=== PATIENT | male | born 1955 | race Caucasian/White ===

== ENCOUNTER 2017-05-13 11:31 | Inpatient (IN) | payer OTHER, MEDICARE ==
[~2017-05-13] VITALS: Ht 182.9 cm; Wt 89.5 kg
[~2017-05-13 11:31] MED LIST: CEPH500C3 PO; CLON-352 PO; DOXY100T PO; GABA400C5 PO; GLUCTAB PO; LISI-363 PO; LORA0.5T PO; LORTA5 PO; NEUR400C PO
[2017-05-13 11:47] VITALS: BP 121/60; PULSE 81; RESP 18; TEMP 97.8; O2SAT 99
--- NOTE | 2017-05-13 11:51 | PD ---
HPI Chief Complaint: Gomez act/psych issues Time Seen by Provider: 11:46 Travel History International Travel<30 days: No Contact w/Intl Traveler<30days: No History of Present Illness HPI 62-year-old male presents the emergency department via police under the Gomez act for suicidal ideation. Patient called 911 this morning stating that he couldn't go on anymore. Police responded and he again reiterated that he was suicidal. Patient does not have a specific plan for killing himself. He is placed under the Gomez act and brought to the emergency department for further evaluation and treatment. Patient has multiple medical problems including hypertension and diabetes as well as history of bipolar disorder for which she is not taking his meds for several weeks. He complains of chronic left shoulder pain which has been ongoing for the past year. He denies fever, chills, but reports being very thirsty. He denies any recent drug use but has had some alcohol this morning. He has no known drug allergies. 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) Reproductive: No Respiratory: No Immunizations Current: Yes Migraines: No Myocardial Infarction: No Renal Failure: No Seizures: No Sleep Apnea: No Ulcer: No PNEUMOCCOCAL Vaccine (Year): 2 Past Surgical History Abdominal Surgery: No Appendectomy: No Cardiac Surgery: No Cholecystectomy: No Ear Surgery: No Endocrine Surgery: No Eye Surgery: No Genitourinary Surgery: No Gynecologic Surgery: No Neurologic Surgery: Yes (NECK SURGERY; CURRENTLY DENIES) Oral Surgery: No Thoracic Surgery: No Social History Alcohol Use: Yes (STATES HE BINGE DRINKS SEVERAL TIMES A MONTH) Tobacco Use: Yes (1 PPD) Substance Use: No Allergies-Medications (Allergen,Severity, Reaction): Coded Allergies: No Known Allergies (Verified , 05/13/17) Reported Meds & Prescriptions Reported Meds & Active Scripts Active Reported Hydrocodone-Acetaminophen 10-325 mg Tab 1 Tab PO Q6H PRN Glipizide 5 Mg Tab 2.5 Mg PO DAILY Take 30 minutes before a meal Lisinopril 20 Mg Tab 20 Mg PO DAILY Alprazolam 0.5 Mg Tab 0.5 Mg PO Q8H PRN Atorvastatin (Atorvastatin Calcium) 20 Mg Tab 20 Mg PO HS Clonidine (Clonidine HCl) 0.1 Mg Tab 0.1 Mg PO BID Proair Hfa 8.5 GM Inh (Albuterol Sulfate) 90 Mcg/Act Aer 2 Puff INH Q4-6H PRN 108 mcg/actuation Metformin (Metformin HCl) 500 Mg Tab 500 Mg PO TID With meals Review of Systems Except as stated in HPI: all other systems reviewed are Neg General / Constitutional: No: Fever, Chills Eyes: No: Visual changes HENT: No: Headaches, Sore Throat, Rhinitis, Rhinorrhea Cardiovascular: No: Chest Pain or Discomfort Respiratory: No: Cough, Shortness of Breath Gastrointestinal: No: Nausea, Vomiting, Diarrhea, Abdominal Pain Genitourinary: No: Dysuria Musculoskeletal: No: Pain Skin: No Rash Neurologic: No: Weakness Psychiatric: No: Depression Endocrine: No: Polydipsia Hematologic/Lymphatic: No: Easy Bruising Physical Exam Narrative GENERAL: Patient appears in no acute distress. SKIN: Warm and dry. Normal color. Normal turgor. Older abrasion to the inner left forearm. No current open wounds or bleeding. HEAD: Atraumatic. Normocephalic. EYES: Pupils equal and round. No scleral icterus. No injection or drainage. ENT: No nasal bleeding or discharge. Mucous membranes pink and moist. Pharynx is clear. NECK: Trachea midline. Supple and nontender. CARDIOVASCULAR: Regular rate and rhythm. RESPIRATORY: No accessory muscle use. Clear to auscultation. Breath sounds equal bilaterally. GASTROINTESTINAL: Abdomen soft, non-tender, nondistended. Hepatic and splenic margins not palpable. MUSCULOSKELETAL: Extremities without clubbing, cyanosis, or edema. No obvious deformities. NEUROLOGICAL: Awake and alert. No obvious cranial nerve deficits. Motor grossly within normal limits. Five out of 5 muscle strength in the arms and legs. Normal speech. PSYCHIATRIC: Appropriate mood and affect; insight and judgment normal. Data Data Last Documented VS Vital Signs Date Time Temp Pulse Resp B/P Pulse Ox O2 Delivery O2 Flow Rate FiO2 05/13/17 11:55 17 99 Room Air 05/13/17 11:47 97.8 81 121/60 Orders Complete Blood Count With Diff (05/13/17 11:51) Comprehensive Metabolic Panel (05/13/17 11:51) Urinalysis - C+S If Indicated (05/13/17 11:51) Iv Access Insert/Monitor (05/13/17 11:51) Ecg Monitoring (05/13/17 11:51) Oximetry (05/13/17 11:51) Sodium Chloride 0.9% Flush (Ns Flush) (05/13/17 12:00) Labs Laboratory Tests Test 05/13/17 11:51 White Blood Count 7.5 TH/MM3 Red Blood Count 3.77 MIL/MM3 Hemoglobin 12.7 GM/DL Hematocrit 36.0 % Mean Corpuscular Volume 95.4 FL Mean Corpuscular Hemoglobin 33.5 PG Mean Corpuscular Hemoglobin 35.2 % Concent Red Cell Distribution Width 13.1 % Platelet Count 227 TH/MM3 Mean Platelet Volume 8.7 FL Neutrophils (%) (Auto) 69.2 % Lymphocytes (%) (Auto) 20.2 % Monocytes (%) (Auto) 9.0 % Eosinophils (%) (Auto) 1.4 % Basophils (%) (Auto) 0.2 % Neutrophils # (Auto) 5.2 TH/MM3 Lymphocytes # (Auto) 1.5 TH/MM3 Monocytes # (Auto) 0.7 TH/MM3 Eosinophils # (Auto) 0.1 TH/MM3 Basophils # (Auto) 0.0 TH/MM3 CBC Comment DIFF FINAL Differential Comment Sodium Level 123 MEQ/L Potassium Level 4.3 MEQ/L Chloride Level 89 MEQ/L Carbon Dioxide Level 20.7 MEQ/L Anion Gap 13 MEQ/L Blood Urea Nitrogen 5 MG/DL Creatinine 1.03 MG/DL Estimat Glomerular Filtration 74 ML/MIN Rate Random Glucose 137 MG/DL Calcium Level 7.1 MG/DL Protein Corrected Calcium 7.5 MG/DL Total Bilirubin 0.7 MG/DL Aspartate Amino Transf 84 U/L (AST/SGOT) Alanine Aminotransferase 57 U/L (ALT/SGPT) Alkaline Phosphatase 68 U/L Total Protein 6.4 GM/DL Albumin 3.4 GM/DL [facility] Medical Decision Making Medical Screen Exam Complete: Yes Emergency Medical Condition: Yes Medical Record Reviewed: Yes Differential Diagnosis Gomez act. Suicidal ideation. Bipolar disorder. Narrative Course Patient is medically stable. Psychiatric labs are ordered per protocol. Psychiatric eval is ordered. CBC shows mild anemia with a hemoglobin of 12.1. CMP shows sodium 123. Chloride of 89. Potassium is 4.3, carbon dioxide is 20.7. BUN is 5. Creatinine is 1.03. Leukos is 137. Calcium is 7.1. Corrected calcium is 7.5. Patient discussed with Dr. Amador who feels the patient should be admitted for his hyponatremia, prior to psych eval. 1310 hrs. call was placed to the hospitalist for admission. Diagnosis Primary Impression: Hyponatremia Additional Impressions: Diabetes Qualified Code: E11.8 - Type 2 diabetes mellitus with complication, without long-term current use of insulin HTN (hypertension) Qualified Code: I10 - Hypertension, unspecified type Chronic pain Qualified Code: G89.29 - Other chronic pain Depression with suicidal ideation Admitting Information Admitting Physician Requests: Admit Condition: Stable Eidlson Prado May 13, 2017 11:51
[2017-05-13 11:55] VITALS: RESP 17; O2SAT 99
[2017-05-13] MEDS ORDERED: SODIUM CHLORIDE 0.9% FLUSH 10 ML FLUSH IV FLUSH PRN (12:00)
[2017-05-13] MEDS ORDERED: GLIP5TAB8 PO (12:20)
[2017-05-13] MEDS ORDERED: METF500T PO (12:20)
[2017-05-13] MEDS ORDERED: LISI-515 PO (12:20)
[2017-05-13] MEDS ORDERED: ALPR0.5T3 PO (12:20)
[2017-05-13] MEDS ORDERED: ALBUAER3 INH (12:20)
[2017-05-13] MEDS ORDERED: HYDR-3583 PO (12:20)
[2017-05-13] MEDS ORDERED: CLON0.1T PO (12:20)
[2017-05-13] MEDS ORDERED: ATOR20TA15 PO (12:20)
[2017-05-13 12:32] LABS: AUTOMATED NEUTROPHIL # 5.2 TH/MM3 (1.8-7.7); BASOPHIL % 0.2 % (0.0-2.0); EOSINOPHIL # 0.1 TH/MM3 (0-0.4); EOSINOPHIL % 1.4 % (0.0-4.0); HEMO FLAGS DIFF FINAL; LYMPH % 20.2 % (9.0-44.0); LYMPHOCYTE # 1.5 TH/MM3 (1.0-4.8); MEAN CELL VOLUME 95.4 FL (80.0-100.0); MEAN CORPUSCULAR HEMOGLOBIN 33.5 PG (27.0-34.0); MEAN CORPUSCULAR HGB CONC 35.2 % (32.0-36.0); NEUT % 69.2 % (16.0-70.0); PLATELET COUNT 227 TH/MM3 (150-450); RED BLOOD COUNT 3.77 MIL/MM3 (4.50-5.90); RED CELL DISTRIBUTION WIDTH 13.1 % (11.6-17.2); WHITE BLOOD COUNT 7.5 TH/MM3 (4.0-11.0)
[2017-05-13 12:54] LABS: BICARBONATE 20.7 MEQ/L (21.0-32.0); CALCIUM-PROTEIN CORRECTED 7.5 MG/DL (8.5-10.1); POTASSIUM 4.3 MEQ/L (3.5-5.1); TOTAL BILIRUBIN ADULT 0.7 MG/DL (0.2-1.0)
--- NOTE | 2017-05-13 13:27 | PD ---
Data Data Last Documented VS Vital Signs Date Time Temp Pulse Resp B/P Pulse Ox O2 Delivery O2 Flow Rate FiO2 05/13/17 11:55 17 99 Room Air 05/13/17 11:47 97.8 81 121/60 Orders Complete Blood Count With Diff (05/13/17 11:51) Comprehensive Metabolic Panel (05/13/17 11:51) Urinalysis - C+S If Indicated (05/13/17 11:51) Iv Access Insert/Monitor (05/13/17 11:51) Ecg Monitoring (05/13/17 11:51) Oximetry (05/13/17 11:51) Sodium Chloride 0.9% Flush (Ns Flush) (05/13/17 12:00) Diet 1800 Ada Cons Carb (05/13/17 Lunch) Diet Heart Healthy (05/13/17 Lunch) Vital Signs (Adult) LUIS.Q4H (05/13/17 13:20) Sodium (Na) (05/13/17 18:00) Sodium (Na) (05/14/17 00:00) Basic Metabolic Panel (Bmp) (05/14/17 06:00) Blood Glucose Goal (Criteria) (05/13/17 13:20) Hypoglycemia 70 Mg/Dl Or < (05/13/17 13:20) Notify Dr: Other (05/13/17 13:20) Dextrose 50% In José Miguel (Vial) Inj (D50w (Vi (05/13/17 13:30) Glucagon Inj (Glucagon Inj) (05/13/17 13:30) Insulin Aspart Supplemtl Scale (Novolog (05/13/17 16:00) Electrocardiogram (05/13/17 ) Admit Order (Ed Use Only) (05/13/17 13:21) Labs Laboratory Tests Test 05/13/17 11:51 White Blood Count 7.5 TH/MM3 Red Blood Count 3.77 MIL/MM3 Hemoglobin 12.7 GM/DL Hematocrit 36.0 % Mean Corpuscular Volume 95.4 FL Mean Corpuscular Hemoglobin 33.5 PG Mean Corpuscular Hemoglobin 35.2 % Concent Red Cell Distribution Width 13.1 % Platelet Count 227 TH/MM3 Mean Platelet Volume 8.7 FL Neutrophils (%) (Auto) 69.2 % Lymphocytes (%) (Auto) 20.2 % Monocytes (%) (Auto) 9.0 % Eosinophils (%) (Auto) 1.4 % Basophils (%) (Auto) 0.2 % Neutrophils # (Auto) 5.2 TH/MM3 Lymphocytes # (Auto) 1.5 TH/MM3 Monocytes # (Auto) 0.7 TH/MM3 Eosinophils # (Auto) 0.1 TH/MM3 Basophils # (Auto) 0.0 TH/MM3 CBC Comment DIFF FINAL Differential Comment Sodium Level 123 MEQ/L Potassium Level 4.3 MEQ/L Chloride Level 89 MEQ/L Carbon Dioxide Level 20.7 MEQ/L Anion Gap 13 MEQ/L Blood Urea Nitrogen 5 MG/DL Creatinine 1.03 MG/DL Estimat Glomerular Filtration 74 ML/MIN Rate Random Glucose 137 MG/DL Calcium Level 7.1 MG/DL Protein Corrected Calcium 7.5 MG/DL Total Bilirubin 0.7 MG/DL Aspartate Amino Transf 84 U/L (AST/SGOT) Alanine Aminotransferase 57 U/L (ALT/SGPT) Alkaline Phosphatase 68 U/L Total Protein 6.4 GM/DL Albumin 3.4 GM/DL MDM Supervised Visit with VALENTE: Yes Narrative Course The history, exam, and medical decision-making in the associated midlevel provider note were completed with my assistance. I reviewed and agree with the findings presented. I attest that I had a [id number] encounter with the patient on the same day, and personally performed and documented my assessment and findings in the medical record. *My assessment and Findings: This is a 62-year-old male who was brought into the emergency department under a Gomez act for suicidal ideation. He does have a history of some alcohol abuse in the past. Labs are obtained which demonstrate hyponatremia. Clinically he looks dry. He will be admitted for gentle IV hydration and can see psychiatry as an inpatient. Diagnosis Primary Impression: Hyponatremia Additional Impressions: HTN (hypertension) Qualified Code: I10 - Hypertension, unspecified type Chronic pain Qualified Code: G89.29 - Other chronic pain Depression with suicidal ideation Diabetes Qualified Code: E11.8 - Type 2 diabetes mellitus with complication, without long-term current use of insulin Condition: Raquel Padilla MD May 13, 2017 13:27
[2017-05-13] MEDS ORDERED: DEXTROSE 50% IN WATER 50 ML VIAL(D50) IV PRN (13:30)
[2017-05-13] MEDS ORDERED: GLUCAGON 1 MG/ML VIAL OTHER PRN (13:30)
--- NOTE | 2017-05-13 13:43 | HHI.HP ---
[facility]Staff Admission Diagnosis Hyponatremia/Suicidal Diagnoses: (1) Hyponatremia Diagnosis: Principal (2) Suicidal thoughts Diagnosis: Principal Chief Complaint: suicidal thoughts Travel History International Travel<30 Days: No Contact w/Intl Traveler <30 Da: No Traveled to Known Affected Are: No History of Present Illness patient is a 62 y/o male with history of hypertension,diabetes,dyslipidemia and COPD who was brought to ER under gomez act - with suicidal thoughts.he says that he's depressed, tired and start to drink a bit recently. he says that his last drink was last night. he's complaining of some lower extremity muscle spasm and some nausea. he says that he had a recent fall with no head trauma or loss of consciousness.he denies any abdominal pain, chest pain and is in no respiratory distress. Review of Systems Constitutional: DENIES: Fever, Weight loss, Chills, Night Sweats Eyes: DENIES: Blurred vision, Diplopia, Vision loss, Double Vision Ears, nose, mouth, throat: DENIES: Tinnitus, Vertigo, Throat pain, Epistaxis Respiratory: DENIES: Apneas, Cough, Snoring, Wheezing, Hemoptysis, Sputum production, Shortness of breath Cardiovascular: DENIES: Chest pain, Palpitations, Syncope, Dyspnea on Exertion , PND, Lower Extremity Edema, Orthopnea, Claudication Gastrointestinal: COMPLAINS OF: Nausea, DENIES: Abdominal pain, Black stools, Bloody stools, Constipation, Diarrhea, Vomiting, Difficulty Swallowing, Anorexia Genitourinary: DENIES: Urinary frequency, Urgency, Hematuria, Dysuria Musculoskeletal: COMPLAINS OF: Muscle aches, DENIES: Joint pain, Stiffness, Joint Swelling Integumentary: DENIES: Rash Neurologic: DENIES: Abnormal gait, Headache, Localized weakness, Paresthesias, Seizures, Speech Problems, Tremor, Poor Balance Psychiatric: COMPLAINS OF: Depression, Suicidal Ideation, DENIES: Anxiety, Confusion, Mood changes, Hallucinations, Agitation, Homicidal Ideation, Delusions Past Family Social History Past Medical History hypertension diabetes mellitus dyslipidemia COPD Past Surgical History none. Reported Medications Hydrocodone-Acetaminophen 10-325 mg Tab 1 Tab PO Q6H PRN Glipizide 5 Mg Tab 2.5 Mg PO DAILY Take 30 minutes before a meal Lisinopril 20 Mg Tab 20 Mg PO DAILY Alprazolam 0.5 Mg Tab 0.5 Mg PO Q8H PRN Atorvastatin (Atorvastatin Calcium) 20 Mg Tab 20 Mg PO HS Clonidine (Clonidine HCl) 0.1 Mg Tab 0.1 Mg PO BID Proair Hfa 8.5 GM Inh (Albuterol Sulfate) 90 Mcg/Act Aer 2 Puff INH Q4-6H PRN 108 mcg/actuation Metformin (Metformin HCl) 500 Mg Tab 500 Mg PO TID With meals Allergies: Coded Allergies: No Known Allergies (Verified , 05/13/17) Active Ordered Medications Current Medications Sodium Chloride (NS Flush) 2 ml UNSCH PRN IV FLUSH FLUSH AFTER USING IV ACCESS ; Start 05/13/17 at 12:00 Dextrose (D50w (Vial) Inj) 50 ml UNSCH PRN IV HYPOGLYCEMIA-SEE COMMENTS; Start 05/13/17 at 13:30 Glucagon (Glucagon Inj) 1 mg UNSCH PRN OTHER HYPOGLYCEMIA-SEE COMMENTS; Start 05/13/17 at 13:30 Insulin Aspart (NovoLOG SUPPLEMENTAL SCALE) 1 ACHS SLIDING SCALE SQ ; Start 07/20 at 16:00 Family History not relevant to this presentation. Social History smokes a pack a day - with binge drinking. Physical Exam Vital Signs Vital Signs Date Time Temp Pulse Resp B/P Pulse Ox O2 Delivery O2 Flow Rate FiO2 05/13/17 11:55 17 99 Room Air 05/13/17 11:47 17 05/13/17 11:47 97.8 81 18 121/60 99 Physical Exam GENERAL: This is a well-nourished, well-developed patient, in no apparent distress. SKIN:bruise noted on the left upper extremity. HEAD: Atraumatic. Normocephalic. No temporal or scalp tenderness. EYES: Pupils equal round and reactive. Extraocular motions intact. No scleral icterus. No injection or drainage. ENT: Nose without bleeding, purulent drainage or septal hematoma. Throat without erythema, tonsillar hypertrophy or exudate. Uvula midline. Airway patent. NECK: Trachea midline. No JVD or lymphadenopathy. Supple, nontender, no meningeal signs. CARDIOVASCULAR: Regular rate and rhythm without murmurs, gallops, or rubs. RESPIRATORY: Clear to auscultation. Breath sounds equal bilaterally. No wheezes , rales, or rhonchi. GASTROINTESTINAL: Abdomen soft, non-tender, nondistended. No hepato-splenomegaly , or palpable masses. No guarding. MUSCULOSKELETAL: Extremities without clubbing, cyanosis, or edema. No joint tenderness, effusion, or edema noted. No calf tenderness. Negative Homans sign bilaterally. NEUROLOGICAL: Awake and alert. Cranial nerves II through XII intact. Motor and sensory grossly within normal limits. Five out of 5 muscle strength in all muscle groups. Normal speech. Laboratory Laboratory Tests Test 05/13/17 11:51 White Blood Count 7.5 Red Blood Count 3.77 Hemoglobin 12.7 Hematocrit 36.0 Mean Corpuscular Volume 95.4 Mean Corpuscular Hemoglobin 33.5 Mean Corpuscular Hemoglobin 35.2 Concent Red Cell Distribution Width 13.1 Platelet Count 227 Mean Platelet Volume 8.7 Neutrophils (%) (Auto) 69.2 Lymphocytes (%) (Auto) 20.2 Monocytes (%) (Auto) 9.0 Eosinophils (%) (Auto) 1.4 Basophils (%) (Auto) 0.2 Neutrophils # (Auto) 5.2 Lymphocytes # (Auto) 1.5 Monocytes # (Auto) 0.7 Eosinophils # (Auto) 0.1 Basophils # (Auto) 0.0 CBC Comment DIFF FINAL Differential Comment Sodium Level 123 Potassium Level 4.3 Chloride Level 89 Carbon Dioxide Level 20.7 Anion Gap 13 Blood Urea Nitrogen 5 Creatinine 1.03 Estimat Glomerular Filtration 74 Rate Random Glucose 137 Calcium Level 7.1 Protein Corrected Calcium 7.5 Total Bilirubin 0.7 Aspartate Amino Transf 84 (AST/SGOT) Alanine Aminotransferase 57 (ALT/SGPT) Alkaline Phosphatase 68 Total Protein 6.4 Albumin 3.4 Result Diagram: 05/13/17 1151 05/13/17 1151 Assessment and Plan Assessment and Plan A/P - suicidal thoughts- on Gomez act- will consult psych- sitter at the bedside. -hyponatremia- likely due to alcohol abuse- will start IV NS and monitor the sodium level. -diabetes mellitus; accu-check with SSI -hypertension; hold BP meds for now- -COPD with no exacerbation; albuterol as needed. -DVT prophylaxis with SCD's Discussed Condition With ER and the patient. Physician Certification 2 Midnight Certification Type: Admission for Inpatient Services Order for Inpatient Services The services are ordered in accordance with Medicare regulations or non- Medicare payer requirements, as applicable. In the case of services not specified as inpatient-only, they are appropriately provided as inpatient services in accordance with the 2-midnight benchmark. Estimated LOS (days): 2 days is the estimated time the patient will need to remain in the hospital, assuming treatment plan goals are met and no additional complications. Post-Hospital Plan: Not yet determined Adriane Bal MD May 13, 2017 13:43
[2017-05-13] MEDS ORDERED: LORazepam 1 MG TAB PO PRN (13:45)
[2017-05-13] MEDS ORDERED: FLUMAZENIL 0.5 MG/5 ML VIAL IV PUSH PRN (13:45)
[2017-05-13] MEDS ORDERED: LORazepam 2 MG TAB PO PRN (13:45)
[2017-05-13] MEDS ORDERED: LORazepam 2 MG/ML VIAL IV PUSH PRN ×4 (13:45)
[2017-05-13] MEDS: THIAMINE HCL 100 MG TAB PO SCH (13:53)
--- NOTE | 2017-05-13 13:57 | RADRPT ---
EXAM DATE/TIME: 05/13/2017 13:45 [facility] COMPARISON: No previous studies available for comparison. INDICATIONS : Short of breath MEDICAL HISTORY : Chronic obstructive pulmonary disease. SURGICAL HISTORY : None. ENCOUNTER: Initial ACUITY: 1 day PAIN SCORE: 0/10 LOCATION: chest FINDINGS: A single view of the chest demonstrates the lungs to be symmetrically aerated without evidence of mas s, infiltrate or effusion. The cardiomediastinal contours are unremarkable. Osseous structures are intact. CONCLUSION: Normal examination for a patient of this age. Sawyer Wang MD on May 13, 2017 at 13:56 Board Certified Radiologist. This report was verified electronically.
[2017-05-13 14:00] VITALS: BP 118/67; PULSE 78; RESP 17; TEMP 97.9; O2SAT 99
[2017-05-13] MEDS: SODIUM CHLOR 0.9% 1000 ML INJ 1,000 ML IV SCH (14:21)
[2017-05-13] MEDS: ALPRAZolam 0.5 MG TAB PO PRN ×2 (14:21→22:15)
[2017-05-13 14:36] LABS: BLOOD, URINE NEG (NEG); COMMENT (UR) CULT NOT INDICATED; CULTURE IF INDICATED CULT NOT INDICATED; GLUCOSE,URINE NEG (NEG); KETONE, URINE NEG (NEG); NITRITE,URINE NEG (NEG); PH, URINE 6.5 (5.0-8.5); SQUAMOUS EPITHELIAL CELL URINE <1 /hpf (0-5); URINE COLOR YELLOW (YELLW/STRAW)
[2017-05-13] MEDS: INSULIN ASPART SUPPLEMENTAL SCALE SQ SCH ×2 (15:48→22:16)
[2017-05-13 15:50] VITALS: BP 102/70; TEMP 97.8
[2017-05-13 16:10] VITALS: BP 118/57; PULSE 39; RESP 16; TEMP 97.1; O2SAT 99
[2017-05-13] MEDS ORDERED: ALBUTEROL SULFATE 90 MCG/ACT HFA 8 GM INHALER INH PRN (18:00)
[2017-05-13 20:00] VITALS: BP 141/65; PULSE 82; RESP 20; TEMP 98.1; O2SAT 97
[2017-05-13] MEDS: ATORVASTATIN 20 MG TAB PO SCH (22:15)
[2017-05-14] VITALS (9 sets, daily range): BP systolic 87–153; BP diastolic 54–76; PULSE 33–109; RESP 17–18; TEMP 97.6–98.7; O2SAT 97–99
[2017-05-14 02:14] LABS: BICARBONATE 25.2 MEQ/L (21.0-32.0); POTASSIUM 3.7 MEQ/L (3.5-5.1)
[2017-05-14 02:30] LABS: CALCIUM-PROTEIN CORRECTED 7.2 MG/DL (8.5-10.1)
[2017-05-14] MEDS ORDERED: CALCIUM GLUCONATE 10% 1 GM/10 ML VIAL IV PUSH ONE (02:45)
[2017-05-14] MEDS ORDERED: CALCIUM GLUCONATE INJ 2 GM in SODIUM CHLORIDE 0.9% INJ 100 ML IV ONE (02:45)
[2017-05-14] MEDS: INSULIN ASPART SUPPLEMENTAL SCALE SQ SCH ×4 (06:07→21:00)
[2017-05-14] MEDS: THIAMINE HCL 100 MG TAB PO SCH (09:17)
[2017-05-14] MEDS: MULTIVITAMIN TAB PO SCH (09:17)
--- NOTE | 2017-05-14 10:07 | PD.PSY.CON ---
Provisional Diagnosis Admission Date May 13, 2017 at 13:23 Landing I. A schizoaffective disorder, depressive type, alcohol use disorder Landing II. Deferred Landing III. HTN, diabetes, arthritis Landing IV. Lack of social and family support Landing V. 45 History of Present Illness Service Psychiatry Consult Requested By Reason for Consult Suicidal ideation and depression Primary Care Physician Non-Staff HPI The patient is a 62 year old man, domiciled alone, single, no kids, on disability with psychiatric history of schizoaffective disorder, bipolar type , 2 previous psychiatric hospitalizations, he has been Gomez acted before due to alcohol related issues, suicidal attempts, no established outpatient care, no psychotropics at this moment, he has been psychiatrically in [place] in the past due to alcohol intoxication and suicidal ideation, with history medical of hypertension,diabetes,dyslipidemia and COPD who was brought to ER under gomez act - with suicidal thoughts.he says that he's depressed, tired and start to drink a bit recently. he says that his last drink was last night. he's complaining of some lower extremity muscle spasm and some nausea. Admitted in the medical floor due to hyponatremia- likely due to alcohol abuse. On psychiatric evaluation today patient is found in his bed, he seems to be very distant, with marked psychomotor retardation, lack affect, objectively depressed. Patient reports that he has been increasingly drinking alcohol in the last month after a long period of sobriety. Patient says that he has been thinking seriously in ending his life and committed suicide by hanging or jumping in front of a car. Patient says the life is not worth living anymore and he has been increasingly feeling alone, detach from the society, with decreased functionality due to medical problems, with sense of worthlessness, helplessness, hopelessness, continues suicidal ideation. Yesterday he was about to lose control and he decided to call the police and give himself a chance. Patient also reports not sleeping at all, decreased weight, anhedonia, decreased level of energy "I just don't want to stick around anymore". Patient denies homicidal ideation, he denies visual and auditory hallucinations. She is unable to identify any acute stressor, but he says that his living environment is "very toxic". No protective factors identified at this moment. Patient denies visual and auditory hallucinations. Reports increased paranoia of mistrusting people around him. Oriented 3, no attention deficit, no fluctuation of consciousness. Patient denies the use of illicit drugs, increased alcohol use, he fails to quantify how much alcohol she is taking daily , just says "a lot". He reports past withdrawal symptoms, he also has been in rehabs/detox in the past,. Review of Systems Constitutional: DENIES: Diaphoretic episodes, Fatigue, Fever, Weight gain, Weight loss, Chills, Dizziness, Change in appetite, Night Sweats Endocrine: DENIES: Heat/cold intolerance, Polydipsia, Polyuria, Polyphagia Eyes: DENIES: Blurred vision, Diplopia, Eye inflammation, Eye pain, Vision loss , Photosensitivity, Double Vision Ears, nose, mouth, throat: DENIES: Tinnitus, Hearing loss, Vertigo, Nasal discharge, Oral lesions, Throat pain, Hoarseness, Ear Pain, Running Nose, Epistaxis, Sinus Pain, Toothache, Odynophagia Respiratory: DENIES: Apneas, Cough, Snoring, Wheezing, Hemoptysis, Sputum production, Shortness of breath Cardiovascular: DENIES: Chest pain, Palpitations, Syncope, Dyspnea on Exertion , PND, Lower Extremity Edema, Orthopnea, Claudication Gastrointestinal: DENIES: Abdominal pain, Black stools, Bloody stools, Constipation, Diarrhea, Nausea, Vomiting, Difficulty Swallowing, Anorexia Musculoskeletal: COMPLAINS OF: Muscle aches, Back pain Integumentary: DENIES: Abnormal pigmentation, Nail changes, Pruritus, Rash Hematologic/lymphatic: DENIES: Bruising, Lymphadenopathy Immunologic/allergic: DENIES: Eczema, Urticaria Neurologic: DENIES: Abnormal gait, Headache, Localized weakness, Paresthesias, Seizures, Speech Problems, Tremor, Poor Balance Psychiatric: COMPLAINS OF: Depression, Suicidal Ideation Past Family Social History Coded Allergies: No Known Allergies (Verified , 05/13/17) Reported Medications Hydrocodone-Acetaminophen 10-325 mg Tab1 Tab PO Q6H PRN (PAIN) Ref 0 05/13/17 Glipizide 5 Mg Tab2.5 Mg PO DAILY #60 TAB Ref 0 Take 30 minutes before a meal 05/13/17 Lisinopril 20 Mg Tab20 Mg PO DAILY #30 TAB Ref 0 05/13/17 Alprazolam 0.5 Mg Tab0.5 Mg PO Q8H PRN (ANXIETY) Ref 0 05/13/17 Atorvastatin 20 Mg Tab20 Mg PO HS #30 TAB Ref 0 05/13/17 Clonidine 0.1 Mg Tab0.1 Mg PO BID #60 TAB Ref 0 05/13/17 Albuterol 8.5 GM Inh (Proair Hfa 8.5 GM Inh)90 Mcg/Act Aer2 Puff INH Q4-6H PRN ( SHORTNESS OF BREATH) #1 INHALER Ref 0 108 mcg/actuation 05/13/17 Metformin 500 Mg [id number] Mg PO TID #60 TAB Ref 0 With meals 05/13/17 Current Medications Medications (Trade) Dose Ordered Sig/Lillian Route Start Time Stop Time Status Last Admin (NS Flush) 2 ml UNSCH PRN IV FLUSH 05/13/17 12:00 (D50w (Vial) Inj) 50 ml UNSCH PRN IV 05/13/17 13:30 (Glucagon Inj) 1 mg UNSCH PRN OTHER 05/13/17 13:30 (Romazicon Inj) 0.2 mg Q1M PRN IV PUSH 05/13/17 13:45 (Ativan) 1 mg Q4H PRN PO 05/13/17 13:45 (Ativan Inj) 1 mg Q4H PRN IV PUSH 05/13/17 13:45 (Ativan) 2 mg Q2H PRN PO 05/13/17 13:45 (Ativan Inj) 2 mg Q2H PRN IV PUSH 05/13/17 13:45 (Ativan Inj) 2 mg Q1H PRN IV PUSH 05/13/17 13:45 (Ativan Inj) 2 mg Q15M PRN IV PUSH 05/13/17 13:45 (Vitamin B1) 100 mg DAILY PO 05/13/17 15:00 05/14/17 09:17 (Theragran) 1 tab DAILY PO 05/14/17 09:00 05/14/17 09:17 (Proair Hfa Inh) 2 puff Q6HR PRN INH 05/13/17 18:00 (Xanax) 0.5 mg Q8H PRN PO 05/13/17 13:45 05/13/17 22:15 Atorvastatin Calcium 20 mg 20 mg HS PO 05/13/17 21:00 05/13/17 22:15 (NS 1000 ml Inj) 1,000 ml @ 50 mls/hr Q20H IV 05/13/17 14:00 05/14/17 00:00 Family History He denies a family history Social History This was born and raised in [facility], he lives alone in [facility], he is single, no kids, unemployed, with disability, highest level of education is high school Patient's Strengths (min. 2) Verbal communication Physical Exam Patient seems to be hypoactive, with marked psychomotor retardation, distant, but no tremors, no withdrawal, no EPS symptoms, no gait disturbance present. Vital Signs Vital Signs Date Time Temp Pulse Resp B/P Pulse Ox O2 Delivery O2 Flow Rate FiO2 05/14/17 08:22 97.6 33 18 134/63 97 05/13/17 14:00 Room Air I/O 05/13/17 05/13/17 05/14/17 08:00 16:00 00:00 Intake Total 200 ml Output Total 600 ml Balance -400 ml Lab Results Laboratory Tests Test 05/13/17 11:51 White Blood Count 7.5 Red Blood Count 3.77 Hemoglobin 12.7 Hematocrit 36.0 Mean Corpuscular Volume 95.4 Mean Corpuscular Hemoglobin 33.5 Mean Corpuscular Hemoglobin 35.2 Concent Red Cell Distribution Width 13.1 Platelet Count 227 Mean Platelet Volume 8.7 Neutrophils (%) (Auto) 69.2 Lymphocytes (%) (Auto) 20.2 Monocytes (%) (Auto) 9.0 Eosinophils (%) (Auto) 1.4 Basophils (%) (Auto) 0.2 Neutrophils # (Auto) 5.2 Lymphocytes # (Auto) 1.5 Monocytes # (Auto) 0.7 Eosinophils # (Auto) 0.1 Basophils # (Auto) 0.0 CBC Comment DIFF FINAL Differential Comment Sodium Level 123 Potassium Level 4.3 Chloride Level 89 Carbon Dioxide Level 20.7 Anion Gap 13 Blood Urea Nitrogen 5 Creatinine 1.03 Estimat Glomerular Filtration 74 Rate Random Glucose 137 Calcium Level 7.1 Protein Corrected Calcium 7.5 Total Bilirubin 0.7 Aspartate Amino Transf 84 (AST/SGOT) Alanine Aminotransferase 57 (ALT/SGPT) Alkaline Phosphatase 68 Total Protein 6.4 Albumin 3.4 Result Diagram: 05/13/17 1151 05/13/17 1151 Mental Status Examination Appearance man, age appearing, good hygiene, in [facility], superficially cooperative, hypoactive, seems to be distant Speech: Hesitant, Slow Orientation: x3 Memory: Unremarkable Thought Process: Logical, Goal Directed, Linear Thought Content: Paranoid Language Adequate grammar, adequate sentence structure, adequate wording Fund of Knowledge 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 Hallucination Type: None Attention and Concentration: Good Suicidal Ideation: Yes Previous Suicide Attempts: Yes Homicidal Ideation: No Previous Homicide Attempts: No Judgment: Poor Affect: Irritable Mood: Sad Motor Activity: Normal gait Assessment & Plan Problem List: (1) Schizoaffective disorder, depressive type Assessment & Plan: On psychiatric evaluation today patient reports about a month of ongoing symptomatology of depression consistent in mostly anhedonia, decreased functionality, low level of concentration, low energy, decreased weight, sense of worthlessness, hopelessness, helplessness, continue suicidal ideation with a plan of hanging. Patient also shows neurovegetative symptoms of depressions consisting in insomnia, melancholia, decreased weight, psychomotor retardation. Patient definitely meets criteria for involuntary psychiatric admission at this moment. Extensive support, motivation and psychoeducation provided. Continue CIWA protocol. We will start Trazodone 100 mg at bedtime to help with depression and insomnia. Continue 1:1 sitter in medical floor. Transfer to psychiatry once medically appropriate. ICD Code: F25.1 Assessment & Plan Estimated LOS: Sergio Salazar MD May 14, 2017 10:06
--- NOTE | 2017-05-14 10:11 | HHI.PR ---
Subjective Remarks in no acute distress. complaining of some pain to the left shoulder. has mild headache. Objective Vitals Vital Signs Date Time Temp Pulse Resp B/P Pulse Ox O2 Delivery O2 Flow Rate FiO2 05/14/17 08:22 97.6 33 18 134/63 97 05/14/17 04:30 97.6 62 18 116/60 97 05/14/17 02:52 61 05/14/17 01:37 98.1 109 17 87/54 97 05/13/17 20:00 98.1 82 20 141/65 97 05/13/17 16:10 97.1 39 16 118/57 99 05/13/17 15:50 97.8 79 16 102/70 99 05/13/17 14:00 97.9 78 17 118/67 99 Room Air 05/13/17 11:55 17 99 Room Air 05/13/17 11:47 17 05/13/17 11:47 97.8 81 18 121/60 99 I/O 05/13/17 05/13/17 05/13/17 05/14/17 05/14/17 05/14/17 07:00 15:00 23:00 07:00 15:00 23:00 Intake Total 200 ml 1423 ml Output Total 600 ml Balance -400 ml 1423 ml Intake Oral 200 ml IV Total 1423 ml Output Urine Total 600 ml # Voids 1 2 # Bowel Movements 0 2 Result Diagram: 05/13/17 1151 05/14/17 0115 Imaging Last Impressions Chest X-Ray 05/13/17 0000 Signed Impressions: Service Date/Time: May 13:45 - CONCLUSION: Normal examination for a patient of this age. Sawyer Wang MD Objective Remarks GENERAL: This is a well-nourished, well-developed patient, in no apparent distress. CARDIOVASCULAR: Regular rate and regular rhythm without murmurs, gallops, or rubs. RESPIRATORY: Clear to auscultation. Breath sounds equal bilaterally. No wheezes , rales, or rhonchi. GASTROINTESTINAL: Abdomen soft, non-tender, nondistended. Normal, active bowel sounds MUSCULOSKELETAL: some tenderness over the left shoulder with decrease in ROM. NEURO: Alert & Oriented x4 to person, place, time, situation. Moves all ext x4 Procedures none Medications and IVs Current Medications Sodium Chloride (NS Flush) 2 ml UNSCH PRN IV FLUSH FLUSH AFTER USING IV ACCESS ; Start 05/13/17 at 12:00 Dextrose (D50w (Vial) Inj) 50 ml UNSCH PRN IV HYPOGLYCEMIA-SEE COMMENTS; Start 05/13/17 at 13:30 Glucagon (Glucagon Inj) 1 mg UNSCH PRN OTHER HYPOGLYCEMIA-SEE COMMENTS; Start 05/13/17 at 13:30 Insulin Aspart (NovoLOG SUPPLEMENTAL SCALE) 1 ACHS SLIDING SCALE SQ ; Start 07/20 at 16:00 Flumazenil (Romazicon Inj) 0.2 mg Q1M PRN IV PUSH SEE LABEL COMMENTS; Start 07/20 at 13:45 Lorazepam (Ativan) 1 mg Q4H PRN PO CIWA 8 - 10; Start 05/13/17 at 13:45 Lorazepam (Ativan Inj) 1 mg Q4H PRN IV PUSH CIWA 8 - 10; Start 05/13/17 at 13: 45 Lorazepam (Ativan) 2 mg Q2H PRN PO CIWA 11-14; Start 05/13/17 at 13:45 Lorazepam (Ativan Inj) 2 mg Q2H PRN IV PUSH CIWA 11-14; Start 05/13/17 at 13:45 Lorazepam (Ativan Inj) 2 mg Q1H PRN IV PUSH CIWA 15-20; Start 05/13/17 at 13:45 Lorazepam (Ativan Inj) 2 mg Q15M PRN IV PUSH CIWA > 20; Start 05/13/17 at 13:45 Thiamine HCl (Vitamin B1) 100 mg DAILY PO Last administered on 05/14/17 09:17 ; Start 05/13/17 at 15:00 Multivitamins (Theragran) 1 tab DAILY PO Last administered on 05/14/17 09:17; Start 05/14/17 at 09:00 Albuterol Sulfate (Proair Hfa Inh) 2 puff Q6HR PRN INH SHORTNESS OF BREATH; Start 05/13/17 at 18:00 Alprazolam (Xanax) 0.5 mg Q8H PRN PO ANXIETY Last administered on 05/13/17 22: 15; Start 05/13/17 at 13:45 Atorvastatin Calcium 20 mg 20 mg HS PO Last administered on 05/13/17 22:15; Start 05/13/17 at 21:00 Sodium Chloride (NS 1000 ml Inj) 1,000 ml @ 50 mls/hr Q20H IV Last administered on 05/14/17 00:00; Start 05/13/17 at 14:00 Calcium Gluconate 2 gm 2 gm ONCE ONCE IV PUSH ; Start 05/14/17 at 02:45; Stop 05/14/17 at 02:46; Status UNV Calcium Gluconate/ Sodium Chloride (Calcium Gluconate Inj/NS Inj) 120 ml @ 120 mls/hr ONCE ONCE IV Last administered on 05/14/17 03:14; Start 05/14/17 at 02 :45; Stop 05/14/17 at 03:44; Status DC A/P Assessment and Plan A/P - suicidal thoughts- on Gomez act- psych consult pending- sitter at the bedside. -hyponatremia- likely due to alcohol abuse- improving-continue IV NS and monitor the sodium level. -hypocalcemia; replaced- will monitor. -diabetes mellitus; accu-check with SSI -hypertension; hold BP meds for now- -COPD with no exacerbation; albuterol as needed. -DVT prophylaxis with SCD's Discharge Planning dc to psych tomorrow- if stable- Adriane Bal MD May 14, 2017 10:11
--- NOTE | 2017-05-14 11:29 | RADRPT ---
EXAM DATE/TIME: 05/14/2017 10:40 [place] COMPARISON: No previous studies available for comparison. INDICATIONS : Left shoulder pain, no known trauma. MEDICAL HISTORY : Arthritis. SURGICAL HISTORY : None. ENCOUNTER: Initial ACUITY: 1 day PAIN SCORE: 10/10 LOCATION: Left shoulder FINDINGS: Multiple view examination of the left shoulder demonstrates no evidence of fracture or dislocation. The glenohumeral and acromioclavicular joints are maintained. There is normal range of motion betwee n internal and external rotation. Bony mineralization is normal. CONCLUSION: No acute disease or significant arthropathy. Gabriel Mckeon MD on May 14, 2017 at 11:27 Board Certified Radiologist. This report was verified electronically.
[2017-05-14 15:04] LABS: BICARBONATE 23.7 MEQ/L (21.0-32.0); POTASSIUM 4.3 MEQ/L (3.5-5.1)
--- NOTE | 2017-05-14 17:15 | EKG ---
Date Performed: 05/13/2017 Time Performed: 13:33:42 PTAGE: 62 years EKG: Sinus rhythm Compared to previous tracing, no significant change NORMAL ECG PREVIOUS TRACING : 06/14/2010 @ 1822 DOCTOR: Cristian Noland Interpretating Date/Time 05/14/2017 17:14:20
--- NOTE | 2017-05-14 17:15 | EKG ---
Date Performed: 05/13/2017 Time Performed: 20:21:12 PTAGE: 62 years EKG: Sinus rhythm WITH FREQUENT VENTRICULAR PREMATURE COMPLEXES IN A BIGEMINAL PATTERN NONSPECIFIC T-WAVE ABNORMALITY Compared to previous tracing, the ventricular bigeminy is new ABNORMAL RHYTHM ECG PREVIOUS TRACING : 05/13/2017 13.33 DOCTOR: Cristian Noland Interpretating Date/Time 05/14/2017 17:15:03
[2017-05-14] MEDS: SODIUM CHLOR 0.9% 1000 ML INJ 1,000 ML IV SCH ×2 (17:24)
[2017-05-14] MEDS: traZODone HCL 100 MG TAB PO SCH ×2 (21:00→21:19)
[2017-05-14] MEDS: ATORVASTATIN 20 MG TAB PO SCH (21:18)
[2017-05-14] MEDS: ACETAMINOPHEN/HYDROcodone 325 MG/5 MG TAB PO PRN (21:19)
[2017-05-15] VITALS (9 sets, daily range): BP systolic 132–161; BP diastolic 61–86; PULSE 62–82; RESP 18–20; TEMP 97.2–98.4; O2SAT 97–99
[2017-05-15] MEDS: ALPRAZolam 0.5 MG TAB PO PRN ×3 (00:07→23:14)
[2017-05-15] MEDS: ACETAMINOPHEN/HYDROcodone 325 MG/5 MG TAB PO PRN ×3 (06:20→20:21)
[2017-05-15] MEDS: INSULIN ASPART SUPPLEMENTAL SCALE SQ SCH ×4 (06:20→20:37)
[2017-05-15] MEDS: MULTIVITAMIN TAB PO SCH (08:15)
[2017-05-15] MEDS: THIAMINE HCL 100 MG TAB PO SCH (08:15)
[2017-05-15 08:35] LABS: BICARBONATE 27.1 MEQ/L (21.0-32.0)
--- NOTE | 2017-05-15 10:45 | HHI.PR ---
Subjective Remarks in no acute distress. still with pain to the left shoulder with decrease in ROM. Objective Vitals Vital Signs Date Time Temp Pulse Resp B/P Pulse Ox O2 Delivery O2 Flow Rate FiO2 05/15/17 10:09 64 05/15/17 08:00 97.4 69 20 157/86 99 05/15/17 04:00 97.5 67 18 138/76 97 05/15/17 00:00 97.6 74 18 132/61 99 05/14/17 23:41 83 05/14/17 20:00 98.7 75 18 153/70 99 05/14/17 16:17 98.7 72 18 130/76 97 05/14/17 12:12 98.5 69 18 143/74 97 I/O 05/14/17 05/14/17 05/14/17 05/15/17 05/15/17 05/15/17 07:00 15:00 23:00 07:00 15:00 23:00 Intake Total 1423 ml 480 ml 439 ml Output Total 2175 ml 675 ml Balance 1423 ml -1695 ml -236 ml Intake Oral 480 ml IV Total 1423 ml 439 ml Output Urine Total 2175 ml 675 ml # Voids 3 # Bowel Movements 2 Result Diagram: 05/13/17 1151 05/15/17 0741 Imaging Last Impressions Shoulder X-Ray 05/14/17 0000 Signed Impressions: Service Date/Time: Sunday, May 14, 2017 10:40 - CONCLUSION: No acute disease or significant arthropathy. Gabriel Mckeon MD Chest X-Ray 05/13/17 0000 Signed Impressions: Service Date/Time: May 13:45 - CONCLUSION: Normal examination for a patient of this age. Sawyer Wang MD Objective Remarks GENERAL: This is a well-nourished, well-developed patient, in no apparent distress. CARDIOVASCULAR: Regular rate and regular rhythm without murmurs, gallops, or rubs. RESPIRATORY: Clear to auscultation. Breath sounds equal bilaterally. No wheezes , rales, or rhonchi. GASTROINTESTINAL: Abdomen soft, non-tender, nondistended. Normal, active bowel sounds MUSCULOSKELETAL: some tenderness over the left shoulder with decrease in ROM. NEURO: Alert & Oriented x4 to person, place, time, situation. Moves all ext x4 Procedures none Medications and IVs Current Medications Sodium Chloride (NS Flush) 2 ml UNSCH PRN IV FLUSH FLUSH AFTER USING IV ACCESS ; Start 05/13/17 at 12:00 Dextrose (D50w (Vial) Inj) 50 ml UNSCH PRN IV HYPOGLYCEMIA-SEE COMMENTS; Start 05/13/17 at 13:30 Glucagon (Glucagon Inj) 1 mg UNSCH PRN OTHER HYPOGLYCEMIA-SEE COMMENTS; Start 05/13/17 at 13:30 Insulin Aspart (NovoLOG SUPPLEMENTAL SCALE) 1 ACHS SLIDING SCALE SQ ; Start 07/20 at 16:00 Flumazenil (Romazicon Inj) 0.2 mg Q1M PRN IV PUSH SEE LABEL COMMENTS; Start 07/20 at 13:45 Lorazepam (Ativan) 1 mg Q4H PRN PO CIWA 8 - 10; Start 05/13/17 at 13:45 Lorazepam (Ativan Inj) 1 mg Q4H PRN IV PUSH CIWA 8 - 10; Start 05/13/17 at 13: 45 Lorazepam (Ativan) 2 mg Q2H PRN PO CIWA 11-14; Start 05/13/17 at 13:45 Lorazepam (Ativan Inj) 2 mg Q2H PRN IV PUSH CIWA 11-14; Start 05/13/17 at 13:45 Lorazepam (Ativan Inj) 2 mg Q1H PRN IV PUSH CIWA 15-20; Start 05/13/17 at 13:45 Lorazepam (Ativan Inj) 2 mg Q15M PRN IV PUSH CIWA > 20; Start 05/13/17 at 13:45 Thiamine HCl (Vitamin B1) 100 mg DAILY PO Last administered on 05/15/17 08:15 ; Start 05/13/17 at 15:00 Multivitamins (Theragran) 1 tab DAILY PO Last administered on 05/15/17 08:15; Start 05/14/17 at 09:00 Albuterol Sulfate (Proair Hfa Inh) 2 puff Q6HR PRN INH SHORTNESS OF BREATH; Start 05/13/17 at 18:00 Alprazolam (Xanax) 0.5 mg Q8H PRN PO ANXIETY Last administered on 05/15/17 00: 07; Start 05/13/17 at 13:45 Atorvastatin Calcium 20 mg 20 mg HS PO Last administered on 05/14/17 21:18; Start 05/13/17 at 21:00 Sodium Chloride (NS 1000 ml Inj) 1,000 ml @ 50 mls/hr Q20H IV Last administered on 05/14/17 00:00; Start 05/13/17 at 14:00 Calcium Gluconate 2 gm 2 gm ONCE ONCE IV PUSH ; Start 05/14/17 at 02:45; Stop 05/14/17 at 02:46; Status UNV Calcium Gluconate/ Sodium Chloride (Calcium Gluconate Inj/NS Inj) 120 ml @ 120 mls/hr ONCE ONCE IV Last administered on 05/14/17 03:14; Start 05/14/17 at 02 :45; Stop 05/14/17 at 03:44; Status DC Trazodone HCl (Desyrel) 100 mg HS PO Last administered on 05/14/17 21:19; Start 05/14/17 at 21:00 Trazodone HCl (Desyrel) 100 mg HS PO ; Start 05/14/17 at 21:00 Acetaminophen/ Hydrocodone Bitart ([place] 5-325 Mg) 1 tab Q4H PRN PO PAIN 1-10 Last administered on 05/15/17 06:20; Start 05/14/17 at 20:00 A/P Assessment and Plan A/P - suicidal thoughts- on Gomez act- psych consult appreciated and plan for dc to psych. -hyponatremia- likely due to alcohol abuse- improved. -hypocalcemia; replaced- -left shoulder pain with decrease in ROM; XR of the left shoulder with no fracture- will consult ortho. -diabetes mellitus; accu-check with SSI -hypertension; hold BP meds for now- -COPD with no exacerbation; albuterol as needed. -DVT prophylaxis with SCD's Discharge Planning dc to psych after ortho evaluation. d/w the patient. Adriane Bal MD May 15, 2017 10:45
[2017-05-15] MEDS ORDERED: GNP100TA3 PO (10:46)
[2017-05-15] MEDS ORDERED: THERTAB15 PO (10:46)
--- NOTE | 2017-05-15 10:47 | HHI.DS ---
Discharge Summary Admission Date May 13, 2017 at 13:23 Discharge Date: May 15, 2017 Admitting Diagnosis Hyponatremia/Suicidal (1) Hyponatremia ICD Code: E87.1 Diagnosis: Principal (2) Suicidal thoughts ICD Code: R45.851 Diagnosis: Principal Procedures none Brief History - From Admission patient is a 62 y/o male with history of hypertension,diabetes,dyslipidemia and COPD who was brought to ER under gomez act - with suicidal thoughts.he says that he's depressed, tired and start to drink a bit recently. he says that his last drink was last night. he's complaining of some lower extremity muscle spasm and some nausea. he says that he had a recent fall with no head trauma or loss of consciousness.he denies any abdominal pain, chest pain and is in no respiratory distress. CBC/BMP: 05/13/17 1151 05/15/17 0741 Significant Findings Laboratory Tests Test 05/13/17 05/13/17 05/14/17 05/14/17 11:51 19:37 01:15 14:10 Red Blood Count 3.77 MIL/MM3 (4.50-5.90) Hemoglobin 12.7 GM/DL (13.0-17.0) Hematocrit 36.0 % (39.0-51.0) Monocytes (%) (Auto) 9.0 % (0.0-8.0) Sodium Level 123 MEQ/L 124 MEQ/L 130 MEQ/L 134 MEQ/L (136-145) (136-145) (136-145) (136-145) Chloride Level 89 MEQ/L 95 MEQ/L (98-107) (98-107) Carbon Dioxide Level 20.7 MEQ/L (21.0-32.0) Blood Urea Nitrogen 5 MG/DL (7-18) Estimat Glomerular Filtration 74 ML/MIN (>89) 66 ML/MIN (>89) 67 ML/MIN (>89) Rate Random Glucose 137 MG/DL 108 MG/DL 142 MG/DL (74-106) (74-106) (74-106) Calcium Level 7.1 MG/DL 6.4 MG/DL 7.6 MG/DL (8.5-10.1) (8.5-10.1) (8.5-10.1) Protein Corrected Calcium 7.5 MG/DL 7.2 MG/DL (8.5-10.1) (8.5-10.1) Aspartate Amino Transf 84 U/L (15-37) (AST/SGOT) Total Protein 5.5 GM/DL (6.4-8.2) Test 05/15/17 07:41 Random Glucose 110 MG/DL (74-106) Calcium Level 7.7 MG/DL (8.5-10.1) Imaging Last Impressions Shoulder X-Ray 05/14/17 0000 Signed Impressions: Service Date/Time: Sunday, May 14, 2017 10:40 - CONCLUSION: No acute disease or significant arthropathy. Gabriel Mckeon MD Chest X-Ray 05/13/17 0000 Signed Impressions: Service Date/Time: May 13:45 - CONCLUSION: Normal examination for a patient of this age. Sawyer Wang MD PE at Discharge GENERAL: This is a well-nourished, well-developed patient, in no apparent distress. CARDIOVASCULAR: Regular rate and regular rhythm without murmurs, gallops, or rubs. RESPIRATORY: Clear to auscultation. Breath sounds equal bilaterally. No wheezes , rales, or rhonchi. GASTROINTESTINAL: Abdomen soft, non-tender, nondistended. Normal, active bowel sounds MUSCULOSKELETAL: some tenderness over the left shoulder with decrease in ROM. NEURO: Alert & Oriented x4 to person, place, time, situation. Moves all ext x4 Hospital Course - suicidal thoughts- on Gomez act- psych consult appreciated and plan for dc to psych. -hyponatremia- likely due to alcohol abuse- improved. -hypocalcemia; replaced- -diabetes mellitus; accu-check with SSI -hypertension; resume BP meds upon discharge. -COPD with no exacerbation; albuterol as needed. -DVT prophylaxis with SCD's Pt Condition on Discharge: Fair Discharge Disposition: Disc to Psych Care Fac Discharge Time: <= 30 minutes Discharge Instructions DIET: Follow Instructions for: Heart Healthy Diet, Diabetic Diet Activities you can perform: Regular-No Restrictions Follow up Referrals: PCP Follow-up Psychiatry Adult New Medications: Multiple Vitamin (Thera/Beta-Carotene) 1 Tab Tab 1 TAB PO DAILY vitamin Days 30 Ref 0 TAB Thiamine HCl (Gnp Vitamin B-1) 100 Mg Tab 100 MG PO DAILY vitamin Days 30 Ref 0 TAB Continued Medications: Albuterol 8.5 GM Inh (Proair Hfa 8.5 GM Inh) 90 Mcg/Act Aer 2 PUFF INH Q4-6H 108 mcg/actuation PRN SHORTNESS OF BREATH #1 Ref 0 INHALER Alprazolam (Alprazolam) 0.5 Mg Tab 0.5 MG PO Q8H PRN ANXIETY Ref 0 TAB Atorvastatin (Atorvastatin) 20 Mg Tab 20 MG PO HS Cholesterol Management #30 Ref 0 TAB Clonidine (Clonidine) 0.1 Mg Tab 0.1 MG PO BID Blood Pressure Management #60 Ref 0 TAB Hydrocodone-Acetaminophen (Hydrocodone-Acetaminophen) 10-325 mg Tab 1 TAB PO Q6H PRN PAIN Ref 0 TAB Lisinopril (Lisinopril) 20 Mg Tab 20 MG PO DAILY #30 Ref 0 TAB Metformin (Metformin) 500 Mg Tab 500 MG PO TID With meals Blood Sugar Management #60 Ref 0 TAB Discontinued Medications: Glipizide (Glipizide) 5 Mg Tab 2.5 MG PO DAILY Take 30 minutes before a meal Blood Sugar Management #60 Ref 0 TAB Adriane Bal MD May 15, 2017 10:47
[2017-05-15] MEDS: SODIUM CHLOR 0.9% 1000 ML INJ 1,000 ML IV SCH (11:29)
--- NOTE | 2017-05-15 12:32 | MB ---
cc: JEANNETTE BROUSSARD DATE OF CONSULTATION: 05/15/2017. REASON FOR CONSULTATION: Left shoulder pain. HISTORY OF PRESENT ILLNESS: The patient is a 62-year-old man who is currently Gomez Acted in the hospital. He has a history of hypertension, diabetes, dyslipidemia and COPD. The patient was admitted with significant diagnosis of depression. The patient tells me that he has been having problems with the left shoulder for about six months. He had no particular injury that started this. He describes pain posteriorly in the shoulder that then radiates down the arm towards the long finger. The patient has been treated by Dr. Guerrero with pain medicines. The patient has had x-rays and MRI done at the [facility]. He says does not know the results of the MRI. He was never told what the results of the MRI showed. The patient says he wants to see another pain management group but does not have enough money to pay for the records from Dr. Guerrero's office. The patient denies any new injury currently. PAST MEDICAL HISTORY: His medical history is as above. PAST SURGICAL HISTORY: None. MEDICATIONS: See the chart. ALLERGIES: NO KNOWN DRUG ALLERGIES. REVIEW OF SYSTEMS: A twelve-point review of systems is negative except as noted in the history of present illness. FAMILY HISTORY: Noncontributory. PHYSICAL EXAMINATION: VITAL SIGNS: The patient's temperature is 97.4, pulse is 69, respirations 20, blood pressure is 157/86. GENERAL: The patient is awake, alert and oriented times three. He has normal insight and seems to have normal affect at this time but seems very anxious, especially as I started asking him about the shoulder and his history with Dr. Guerrero and the management of this. HEAD, EYES, EARS, NOSE, THROAT: The patient's head is atraumatic. Extraocular muscles intact. Oropharynx is moist. NECK: The neck is nontender. HEART: Regular rate and rhythm LUNGS: Clear to auscultation bilaterally. ABDOMEN: The abdomen is soft, nontender and nondistended. EXTREMITIES: Examination of the left shoulder shows the skin is intact. He does have some atrophy around the shoulder girdle. He has limited range of motion with active forward flexion and abduction to about 80 degrees and it then becomes rather painful. Passive forward flexion to 140 degrees but does have pain associated with this. He has weakness about the left shoulder, which is generalized due to pain versus a focal weakness. The patient does move the fingers well and in the left upper extremity. He has brisk capillary refill about the fingertips. LABORATORY STUDIES: White cell count of 7.5, hematocrit 36.0, sodium is 123, glucose 137. IMAGING STUDIES: Xrays were reviewed of the left shoulder in multiple views and I reviewed the report as well, shows no fractures or dislocations. The patient has just some minimal degenerative changes about the shoulder. IMPRESSION: 1. Left shoulder pain, approximately six months being treated by Dr. Guerrero, possible cervical component given his description. 2. Left shoulder possible rotator cuff impingement versus tear. DECISION-MAKING: We discussed his diagnosis in detail. I would recommend for the patient to obtain the images if possible or at least the MRI report so that we can review this with him. At this point, I would recommend nonoperative management for this condition. The patient may benefit potentially from physical therapy or steroid injections potentially. This can all be further discussed in an outpatient setting as no further impatient management for this shoulder condition is required at this time. Thank you for the consultation. MD VICENTE Alejo/YULIYA /11:21 AM /12:18 PM
[2017-05-15] MEDS: traZODone HCL 100 MG TAB PO SCH ×2 (20:21→21:17)
[2017-05-15] MEDS: ATORVASTATIN 20 MG TAB PO SCH (20:21)
[2017-05-16] MEDS: ACETAMINOPHEN/HYDROcodone 325 MG/5 MG TAB PO PRN ×2 (03:10→11:57)
[2017-05-16 03:59] VITALS: BP 144/63; PULSE 62; RESP 18; TEMP 97.4; O2SAT 97
[2017-05-16] MEDS: INSULIN ASPART SUPPLEMENTAL SCALE SQ SCH ×2 (06:04→12:48)
[2017-05-16 08:00] VITALS: BP 149/80; PULSE 70; RESP 16; TEMP 97.7; O2SAT 96
--- NOTE | 2017-05-16 09:10 | HHI.PR ---
Subjective Remarks resting comfortably with no distress. has some pain to the left shoulder. Objective Vitals Vital Signs Date Time Temp Pulse Resp B/P Pulse Ox O2 Delivery O2 Flow Rate FiO2 05/16/17 03:59 97.4 62 18 144/63 97 05/15/17 22:00 97.2 82 20 137/74 97 05/15/17 20:30 82 05/15/17 19:30 98.2 74 18 149/66 98 05/15/17 16:00 98.4 73 20 144/67 99 05/15/17 12:00 97.6 62 20 161/79 98 05/15/17 10:09 64 I/O 05/15/17 05/15/17 05/15/17 05/16/17 05/16/17 05/16/17 06:59 14:59 22:59 06:59 14:59 22:59 Intake Total 439 ml 720 ml Output Total 675 ml 380 ml Balance -236 ml 720 ml -380 ml Intake Oral 720 ml IV Total 439 ml Output Urine Total 675 ml 380 ml # Voids 3 6 3 4 # Bowel Movements 0 1 Result Diagram: 05/13/17 1151 05/15/17 0741 Imaging Last Impressions Shoulder X-Ray 05/14/17 0000 Signed Impressions: Service Date/Time: Sunday, May 14, 2017 10:40 - CONCLUSION: No acute disease or significant arthropathy. Gabriel Mckeon MD Chest X-Ray 05/13/17 0000 Signed Impressions: Service Date/Time: May 13:45 - CONCLUSION: Normal examination for a patient of this age. Sawyer Wang MD Objective Remarks GENERAL: This is a well-nourished, well-developed patient, in no apparent distress. CARDIOVASCULAR: Regular rate and regular rhythm without murmurs, gallops, or rubs. RESPIRATORY: Clear to auscultation. Breath sounds equal bilaterally. No wheezes , rales, or rhonchi. GASTROINTESTINAL: Abdomen soft, non-tender, nondistended. Normal, active bowel sounds MUSCULOSKELETAL: some tenderness over the left shoulder with decrease in ROM. NEURO: Alert & Oriented x4 to person, place, time, situation. Moves all ext x4 Procedures none Medications and IVs Current Medications Sodium Chloride (NS Flush) 2 ml UNSCH PRN IV FLUSH FLUSH AFTER USING IV ACCESS ; Start 05/13/17 at 12:00 Dextrose (D50w (Vial) Inj) 50 ml UNSCH PRN IV HYPOGLYCEMIA-SEE COMMENTS; Start 05/13/17 at 13:30 Glucagon (Glucagon Inj) 1 mg UNSCH PRN OTHER HYPOGLYCEMIA-SEE COMMENTS; Start 05/13/17 at 13:30 Insulin Aspart (NovoLOG SUPPLEMENTAL SCALE) 1 ACHS SLIDING SCALE SQ Last administered on 05/15/17 20:37; Start 05/13/17 at 16:00 Flumazenil (Romazicon Inj) 0.2 mg Q1M PRN IV PUSH SEE LABEL COMMENTS; Start 07/20 at 13:45 Lorazepam (Ativan) 1 mg Q4H PRN PO CIWA 8 - 10; Start 05/13/17 at 13:45 Lorazepam (Ativan Inj) 1 mg Q4H PRN IV PUSH CIWA 8 - 10; Start 05/13/17 at 13: 45 Lorazepam (Ativan) 2 mg Q2H PRN PO CIWA 11-14; Start 05/13/17 at 13:45 Lorazepam (Ativan Inj) 2 mg Q2H PRN IV PUSH CIWA 11-14; Start 05/13/17 at 13:45 Lorazepam (Ativan Inj) 2 mg Q1H PRN IV PUSH CIWA 15-20; Start 05/13/17 at 13:45 Lorazepam (Ativan Inj) 2 mg Q15M PRN IV PUSH CIWA > 20; Start 05/13/17 at 13:45 Thiamine HCl (Vitamin B1) 100 mg DAILY PO Last administered on 05/15/17 08:15 ; Start 05/13/17 at 15:00 Multivitamins (Theragran) 1 tab DAILY PO Last administered on 05/15/17 08:15; Start 05/14/17 at 09:00 Albuterol Sulfate (Proair Hfa Inh) 2 puff Q6HR PRN INH SHORTNESS OF BREATH; Start 05/13/17 at 18:00 Alprazolam (Xanax) 0.5 mg Q8H PRN PO ANXIETY Last administered on 05/15/17 23: 14; Start 05/13/17 at 13:45 Atorvastatin Calcium 20 mg 20 mg HS PO Last administered on 05/15/17 20:21; Start 05/13/17 at 21:00 Sodium Chloride (NS 1000 ml Inj) 1,000 ml @ 50 mls/hr Q20H IV Last administered on 05/14/17 00:00; Start 05/13/17 at 14:00 Calcium Gluconate 2 gm 2 gm ONCE ONCE IV PUSH ; Start 05/14/17 at 02:45; Stop 05/14/17 at 02:46; Status UNV Calcium Gluconate/ Sodium Chloride (Calcium Gluconate Inj/NS Inj) 120 ml @ 120 mls/hr ONCE ONCE IV Last administered on 05/14/17 03:14; Start 05/14/17 at 02 :45; Stop 05/14/17 at 03:44; Status DC Trazodone HCl (Desyrel) 100 mg HS PO Last administered on 05/15/17 20:21; Start 05/14/17 at 21:00 Trazodone HCl (Desyrel) 100 mg HS PO ; Start 05/14/17 at 21:00 Acetaminophen/ Hydrocodone Bitart ([place] 5-325 Mg) 1 tab Q4H PRN PO PAIN 1-10 Last administered on 05/16/17 03:10; Start 05/14/17 at 20:00 A/P Assessment and Plan A/P - suicidal thoughts- on Gomez act- psych consult appreciated and plan for dc to psych. -hyponatremia- likely due to alcohol abuse- improved. -hypocalcemia; replaced- -left shoulder pain with decrease in ROM; XR of the left shoulder with no fracture- ortho consulted and recommended outpatient follow-up. -diabetes mellitus; accu-check with SSI -hypertension; hold BP meds for now- -COPD with no exacerbation; albuterol as needed. -DVT prophylaxis with SCD's Discharge Planning dc to psych today. see med list. f/u; pcp and ortho. d/w the patient and Adriane Pabon MD May 16, 2017 09:10
--- NOTE | 2017-05-16 09:11 | HHI.DS ---
Discharge Summary Admission Date May 13, 2017 at 13:23 Discharge Date: May 16, 2017 Admitting Diagnosis Hyponatremia/Suicidal (1) Hyponatremia ICD Code: E87.1 Diagnosis: Principal (2) Suicidal thoughts ICD Code: R45.851 Diagnosis: Principal Procedures none Brief History - From Admission patient is a 62 y/o male with history of hypertension,diabetes,dyslipidemia and COPD who was brought to ER under gomez act - with suicidal thoughts.he says that he's depressed, tired and start to drink a bit recently. he says that his last drink was last night. he's complaining of some lower extremity muscle spasm and some nausea. he says that he had a recent fall with no head trauma or loss of consciousness.he denies any abdominal pain, chest pain and is in no respiratory distress. CBC/BMP: 05/13/17 1151 05/15/17 0741 Significant Findings Laboratory Tests Test 05/13/17 05/13/17 05/14/17 05/14/17 11:51 19:37 01:15 14:10 Red Blood Count 3.77 MIL/MM3 (4.50-5.90) Hemoglobin 12.7 GM/DL (13.0-17.0) Hematocrit 36.0 % (39.0-51.0) Monocytes (%) (Auto) 9.0 % (0.0-8.0) Sodium Level 123 MEQ/L 124 MEQ/L 130 MEQ/L 134 MEQ/L (136-145) (136-145) (136-145) (136-145) Chloride Level 89 MEQ/L 95 MEQ/L (98-107) (98-107) Carbon Dioxide Level 20.7 MEQ/L (21.0-32.0) Blood Urea Nitrogen 5 MG/DL (7-18) Estimat Glomerular Filtration 74 ML/MIN (>89) 66 ML/MIN (>89) 67 ML/MIN (>89) Rate Random Glucose 137 MG/DL 108 MG/DL 142 MG/DL (74-106) (74-106) (74-106) Calcium Level 7.1 MG/DL 6.4 MG/DL 7.6 MG/DL (8.5-10.1) (8.5-10.1) (8.5-10.1) Protein Corrected Calcium 7.5 MG/DL 7.2 MG/DL (8.5-10.1) (8.5-10.1) Aspartate Amino Transf 84 U/L (15-37) (AST/SGOT) Total Protein 5.5 GM/DL (6.4-8.2) Test 05/15/17 07:41 Random Glucose 110 MG/DL (74-106) Calcium Level 7.7 MG/DL (8.5-10.1) Imaging Last Impressions Shoulder X-Ray 05/14/17 0000 Signed Impressions: Service Date/Time: Sunday, May 14, 2017 10:40 - CONCLUSION: No acute disease or significant arthropathy. Gabriel Mckeon MD Chest X-Ray 05/13/17 0000 Signed Impressions: Service Date/Time: May 13:45 - CONCLUSION: Normal examination for a patient of this age. Sawyer Wang MD PE at Discharge GENERAL: This is a well-nourished, well-developed patient, in no apparent distress. CARDIOVASCULAR: Regular rate and regular rhythm without murmurs, gallops, or rubs. RESPIRATORY: Clear to auscultation. Breath sounds equal bilaterally. No wheezes , rales, or rhonchi. GASTROINTESTINAL: Abdomen soft, non-tender, nondistended. Normal, active bowel sounds MUSCULOSKELETAL: some tenderness over the left shoulder with decrease in ROM. NEURO: Alert & Oriented x4 to person, place, time, situation. Moves all ext x4 Hospital Course - suicidal thoughts- on Gomez act- psych consult appreciated and plan for dc to psych. -hyponatremia- likely due to alcohol abuse- improved. -hypocalcemia; replaced- -left shoulder pain with decrease in ROM; XR of the left shoulder with no fracture- ortho consulted and recommended outpatient follow-up. -diabetes mellitus; accu-check with SSI -hypertension; hold BP meds for now- -COPD with no exacerbation; albuterol as needed. -DVT prophylaxis with SCD's Pt Condition on Discharge: Fair Discharge Disposition: Disc to Psych Care Fac Discharge Time: <= 30 minutes Discharge Instructions DIET: Follow Instructions for: Heart Healthy Diet, Diabetic Diet Activities you can perform: Regular-No Restrictions Follow up Referrals: Orthopedics PCP Follow-up Psychiatry Adult New Medications: Multiple Vitamin (Thera/Beta-Carotene) 1 Tab Tab 1 TAB PO DAILY vitamin Days 30 Ref 0 TAB Thiamine HCl (Gnp Vitamin B-1) 100 Mg Tab 100 MG PO DAILY vitamin Days 30 Ref 0 TAB Continued Medications: Albuterol 8.5 GM Inh (Proair Hfa 8.5 GM Inh) 90 Mcg/Act Aer 2 PUFF INH Q4-6H 108 mcg/actuation PRN SHORTNESS OF BREATH #1 Ref 0 INHALER Alprazolam (Alprazolam) 0.5 Mg Tab 0.5 MG PO Q8H PRN ANXIETY Ref 0 TAB Atorvastatin (Atorvastatin) 20 Mg Tab 20 MG PO HS Cholesterol Management #30 Ref 0 TAB Clonidine (Clonidine) 0.1 Mg Tab 0.1 MG PO BID Blood Pressure Management #60 Ref 0 TAB Hydrocodone-Acetaminophen (Hydrocodone-Acetaminophen) 10-325 mg Tab 1 TAB PO Q6H PRN PAIN Ref 0 TAB Lisinopril (Lisinopril) 20 Mg Tab 20 MG PO DAILY #30 Ref 0 TAB Metformin (Metformin) 500 Mg Tab 500 MG PO TID With meals Blood Sugar Management #60 Ref 0 TAB Discontinued Medications: Glipizide (Glipizide) 5 Mg Tab 2.5 MG PO DAILY Take 30 minutes before a meal Blood Sugar Management #60 Ref 0 TAB Adriane Bal MD May 16, 2017 09:11
[2017-05-16] MEDS: MULTIVITAMIN TAB PO SCH (09:17)
[2017-05-16] MEDS: THIAMINE HCL 100 MG TAB PO SCH (09:17)
[2017-05-16] MEDS: ALPRAZolam 0.5 MG TAB PO PRN (09:17)
[2017-05-16] MEDS: SODIUM CHLOR 0.9% 1000 ML INJ 1,000 ML IV SCH (09:20)
[2017-05-16 12:00] VITALS: BP 151/81; PULSE 83; RESP 16; TEMP 97.9; O2SAT 97
== END 2017-05-16 13:57 | DRG 641 ==
LOC: NEPD 11:31 → NEDA 13:23 → N05A 16:09
PROVIDERS: ADMIT Internal Medicine; ATTEND Internal Medicine
DX: E87.1 Hypo-osmolality and hyponatremia (principal); R45.851 Suicidal ideations; E11.8 Type 2 diabetes mellitus with unspecified complications; E78.5 Hyperlipidemia, unspecified; D64.9 Anemia, unspecified; Z79.4 Long term (current) use of insulin; E83.51 Hypocalcemia; F10.10 Alcohol abuse, uncomplicated; F31.9 Bipolar disorder, unspecified; I10 Essential (primary) hypertension; J44.9 Chronic obstructive pulmonary disease, unspecified; G89.29 Other chronic pain; M25.512 Pain in left shoulder; F17.210 Nicotine dependence, cigarettes, uncomplicated
CPT/HCPCS: 71010; 73030; 80048; 80053; 81001; 82948; 84155; 84295; 85025; 93005; J0610; J1815; J7030

== ENCOUNTER 2017-05-16 14:38 | Inpatient (IN) | payer OTHER, MEDICARE ==
[~2017-05-16] VITALS: Ht 182.9 cm; Wt 91.2 kg
[2017-05-16 14:00] VITALS: BP 147/87; PULSE 81; RESP 18; TEMP 98.8; O2SAT 97
[~2017-05-16 14:38] MED LIST changes: +ALBUAER3 INH; +ALPR0.5T3 PO; +ATOR20TA15 PO; -CEPH500C3 PO; -CLON-352 PO; +CLON0.1T PO; -DOXY100T PO; -GABA400C5 PO; -GLUCTAB PO; +GNP100TA3 PO; +HYDR-3583 PO; -LISI-363 PO; +LISI-515 PO; -LORA0.5T PO; -LORTA5 PO; +METF500T PO; -NEUR400C PO; +THERTAB15 PO
[2017-05-16] MEDS ORDERED: MAGNESIUM HYDROXIDE SUSP 30 ML CUP PO PRN (15:15)
[2017-05-16] MEDS ORDERED: ALUMINUM/MAGNESIUM/SIMETH 30 ML CUP PO PRN (15:15)
[2017-05-16] MEDS ORDERED: LORazepam 1 MG TAB PO PRN (15:15)
[2017-05-16] MEDS ORDERED: ALPRAZolam 0.5 MG TAB PO PRN (15:15)
[2017-05-16] MEDS ORDERED: LORazepam 2 MG/ML VIAL IM PRN ×2 (15:15)
[2017-05-16] MEDS ORDERED: LORazepam 0.5 MG TAB PO PRN (15:15)
[2017-05-16] MEDS: NICOTINE 21 MG/24 HR PATCH T-DERMAL SCH (16:00)
[2017-05-16] MEDS: LISINOPRIL 20 MG TAB PO SCH (16:38)
[2017-05-16] MEDS: metFORMIN HCL 500 MG TAB PO SCH (17:43)
[2017-05-16] MEDS: REMOVE OLD NICODERM (NICOTINE) PATCH T-DERMAL SCH (21:00)
[2017-05-16] MEDS ORDERED: traZODone HCL 100 MG TAB PO SCH (21:00)
[2017-05-16] MEDS: ATORVASTATIN 20 MG TAB PO SCH (21:38)
[2017-05-16] MEDS: cloNIDine HCL 0.1 MG TAB PO SCH (21:38)
[2017-05-16] MEDS: ACETAMINOPHEN 325 MG TAB PO PRN (21:43)
[2017-05-17 06:00] VITALS: BP 142/63; PULSE 74; RESP 18; TEMP 97.6; O2SAT 97
[2017-05-17] MEDS ORDERED: REMOVE OLD LIDOCAINE PATCH T-DERMAL SCH (08:00)
[2017-05-17] MEDS: metFORMIN HCL 500 MG TAB PO SCH ×3 (08:28→17:29)
[2017-05-17] MEDS: cloNIDine HCL 0.1 MG TAB PO SCH ×2 (08:28→20:58)
[2017-05-17] MEDS: ACETAMINOPHEN 325 MG TAB PO PRN ×2 (08:32→12:39)
[2017-05-17] MEDS: LISINOPRIL 20 MG TAB PO SCH (08:34)
[2017-05-17] MEDS: NICOTINE 21 MG/24 HR PATCH T-DERMAL SCH (08:34)
[2017-05-17 12:35] LABS: ANION GAP 6 MEQ/L (5-15); BLOOD UREA NITROGEN 14 MG/DL (7-18); CHLORIDE 105 MEQ/L (98-107); GLOMERULAR FILTRATION RATE 90 ML/MIN (>89); POTASSIUM 4.1 MEQ/L (3.5-5.1); SODIUM (NA) 137 MEQ/L (136-145)
[2017-05-17 12:39] LABS: LDL CHOLESTEROL 37 MG/DL (0-99)
--- NOTE | 2017-05-17 13:54 | PD.TTN ---
Present for Treatment Team Treatment Team Staff: Provider (Dr. Sosa), Nurse (Sina), Psych Therapist ( EULOGIO Valdes), Occupational Therapist (Alissa) Patient Problems 1. Discharge planning 2. Medication compliance 3. Knowledge deficit 4. Lack of coping skills Progress Toward Goals Provider Input: Dr. Sosa requested an update regarding patient's mental status, medication compliance, and plan for discharge. Nurse Input: Sina reported the patient remains vague regarding his need for housing. Per Sina the patient is an alcoholic and self medicates with alcohol. Psych Therapist Input: Counselor reported that I will speak to patient today to assess his needs. Occupational Therapist Input: Patient is not participating in groups. Documentation Scribe: Eulogio Valdes Date Resolved: May 17, 2017 Abigail Christina May 17, 2017 13:53
[2017-05-17] MEDS: MULTIVITAMIN TAB PO SCH (14:15)
[2017-05-17] MEDS ORDERED: ACETAMINOPHEN 325 MG TAB PO PRN (14:15)
[2017-05-17] MEDS ORDERED: MAGNESIUM HYDROXIDE SUSP 30 ML CUP PO PRN (14:15)
[2017-05-17] MEDS ORDERED: NICOTINE 21 MG/24 HR PATCH T-DERMAL SCH (14:15)
[2017-05-17] MEDS ORDERED: ALUMINUM/MAGNESIUM/SIMETH 30 ML CUP PO PRN (14:15)
--- NOTE | 2017-05-17 14:45 | HHI.HP ---
Provisional Diagnosis Admission Date May 16, 2017 at 14:38 [place]. Schizoaffective disorder depressive type f 25.1, history of alcohol abuse Z 87.898 Certification of Person's Competence To Provide Express and Informed Consent I have personally examined Amor Flores , a person being served at [facility] on, May 17, 2017 14:23. Express and informed consent means consent voluntarily given in writing, by a competent person, after sufficient explanation and disclosure of the subject matter involved to enable the person to make a knowing and willful decision without any element of force, fraud, deceit, duress, or other form of constraint or coercion. This person is 18 years of age or older, is not now known to be incompetent to consent to treatment with a guardian advocate, and does not have a health care surrogate or proxy currently making medical treatment decisions. I have found this person to be one of the following: [] Competent to provide express and informed consent, as defined above, for voluntary admission to this facility and is competent to provide express and informed consent for treatment. He/she has the consistent capacity to make well reasoned, willful, and knowing decisions concerning his or her medical or mental health treatment. The person fully and consistently understands the purpose of the admission for examination/placement and is fully capable of personally exercising all rights assured [place] Incompetent to provide express and informed consent to voluntary admission, and this is incompetent to provide express and informed consent to treatment. The person must be transferred to involuntary status and a petition for a guardian advocate filed with the Circuit Court. [xxx] Refusing to provide express and informed consent to voluntary admission but is competent to provide express and informed consent for treatment. The person must be discharged or transferred to involuntary status. Form shall be completed within 24 hours of a person's arrival at the receiving facility and filed in the clinical record of each person: 1. Admitted on a voluntary basis 2. Permitted to provide express and informed consent to his/her own treatment 3. Allowed to transfer from involuntary to voluntary status 4. Prior to permitting a person to consent to his or her own treatment after having been previously found incompetent to consent to treatment. History of Present Illness Capacity: Lacks Capacity (patient less capacity to sign for admission, patient has capacity to sign for medications) HPI Patient is a 62-year-old white male who initially comes to the emergency department under Gomez act by the [facility] Department dated 05/13/17 at 11:25 AM that document reviewed essentially is stating upon officers arrival Amor Griffiths explained to officers that he wanted to take his own life. Mr. Griffiths stated his was not worth it anymore and he wished to and his life. Mr. Bradshaw is prescribed medications for bipolar and schizoaffective however he has not been taking the medication Amor Griffiths stated to officers he had been drinking earlier in the day patient was initially admitted to the medical unit 2 05/15/17 under visit [id number]. It appears there is no urine toxicology her blood alcohol level drawn. This consultation by Dr. Hughes recommended transfer to the psychiatric unit when medically cleared. Of interest patient has records going back a number of years with us the laboratories have been reviewed by me since July 2008 patient said 7 blood alcohol levels drawn that range from 229 to 477. Patient also had orthopedic consultation on that visit. Recommendation was for him to follow-up with shoulder problems as an outpatient. At the present time patient sitting quietly in his room with nurse Sina. Says he is at the end of his rope life is not worth living, he has no family, no future, though acknowledges also his last drink was less than a week ago. Had been drinking daily for a few months prior to that. Acknowledged a.m. drinking, so low drinking, blacking out, passing out, he does have a history of detox though none more recent than 10 years ago at [facility]. He states his had at least 3 of 4 DUIs with incarcerations associated with them. He does acknowledge past psychiatric history saying he has been a client at [facility] but not since around 10 years ago. He states he has been kicked out of his apartment. At the present time he is homeless. He acknowledges continued suicidal thoughts, he acknowledges vague visual perceptual abnormalities of lites and perhaps birds or insects, he also acknowledges vague auditory hallucinations. We did discuss medications. Patient states she has been on multiple medications in the past. He states he was on Seroquel in the past was involved with a class action suit against that drug was awarded some type of financial settlement. We will start the patient on Remeron 15 mg at at bedtime he does complain of some insomnia. We will add Respinol 1 mg a.m. in the morning since he states he did do fairly well on that in the past. Will refrain from any benzodiazepines or opiates at the present time considering his significant addictions history. Patient did state he was a polysubstance abuser 15-20+ years ago though denying intravenous drug use. He states she will would like to in some type of her program. [facility] did [facility] He states he might be interested in that. Thus will be admitted at this time I feel he meets criteria for involuntary psychiatric hospitalization I will do first opinion requests a second opinion though the hospitalist continue the consultation willingness also Review of Systems Constitutional: DENIES: Diaphoretic episodes, Fatigue, Fever, Weight gain, Weight loss, Chills, Dizziness, Change in appetite, Night Sweats Endocrine: DENIES: Heat/cold intolerance, Polydipsia, Polyuria, Polyphagia Eyes: DENIES: Blurred vision, Diplopia, Eye inflammation, Eye pain, Vision loss , Photosensitivity, Double Vision Ears, nose, mouth, throat: DENIES: Tinnitus, Hearing loss, Vertigo, Nasal discharge, Oral lesions, Throat pain, Hoarseness, Ear Pain, Running Nose, Epistaxis, Sinus Pain, Toothache, Odynophagia Respiratory: DENIES: Apneas, Cough, Snoring, Wheezing, Hemoptysis, Sputum production, Shortness of breath Cardiovascular: DENIES: Chest pain, Palpitations, Syncope, Dyspnea on Exertion , PND, Lower Extremity Edema, Orthopnea, Claudication Genitourinary: DENIES: Sexual dysfunction, Urinary frequency, Urinary incontinence, Urgency, Hematuria, Dysuria, Nocturia, Penile Discharge, Testicular Pain, Testicular Swelling Musculoskeletal: COMPLAINS OF: Joint pain, DENIES: Muscle aches, Stiffness, Joint Swelling, Back pain, Neck pain Integumentary: DENIES: Abnormal pigmentation, Nail changes, Pruritus, Rash Hematologic/lymphatic: DENIES: Bruising, Lymphadenopathy Neurologic: DENIES: Abnormal gait, Headache, Localized weakness, Paresthesias, Seizures, Speech Problems, Tremor, Poor Balance Psychiatric: COMPLAINS OF: Depression, Hallucinations, Suicidal Ideation Past Psych History Psychological trauma history Patient denies at this time Violence risk - others (6 mos) Low Violence risk - self (6 mos) Patient continues with suicidal ideation Substance Abuse History Drugs/Alcohol past 12 months Patient active alcohol abuser Past Family Social History Coded Allergies: No Known Allergies (Verified , 05/13/17) Past Medical History Patient complains of chronic left shoulder pain Active Scripts Multiple Vitamin (Thera/Beta-Carotene)1 Tab Tab1 Tab PO DAILY 30 Days Ref 0 Prov:Adriane Bal MD 05/15/17 Thiamine HCl (Gnp Vitamin B-1)100 Mg [id number] Mg PO DAILY 30 Days Ref 0 Prov:Adriane Bal MD 05/15/17 Reported Medications Lisinopril 20 Mg Tab20 Mg PO DAILY #30 TAB Ref 0 05/13/17 Atorvastatin 20 Mg Tab20 Mg PO HS #30 TAB Ref 0 05/13/17 Clonidine 0.1 Mg Tab0.1 Mg PO BID #60 TAB Ref 0 05/13/17 Albuterol 8.5 GM Inh (Proair Hfa 8.5 GM Inh)90 Mcg/Act Aer2 Puff INH Q4-6H PRN ( SHORTNESS OF BREATH) #1 INHALER Ref 0 108 mcg/actuation 05/13/17 Metformin 500 Mg [id number] Mg PO TID #60 TAB Ref 0 With meals 05/13/17 Discontinued Reported Medications Hydrocodone-Acetaminophen 10-325 mg Tab1 Tab PO Q6H PRN (PAIN) Ref 0 05/13/17 Alprazolam 0.5 Mg Tab0.5 Mg PO Q8H PRN (ANXIETY) Ref 0 05/13/17 Glipizide 5 Mg Tab2.5 Mg PO DAILY #60 TAB Ref 0 Take 30 minutes before a meal 05/13/17 Current Medications Medications (Trade) Dose Ordered Sig/Lillian Route Start Time Stop Time Status Last Admin (Ventolin Hfa Inh) 2 puff Q8HR PRN INH 05/16/17 15:30 (Lipitor) 20 mg HS PO 05/16/17 21:00 05/16/17 21:38 (Catapres) 0.1 mg BID PO 05/16/17 21:00 05/17/17 08:28 (Prinivil) 20 mg DAILY PO 05/16/17 15:30 05/17/17 08:34 (Glucophage) 500 mg TID PO 05/16/17 18:00 05/17/17 12:30 (Tylenol) 650 mg Q4H PRN PO 05/16/17 15:15 05/17/17 12:39 (Milk Of Magnesia Liq) 30 ml DAILY PRN PO 05/16/17 15:15 (Mag-Al Plus Susp Liq) 30 ml Q6H PRN PO 05/16/17 15:15 (Habitrol 21 Mg Patch.24 Hr) 1 patch DAILY T-DERMAL 05/16/17 16:00 05/17/17 08:34 Miscellaneous Information 1 HS T-DERMAL 05/16/17 21:00 (Remeron) 15 mg HS PO 05/17/17 21:00 (risperDAL) 1 mg DAILY PO 05/17/17 15:00 (Benadryl) 50 mg HS PRN PO 05/17/17 14:15 (Tylenol) 650 mg Q4H PRN PO 05/17/17 14:15 (Milk Of Magnesia Liq) 30 ml DAILY PRN PO 05/17/17 14:15 UNV (Mag-Al Plus Susp Liq) 30 ml Q6H PRN PO 05/17/17 14:15 (Habitrol 21 Mg Patch.24 Hr) 1 patch DAILY T-DERMAL 05/17/17 14:15 UNV (Atarax) 50 mg Q6H PRN PO 05/17/17 14:15 (Theragran) 1 tab DAILY PO 05/17/17 14:15 UNV (Vitamin B1) 100 mg DAILY PO 05/17/17 14:15 UNV Family History Patient vague about past family history Social History Patient homeless, single, no children. Is essentially from the rest of his family for many years Patient's Strengths (min. 2) Patient verbal able to access healthcare Physical Exam Patient medically cleared through previous admission patient sitting quietly on his bed nasal with nurse Sina present. Is in no acute distress though he frequently is rubbing his left shoulder as if it's uncomfortable. He is in no respiratory distress, no complaints of abdominal pain. Except for his left shoulder patient moving all 4 extremities without difficulty there are no abnormal motor movements noted Vital Signs Vital Signs Date Time Temp Pulse Resp B/P Pulse Ox O2 Delivery O2 Flow Rate FiO2 05/17/17 06:00 97.6 74 18 142/63 97 I/O 05/16/17 05/16/17 05/17/17 08:00 16:00 00:00 Intake Total 240 ml Balance 240 ml Mental Status Examination Alert white male neatly trimmed white. And weight here guarded somewhat manipulative and entitled in his attitude with good eye contact Appearance Fairly clean and neat Speech: Unremarkable Orientation: x3 Memory: Unremarkable Thought Process: Linear Thought Content: Unremarkable, Ideas of Reference Language Fair Fund of Knowledge Fair Hallucination Type: Auditory, Visual Attention and Concentration: Other (fair) Suicidal Ideation: Yes Previous Suicide Attempts: Yes Homicidal Ideation: No Previous Homicide Attempts: No Insight: Poor Judgment: Poor Affect: Other (decreased range and intensity) Mood: Euthymic (to somewhat restricted and dysphoric) Motor Activity: Normal gait Assessment & Plan Problem List: (1) Schizoaffective disorder, depressive type ICD Code: F25.1 (2) History of alcohol abuse ICD Code: Z87.898 Assessment & Plan Estimated LOS: 5-7 days this time patient meets criteria for involuntary psychiatric hospitalization I'll do first opinion request second opinion. I feel he does have capacity to sign for his medications. We will hospitalist continue their consultation. We'll start him on Remeron 15 mg at at bedtime Resporal 1 mg in the morning. Will refrain from opiates and benzodiazepines at the present time we'll look towards possible placement in a safe/sober house such as [facility] Discharge Planning To be determined Request Surrog/Guard Advoc?: No Johnnie Sosa MD May 17, 2017 14:45
[2017-05-17] MEDS: THIAMINE HCL 100 MG TAB PO SCH (15:41)
[2017-05-17] MEDS: risperiDONE 1 MG TAB PO SCH (15:41)
[2017-05-17 16:45] LABS: HEMOGLOBIN A1a 1.3 %; HEMOGLOBIN A1b 1.9 %; HEMOGLOBIN LA1C 2.6 %; HEMOGLOBIN P3 3.9 %
--- NOTE | 2017-05-17 18:10 | PD.CONS ---
HPI Service [facility] Hospitalists Consult Requested By Psychiatric services Reason for Consult Medical management Primary Care Physician Unknown Diagnoses: (1) History of alcohol abuse (2) Schizoaffective disorder, depressive type (3) Suicidal thoughts (4) Hyponatremia (5) Chronic pain (6) HTN (hypertension) (7) Diabetes (8) Depression with suicidal ideation History of Present Illness This is a 62-year-old male with past medical history significant for hypertension, diabetes, dyslipidemia and COPD who was brought into the ED under Gomez act for suicidal ideation and was found to have hyponatremia likely due to alcohol abuse and hypocalcemia both of which resolved prior to him being admitted to the inpatient psychiatric unit. Additionally, patient had complaints of left shoulder pain and decreased range of motion x-ray does not show any evidence of fracture and or so was consulted and recommended outpatient follow-up. Hospitalist services have been consulted for medical management. Patient continues to have same complaints of left shoulder pain. He also states that he's having more whitish sputum production. He denies any increasing cough or shortness of breath. He denies any chest pain. Denies any fever or chills. Patient also complains of headache today. He denies any nausea, vomiting or abdominal pain. Review of Systems Constitutional: DENIES: Diaphoretic episodes, Fatigue, Weight gain, Chills, Dizziness Endocrine: DENIES: Heat/cold intolerance, Polydipsia, Polyuria Eyes: DENIES: Blurred vision, Diplopia, Eye inflammation, Eye pain Ears, nose, mouth, throat: DENIES: Tinnitus, Hearing loss, Nasal discharge, Oral lesions Respiratory: COMPLAINS OF: Cough, Sputum production, DENIES: Apneas Cardiovascular: DENIES: Chest pain, Palpitations Gastrointestinal: DENIES: Abdominal pain, Black stools Musculoskeletal: COMPLAINS OF: Joint pain, DENIES: Muscle aches, Stiffness, Joint Swelling Integumentary: DENIES: Abnormal pigmentation, Nail changes Hematologic/lymphatic: DENIES: Bruising, Lymphadenopathy Immunologic/allergic: DENIES: Eczema, Urticaria Neurologic: DENIES: Abnormal gait, Headache, Localized weakness, Paresthesias, Seizures Psychiatric: COMPLAINS OF: Anxiety, Confusion, Mood changes, Depression, Agitation Except as stated in HPI: all other systems reviewed are Neg Past Family Social History Allergies: Coded Allergies: No Known Allergies (Verified , 05/13/17) Past Medical History HTN DM Dyslipidemia COPD Bipolar Schizoaffective disorder Past Surgical History None Reported Medications Hydrocodone-Acetaminophen 10-325 mg Tab 1 Tab PO Q6H PRN Glipizide 5 Mg Tab 2.5 Mg PO DAILY Take 30 minutes before a meal Lisinopril 20 Mg Tab 20 Mg PO DAILY Alprazolam 0.5 Mg Tab 0.5 Mg PO Q8H PRN Atorvastatin (Atorvastatin Calcium) 20 Mg Tab 20 Mg PO HS Clonidine (Clonidine HCl) 0.1 Mg Tab 0.1 Mg PO BID Proair Hfa 8.5 GM Inh (Albuterol Sulfate) 90 Mcg/Act Aer 2 Puff INH Q4-6H PRN 108 mcg/actuation Metformin (Metformin HCl) 500 Mg Tab 500 Mg PO TID With meals Active Ordered Medications Current Medications Medications (Trade) Dose Ordered Sig/Lillian Route Start Time Stop Time Status Last Admin (Ventolin Hfa Inh) 2 puff Q8HR PRN INH 05/16/17 15:30 (Lipitor) 20 mg HS PO 05/16/17 21:00 05/16/17 21:38 (Catapres) 0.1 mg BID PO 05/16/17 21:00 05/17/17 08:28 (Prinivil) 20 mg DAILY PO 05/16/17 15:30 05/17/17 08:34 (Glucophage) 500 mg TID PO 05/16/17 18:00 05/17/17 17:29 (Habitrol 21 Mg Patch.24 Hr) 1 patch DAILY T-DERMAL 05/16/17 16:00 05/17/17 08:34 Miscellaneous Information 1 HS T-DERMAL 05/16/17 21:00 (Remeron) 15 mg HS PO 05/17/17 21:00 (risperDAL) 1 mg DAILY PO 05/17/17 15:00 05/17/17 15:41 (Benadryl) 50 mg HS PRN PO 05/17/17 14:15 (Tylenol) 650 mg Q4H PRN PO 05/17/17 14:15 (Milk Of Magnesia Liq) 30 ml DAILY PRN PO 05/17/17 14:15 (Mag-Al Plus Susp Liq) 30 ml Q6H PRN PO 05/17/17 14:15 (Atarax) 50 mg Q6H PRN PO 05/17/17 14:15 (Theragran) 1 tab DAILY PO 05/17/17 14:15 (Vitamin B1) 100 mg DAILY PO 05/17/17 14:15 05/17/17 15:41 Family History Reviewed and noncontributory Social History Patient admits to tobacco use of 1ppd. Patient reports binge drinking. He denies any illicit drug use. Physical Exam Vital Signs Vital Signs Date Time Temp Pulse Resp B/P Pulse Ox O2 Delivery O2 Flow Rate FiO2 05/17/17 06:00 97.6 74 18 142/63 97 Physical Exam GENERAL: This is a well-nourished, well-developed patient, in no apparent distress. Awake and alert. SKIN: No rashes, ecchymoses or lesions. Cool and dry. HEAD: Atraumatic. Normocephalic. No temporal or scalp tenderness. EYES: Pupils equal round and reactive. Extraocular motions intact. No scleral icterus. No injection or drainage. ENT: Nose without bleeding or purulent drainage. Throat without erythema, tonsillar hypertrophy or exudate. Uvula midline. Airway patent. Tongue is midline NECK: Trachea midline. No lymphadenopathy. Supple, nontender, no meningeal signs. CARDIOVASCULAR: Regular rate and rhythm without murmurs, gallops, or rubs. S1- S2 no S3 or S4 or thrill RESPIRATORY: Clear to auscultation. Breath sounds equal bilaterally. No wheezes , rales, or rhonchi. GASTROINTESTINAL: Abdomen soft, non-tender, nondistended. No hepato-splenomegaly , or palpable masses. No guarding. MUSCULOSKELETAL: Extremities without clubbing, cyanosis, or edema. Positive for tenderness palpation left shoulder with decreased range of motion. No calf tenderness. NEUROLOGICAL: Awake and alert. Able to move all extremities. No focal neurologic finding. Normal speech. Insight and judgment are limited Laboratory Laboratory Tests Test 05/17/17 11:14 Sodium Level 137 Potassium Level 4.1 Chloride Level 105 Carbon Dioxide Level 26.0 Anion Gap 6 Blood Urea Nitrogen 14 Creatinine 0.87 Estimat Glomerular Filtration 90 Rate Random Glucose 167 Calcium Level 7.8 Triglycerides Level 173 Cholesterol Level 104 LDL Cholesterol 37 HDL Cholesterol 32.0 Cholesterol/HDL Ratio 3.25 Result Diagram: 05/17/17 1114 Assessment and Plan Assessment and Plan 62-year-old male with past medical history significant for hypertension, diabetes, dyslipidemia and COPD who was brought into the ED under Gomez act for suicidal ideation and was found to have hyponatremia likely due to alcohol abuse and hypocalcemia both of which resolved prior to him being admitted to the inpatient psychiatric unit. Bipolar Schizoaffective disorder Suicidal ideation Management per psychiatric team COPD, not in acute exacerbation Chest x-ray 05/13/17 personally reviewed shows no evidence of acute cardiopulmonary disease DuoNeb's as needed Hyponatremia Hypocalcemia Resolved Continue to monitor as indicated Left shoulder pain X-ray left shoulder personally reviewed dated 05/14/17 shows no evidence of fracture dislocation Patient evaluated by orthopedics who recommended follow-up as an outpatient Trial of Lidoderm patch PT eval/tx HTN Continue patient's home dose of lisinopril 20 mg daily and Clonidine 0.1mg BID Monitor BP DM Continue patient on his metformin 500 mg 3 times a day Accu-Cheks Insulin sliding scale Hgb A1c pending Headache Fioricet x 1 dose Dyslipidemia Continue patient on statin therapy H/O binge alcohol use Continue multivitamin, thiamine and folic acid daily DVT prophylaxis Patient is ambulatory Discussed with patient and Dr. Pisano The exam, history, and the medical decision-making described in the above note were completed with the assistance of the mid-level provider. I reviewed and agree with the findings presented. I attest that I had a [id number] encounter with the patient on the same day, and personally performed and documented my assessment and findings in the medical record. Code Status Full code Discussed Condition With Discussed with patient RN and physician orthodontic assistant Rody Hidalgo May 17, 2017 18:10 Christopher Pisano DO May 17, 2017 18:59
[2017-05-17] MEDS ORDERED: RESP: ALBUTEROL 2.5 MG/IPRATROPIUM 0.5 MG NEB (PRN) NEB (18:15)
[2017-05-17] MEDS ORDERED: ACETAMIN 325 MG/BUTALBITAL 50 MG/CAFFEINE 40 MG TAB PO ONE (18:15)
[2017-05-17 18:28] VITALS: BP 141/69; PULSE 74; RESP 18; TEMP 98.2; O2SAT 98
[2017-05-17] MEDS ORDERED: GLUCAGON 1 MG/ML VIAL OTHER PRN (19:00)
[2017-05-17] MEDS ORDERED: DEXTROSE 50% IN WATER 50 ML VIAL(D50) IV PRN (19:00)
[2017-05-17] MEDS: INSULIN ASPART SUPPLEMENTAL SCALE SQ SCH (20:45)
[2017-05-17] MEDS: MIRTAZAPINE 15 MG TAB PO SCH (20:58)
[2017-05-17] MEDS: ATORVASTATIN 20 MG TAB PO SCH (20:59)
[2017-05-17] MEDS: REMOVE OLD NICODERM (NICOTINE) PATCH T-DERMAL SCH (21:00)
[2017-05-18 05:58] VITALS: BP 92/54; PULSE 64; RESP 17; TEMP 97.4; O2SAT 95
[2017-05-18] MEDS: INSULIN ASPART SUPPLEMENTAL SCALE SQ SCH ×4 (06:33→21:00)
[2017-05-18] MEDS: risperiDONE 1 MG TAB PO SCH (08:32)
[2017-05-18] MEDS: MULTIVITAMIN TAB PO SCH (08:32)
[2017-05-18] MEDS: metFORMIN HCL 500 MG TAB PO SCH ×3 (08:32→18:00)
[2017-05-18] MEDS: THIAMINE HCL 100 MG TAB PO SCH (08:32)
[2017-05-18] MEDS: FOLIC ACID 1 MG TAB PO SCH (08:33)
[2017-05-18] MEDS: NICOTINE 21 MG/24 HR PATCH T-DERMAL SCH (08:37)
[2017-05-18] MEDS: LIDOCAINE HCL 5% PATCH T-DERMAL SCH (08:43)
[2017-05-18] MEDS: cloNIDine HCL 0.1 MG TAB PO SCH ×2 (09:00→21:28)
[2017-05-18] MEDS: LISINOPRIL 20 MG TAB PO SCH (09:00)
[2017-05-18 09:41] VITALS: BP 128/66
--- NOTE | 2017-05-18 10:41 | HHI.PR ---
Subjective Remarks This is a 62-year-old male with past medical history significant for hypertension, diabetes, dyslipidemia and COPD who was brought into the ED under Gomez act for suicidal ideation and was found to have hyponatremia likely due to alcohol abuse and hypocalcemia both of which resolved prior to him being admitted to the inpatient psychiatric unit. Additionally, patient had complaints of left shoulder pain and decreased range of motion x-ray does not show any evidence of fracture and or so was consulted and recommended outpatient follow-up. Hospitalist services have been consulted for medical management. Patient continues to have same complaints of left shoulder pain. He also states that he's having more whitish sputum production. He denies any increasing cough or shortness of breath. He denies any chest pain. Denies any fever or chills. Patient also complains of headache today. He denies any nausea, vomiting or abdominal pain. 05-18 PATIENT IS STABLE NO NEW COMPLAINTS AT THIS TIME WILL SIGN OFF PLEASE RECONSULT IF NEEDED Objective Vitals Vital Signs Date Time Temp Pulse Resp B/P Pulse Ox O2 Delivery O2 Flow Rate FiO2 05/18/17 09:41 128/66 05/18/17 05:58 97.4 64 17 92/54 95 05/17/17 18:28 98.2 74 18 141/69 98 Result Diagram: 05/17/17 1114 Other Results Laboratory Tests Test 05/17/17 11:14 Sodium Level 137 MEQ/L Potassium Level 4.1 MEQ/L Chloride Level 105 MEQ/L Carbon Dioxide Level 26.0 MEQ/L Anion Gap 6 MEQ/L Blood Urea Nitrogen 14 MG/DL Creatinine 0.87 MG/DL Estimat Glomerular Filtration 90 ML/MIN Rate Random Glucose 167 MG/DL Hemoglobin A1c 5.8 % Calcium Level 7.8 MG/DL Triglycerides Level 173 MG/DL Cholesterol Level 104 MG/DL LDL Cholesterol 37 MG/DL HDL Cholesterol 32.0 MG/DL Cholesterol/HDL Ratio 3.25 RATIO Objective Remarks GENERAL: This is a well-nourished, well-developed patient, in no apparent distress. Awake and alert. SKIN: No rashes, ecchymoses or lesions. Cool and dry. HEAD: Atraumatic. Normocephalic. No temporal or scalp tenderness. EYES: Pupils equal round and reactive. Extraocular motions intact. No scleral icterus. No injection or drainage. ENT: Nose without bleeding or purulent drainage. Throat without erythema, tonsillar hypertrophy or exudate. Uvula midline. Airway patent. Tongue is midline NECK: Trachea midline. No lymphadenopathy. Supple, nontender, no meningeal signs. CARDIOVASCULAR: Regular rate and rhythm without murmurs, gallops, or rubs. S1- S2 no S3 or S4 or thrill RESPIRATORY: Clear to auscultation. Breath sounds equal bilaterally. No wheezes , rales, or rhonchi. GASTROINTESTINAL: Abdomen soft, non-tender, nondistended. No hepato-splenomegaly , or palpable masses. No guarding. MUSCULOSKELETAL: Extremities without clubbing, cyanosis, or edema. Positive for tenderness palpation left shoulder with decreased range of motion. No calf tenderness. NEUROLOGICAL: Awake and alert. Able to move all extremities. No focal neurologic finding. Normal speech. Insight and judgment are limited Medications and IVs Current Medications Albuterol Sulfate (Ventolin Hfa Inh) 2 puff Q8HR PRN INH SHORTNESS OF BREATH; Start 05/16/17 at 15:30 Alprazolam (Xanax) 0.5 mg Q8H PRN PO ANXIETY; Start 05/16/17 at 15:15; Status UNV Atorvastatin Calcium (Lipitor) 20 mg HS PO Last administered on 05/17/17 20:59 ; Start 05/16/17 at 21:00 Clonidine (Catapres) 0.1 mg BID PO Last administered on 05/17/17 20:58; Start 05/16/17 at 21:00 Lisinopril (Prinivil) 20 mg DAILY PO Last administered on 05/17/17 08:34; Start 05/16/17 at 15:30 Metformin HCl (Glucophage) 500 mg TID PO Last administered on 05/18/17 08:32; Start 05/16/17 at 18:00 Trazodone HCl (Desyrel) 100 mg HS PO Last administered on 05/16/17 21:38; Start 05/16/17 at 21:00; Stop 05/17/17 at 14:12; Status DC Lorazepam (Ativan) 1 mg Q6H PRN PO MODERATE TO SEVERE ANXIETY Last administered on 05/16/17 21:43; Start 05/16/17 at 15:15; Stop 05/17/17 at 14:12 ; Status DC Lorazepam (Ativan Inj) 1 mg Q6H PRN IM MODERATE TO SEVERE ANXIETY; Start at 15:15; Stop 05/17/17 at 14:12; Status DC Lorazepam (Ativan) 0.5 mg Q12H PRN PO MODERATE TO SEVERE ANXIETY; Start at 15:15; Status UNV Lorazepam (Ativan Inj) 0.5 mg Q12H PRN IM MODERATE TO SEVERE ANXIETY; Start at 15:15; Status UNV Acetaminophen (Tylenol) 650 mg Q4H PRN PO Pain 1-5 or Temp >101F Last administered on 05/17/17 12:39; Start 05/16/17 at 15:15; Stop 05/17/17 at 14:25 ; Status DC Magnesium Hydroxide (Milk Of Magnesia Liq) 30 ml DAILY PRN PO CONSTIPATION; Start 05/16/17 at 15:15; Stop 05/17/17 at 14:25; Status DC Al Hydrox/Mg Hydrox/Simethicone (Mag-Al Plus Susp Liq) 30 ml Q6H PRN PO DYSPEPSIA; Start 05/16/17 at 15:15; Stop 05/17/17 at 14:25; Status DC Nicotine (Habitrol 21 Mg Patch.24 Hr) 1 patch DAILY T-DERMAL Last administered on 05/17/17 08:34; Start 05/16/17 at 16:00 Miscellaneous Information 1 HS T-DERMAL ; Start 05/16/17 at 21:00 Mirtazapine (Remeron) 15 mg HS PO Last administered on 05/17/17 20:58; Start 05/17/17 at 21:00 Risperidone (risperDAL) 1 mg DAILY PO Last administered on 05/18/17 08:32; Start 05/17/17 at 15:00 Diphenhydramine HCl (Benadryl) 50 mg HS PRN PO INSOMNIA; Start 05/17/17 at 14: 15 Acetaminophen (Tylenol) 650 mg Q4H PRN PO Pain 1-5 or Temp >101F; Start at 14:15 Magnesium Hydroxide (Milk Of Magnesia Liq) 30 ml DAILY PRN PO CONSTIPATION; Start 05/17/17 at 14:15 Al Hydrox/Mg Hydrox/Simethicone (Mag-Al Plus Susp Liq) 30 ml Q6H PRN PO DYSPEPSIA; Start 05/17/17 at 14:15 Nicotine (Habitrol 21 Mg Patch.24 Hr) 1 patch DAILY T-DERMAL ; Start 05/17/17 at 14:15; Status Cancel Hydroxyzine HCl (Atarax) 50 mg Q6H PRN PO ANXIETY; Start 05/17/17 at 14:15 Multivitamins (Theragran) 1 tab DAILY PO Last administered on 05/18/17 08:32; Start 05/17/17 at 14:15 Thiamine HCl (Vitamin B1) 100 mg DAILY PO Last administered on 05/18/17 08:32 ; Start 05/17/17 at 14:15 Dextrose (D50w (Vial) Inj) 50 ml UNSCH PRN IV HYPOGLYCEMIA-SEE COMMENTS; Start 05/17/17 at 19:00 Glucagon (Glucagon Inj) 1 mg UNSCH PRN OTHER HYPOGLYCEMIA-SEE COMMENTS; Start 05/17/17 at 19:00 Insulin Aspart (NovoLOG SUPPLEMENTAL SCALE) 1 ACHS SLIDING SCALE SQ ; Start at 21:00 Acetaminophen/ Butalbital/ Caffeine (Fioricet 325-50-40) 1 tab ONCE ONCE PO Last administered on 05/17/17 18:15; Start 05/17/17 at 18:15; Stop 05/17/17 at 18:21; Status DC Lidocaine HCl (Lidoderm 5% Patch.12 Hr) 1 patch DAILY T-DERMAL Last administered on 05/18/17 08:43; Start 05/18/17 at 09:00 Folic Acid (Folate) 1 mg DAILY PO Last administered on 05/18/17 08:33; Start 05/18/17 at 09:00 Albuterol/ Ipratropium (Duoneb Neb) 1 ampule Q6HR NEB PRN NEB SOB, WHEEZING, CONGESTION; Start 05/17/17 at 18:15 Miscellaneous Information 1 Q24H T-DERMAL ; Start 05/17/17 at 08:00; Stop at 18:28; Status DC Miscellaneous Information 1 Q24H T-DERMAL ; Start 05/18/17 at 21:00 Urinary Catheter: No Vascular Central Line Catheter: No A/P Problem List: (1) History of alcohol abuse ICD Code: Z87.898 Status: Acute (2) Schizoaffective disorder, depressive type ICD Code: F25.1 Status: Acute (3) Suicidal thoughts ICD Code: R45.851 Status: Acute (4) Hyponatremia ICD Code: E87.1 Status: Acute (5) Chronic pain ICD Code: G89.29 Status: Acute (6) HTN (hypertension) ICD Code: I10 Status: Acute (7) Diabetes ICD Code: E11.9 Status: Acute (8) Depression with suicidal ideation ICD Code: F32.9 Status: Acute Assessment and Plan 62-year-old male with past medical history significant for hypertension, diabetes, dyslipidemia and COPD who was brought into the ED under Gomez act for suicidal ideation and was found to have hyponatremia likely due to alcohol abuse and hypocalcemia both of which resolved prior to him being admitted to the inpatient psychiatric unit. Bipolar Schizoaffective disorder Suicidal ideation Management per psychiatric team COPD, not in acute exacerbation Chest x-ray 05/13/17 personally reviewed shows no evidence of acute cardiopulmonary disease DuoNeb's as needed Hyponatremia Hypocalcemia Resolved Continue to monitor as indicated Left shoulder pain X-ray left shoulder personally reviewed dated 05/14/17 shows no evidence of fracture dislocation Patient evaluated by orthopedics who recommended follow-up as an outpatient Trial of Lidoderm patch PT eval/tx HTN Continue patient's home dose of lisinopril 20 mg daily and Clonidine 0.1mg BID Monitor BP DM Continue patient on his metformin 500 mg 3 times a day Accu-Cheks Insulin sliding scale Hgb A1c pending Headache Fioricet x 1 dose Dyslipidemia Continue patient on statin therapy H/O binge alcohol use Continue multivitamin, thiamine and folic acid daily DVT prophylaxis Patient is ambulatory WILL SIGN OFF NO NEW COMPLAINTS RECONSULT IF NEEDED Christopher Pisano DO May 18, 2017 10:41
--- NOTE | 2017-05-18 12:40 | PD.PSY.CON ---
Provisional Diagnosis Admission Date May 16, 2017 at 14:38 [place] I. Schizoaffective disorder depressive type f 25.1, history of alcohol abuse Z 87.898 History of Present Illness Service Psychiatry Consult Requested By Reason for Consult Second opinion Primary Care Physician Unknown HPI Patient is a 62-year-old white male who initially comes to the emergency department under Gomez act by the [facility] Department dated 05/13/17 at 11:25 AM that document reviewed essentially is stating upon officers arrival Amor Griffiths explained to officers that he wanted to take his own life. Mr. Griffiths stated his was not worth it anymore and he wished to and his life. Mr. Bradshaw is prescribed medications for bipolar and schizoaffective however he has not been taking the medication Amor Griffiths stated to officers he had been drinking earlier in the day patient was initially admitted to the medical unit 2 05/15/17 under visit [id number]. It appears there is no urine toxicology her blood alcohol level drawn. This consultation by Dr. Hughes recommended transfer to the psychiatric unit when medically cleared. Of interest patient has records going back a number of years with us the laboratories have been reviewed by me since July 2008 patient said 7 blood alcohol levels drawn that range from 229 to 477. Patient also had orthopedic consultation on that visit. Recommendation was for him to follow-up with shoulder problems as an outpatient. At the present time patient sitting quietly in his room with nurse Sina. Says he is at the end of his rope life is not worth living, he has no family, no future, though acknowledges also his last drink was less than a week ago. Had been drinking daily for a few months prior to that. Acknowledged a.m. drinking, so low drinking, blacking out, passing out, he does have a history of detox though none more recent than 10 years ago at [facility]. He states his had at least 3 of 4 DUIs with incarcerations associated with them. He does acknowledge past psychiatric history saying he has been a client at [facility] but not since around 10 years ago. He states he has been kicked out of his apartment. At the present time he is homeless. He acknowledges continued suicidal thoughts, he acknowledges vague visual perceptual abnormalities of lites and perhaps birds or insects, he also acknowledges vague auditory hallucinations. We did discuss medications. Patient states she has been on multiple medications in the past. He states he was on Seroquel in the past was involved with a class action suit against that drug was awarded some type of financial settlement. We will start the patient on Remeron 15 mg at at bedtime he does complain of some insomnia. We will add Respinol 1 mg a.m. in the morning since he states he did do fairly well on that in the past. Will refrain from any benzodiazepines or opiates at the present time considering his significant addictions history. Patient did state he was a polysubstance abuser 15-20+ years ago though denying intravenous drug use. He states she will would like to in some type of her program. We did discuss [facility]. He states he might be interested in that. Thus will be admitted at this time I feel he meets criteria for involuntary psychiatric hospitalization I will do first opinion requests a second opinion though the hospitalist continue the consultation willingness also The patient is a 62 year old man, domiciled alone, single, no kids, on disability with psychiatric history of schizoaffective disorder, bipolar type , 2 previous psychiatric hospitalizations, he has been Gomez acted before due to alcohol related issues, suicidal attempts, no established outpatient care, no psychotropics at this moment, he has been psychiatrically in [place] in the past due to alcohol intoxication and suicidal ideation, with history medical of hypertension,diabetes,dyslipidemia and COPD who was brought to ER under gomez act - with suicidal thoughts.he says that he's depressed, tired and start to drink a bit recently. he says that his last drink was last night. he's complaining of some lower extremity muscle spasm and some nausea. He was seen today for second opinion. On psychiatric evaluation today patient is found in his bed, he seems to be very distant, with marked psychomotor retardation, lack affect, objectively depressed. Patient reports that he has been increasingly drinking alcohol in the last month after a long period of sobriety. Patient says that he has been thinking seriously in ending his life and committed suicide by hanging or jumping in front of a car. Patient says the life is not worth living anymore and he has been increasingly feeling alone, detach from the society, with decreased functionality due to medical problems, with sense of worthlessness, helplessness, hopelessness, continues suicidal ideation. Yesterday he was about to lose control and he decided to call the police and give himself a chance. Patient also reports not sleeping at all, decreased weight, anhedonia, decreased level of energy "I just don't want to stick around anymore". Patient denies homicidal ideation, he denies visual and auditory hallucinations. She is unable to identify any acute stressor, but he says that his living environment is "very toxic". No protective factors identified at this moment. Patient denies visual and auditory hallucinations. Reports increased paranoia of mistrusting people around him. Oriented 3, no attention deficit, no fluctuation of consciousness. Patient denies the use of illicit drugs, increased alcohol use, he fails to quantify how much alcohol she is taking daily, just says "a lot". He reports past withdrawal symptoms, he also has been in rehabs/detox in the past,. Past Family Social History Coded Allergies: No Known Allergies (Verified , 05/13/17) Active Scripts Multiple Vitamin (Thera/Beta-Carotene)1 Tab Tab1 Tab PO DAILY 30 Days Ref 0 Prov:Adriane Bal MD 05/15/17 Thiamine HCl ([facility] Vitamin B-1)100 Mg Eeq275 Mg PO DAILY 30 Days Ref 0 Prov:Adriane Bal MD 05/15/17 Reported Medications Lisinopril 20 Mg Tab20 Mg PO DAILY #30 TAB Ref 0 05/13/17 Atorvastatin 20 Mg Tab20 Mg PO HS #30 TAB Ref 0 05/13/17 Clonidine 0.1 Mg Tab0.1 Mg PO BID #60 TAB Ref 0 05/13/17 Albuterol 8.5 GM Inh (Proair Hfa 8.5 GM Inh)90 Mcg/Act Aer2 Puff INH Q4-6H PRN ( SHORTNESS OF BREATH) #1 INHALER Ref 0 108 mcg/actuation 05/13/17 Metformin 500 Mg Stp769 Mg PO TID #60 TAB Ref 0 With meals 05/13/17 Discontinued Reported Medications Hydrocodone-Acetaminophen 10-325 mg Tab1 Tab PO Q6H PRN (PAIN) Ref 0 05/13/17 Alprazolam 0.5 Mg Tab0.5 Mg PO Q8H PRN (ANXIETY) Ref 0 05/13/17 Glipizide 5 Mg Tab2.5 Mg PO DAILY #60 TAB Ref 0 Take 30 minutes before a meal 05/13/17 Current Medications Medications (Trade) Dose Ordered Sig/Lillian Route Start Time Stop Time Status Last Admin (Ventolin Hfa Inh) 2 puff Q8HR PRN INH 05/16/17 15:30 (Lipitor) 20 mg HS PO 05/16/17 21:00 05/17/17 20:59 (Catapres) 0.1 mg BID PO 05/16/17 21:00 05/17/17 20:58 (Prinivil) 20 mg DAILY PO 05/16/17 15:30 05/17/17 08:34 (Glucophage) 500 mg TID PO 05/16/17 18:00 05/18/17 12:13 (Habitrol 21 Mg Patch.24 Hr) 1 patch DAILY T-DERMAL 05/16/17 16:00 05/17/17 08:34 Miscellaneous Information 1 HS T-DERMAL 05/16/17 21:00 (Remeron) 15 mg HS PO 05/17/17 21:00 05/17/17 20:58 (risperDAL) 1 mg DAILY PO 05/17/17 15:00 05/18/17 08:32 (Benadryl) 50 mg HS PRN PO 05/17/17 14:15 (Tylenol) 650 mg Q4H PRN PO 05/17/17 14:15 (Milk Of Magnesia Liq) 30 ml DAILY PRN PO 05/17/17 14:15 (Mag-Al Plus Susp Liq) 30 ml Q6H PRN PO 05/17/17 14:15 (Atarax) 50 mg Q6H PRN PO 05/17/17 14:15 (Theragran) 1 tab DAILY PO 05/17/17 14:15 05/18/17 08:32 (Vitamin B1) 100 mg DAILY PO 05/17/17 14:15 05/18/17 08:32 (D50w (Vial) Inj) 50 ml UNSCH PRN IV 05/17/17 19:00 (Glucagon Inj) 1 mg UNSCH PRN OTHER 05/17/17 19:00 (Lidoderm 5% Patch.12 Hr) 1 patch DAILY T-DERMAL 05/18/17 09:00 05/18/17 08:43 (Folate) 1 mg DAILY PO 05/18/17 09:00 05/18/17 08:33 Miscellaneous Information 1 Q24H T-DERMAL 05/18/17 21:00 Social History He was born and raised in [facility], he lives alone in [facility] [place], he is single, no kids, unemployed, with disability, highest level of education is high school Patient's Strengths (min. 2) Patient verbal able to access healthcare Physical Exam Vital Signs Vital Signs Date Time Temp Pulse Resp B/P Pulse Ox O2 Delivery O2 Flow Rate FiO2 05/18/17 09:41 128/66 05/18/17 05:58 97.4 64 17 95 Mental Status Examination Appearance man, age appearing, good hygiene, guarded, hypoactivity, superficially cooperative Speech: Unremarkable Orientation: x3 Memory: Unremarkable Thought Process: Linear Thought Content: Unremarkable, Ideas of Reference Hallucination Type: Auditory, Visual Attention and Concentration: Other (fair) Suicidal Ideation: Yes Previous Suicide Attempts: Yes Homicidal Ideation: No Previous Homicide Attempts: No Insight: Poor Judgment: Poor Affect: Other (decreased range and intensity) Mood: Sad Motor Activity: Normal gait Assessment & Plan Problem List: (1) Schizoaffective disorder, depressive type Assessment & Plan: I have seen and examined this patient, reviewed the treatment patient, and I completely agree and concur with Dr. Sosa's assessment and plan. ICD Code: F25.1 (2) History of alcohol abuse ICD Code: Z87.898 Assessment & Plan Estimated LOS: days Request HC Surrog/Guard Advoc?: No Sergio Johnson MD May 18, 2017 12:40
[2017-05-18 15:27] VITALS: BP 157/81; PULSE 80; RESP 18; TEMP 97.7
--- NOTE | 2017-05-18 16:48 | HHI.PYPN ---
Subjective Remarks Patient seen today in his room with medical student Susan. Is continues somewhat irritable and perhaps manipulative. Keep stating how his reached the bottom of the barrel they does not know what to do that he can go back to the situation that he was living. He does denies suicidality at the present time but does make vague claims about what he would do. However he appears willing to discuss placement issues. He states he has perhaps limited and does not about the [facility]. Will have him contact them with the assistance of our counselor. However whenever make references to his alcoholism becomes angry and defensive. For now continue treatment Review of Systems Except as stated in HPI: all other systems reviewed are Neg Objective Alert: Yes [place]: Person, Place, Date Mood: Angry, Calm Affect: Labile Memory Intact: Comment Hallucinations: Other (denies) Delusions: No (denies) Delusion Type: Other (vigilant) Suicidal: Ideation (denies well being in the hospital) Homicidal: Ideation (denies) Insight/Judgment Poor Vitals/IOs Vital Signs Date Time Temp Pulse Resp B/P Pulse Ox O2 Delivery O2 Flow Rate FiO2 05/18/17 15:27 97.7 80 18 157/81 05/18/17 05:58 95 Assessment & Plan Problem List: (1) Schizoaffective disorder, depressive type ICD Code: F25.1 (2) History of alcohol abuse ICD Code: Z87.898 Assessment & Plan Estimated LOS: days patient remains somewhat depressed and anxious. Though this is a degree of manipulation involved with this. We'll continue to attempt to find appropriate placements for him perhaps [place] [facility] Justification for Cont. Inpt. At this time patient may decompensate now placed in an appropriate level of care Discharge Planning To be determined Request HC Surrog/Guard Advoc?: No Johnnie Sosa MD May 18, 2017 16:48
[2017-05-18] MEDS: REMOVE OLD NICODERM (NICOTINE) PATCH T-DERMAL SCH (21:00)
[2017-05-18] MEDS: REMOVE OLD LIDOCAINE PATCH T-DERMAL SCH (21:00)
[2017-05-18] MEDS: hydrOXYzine HCL 50 MG TAB PO PRN (21:28)
[2017-05-18] MEDS: MIRTAZAPINE 15 MG TAB PO SCH (21:28)
[2017-05-18] MEDS: ATORVASTATIN 20 MG TAB PO SCH (21:28)
[2017-05-18] MEDS: diphenhydrAMINE HCL 50 MG CAP PO PRN (23:20)
[2017-05-19 05:05] VITALS: BP 128/63; PULSE 65; RESP 18; TEMP 98.8; O2SAT 97
[2017-05-19] MEDS: INSULIN ASPART SUPPLEMENTAL SCALE SQ SCH ×4 (06:31→21:00)
[2017-05-19] MEDS: MULTIVITAMIN TAB PO SCH (09:18)
[2017-05-19] MEDS: LIDOCAINE HCL 5% PATCH T-DERMAL SCH (09:18)
[2017-05-19] MEDS: NICOTINE 21 MG/24 HR PATCH T-DERMAL SCH (09:19)
[2017-05-19] MEDS: cloNIDine HCL 0.1 MG TAB PO SCH ×2 (09:19→21:40)
[2017-05-19] MEDS: risperiDONE 1 MG TAB PO SCH (09:19)
[2017-05-19] MEDS: metFORMIN HCL 500 MG TAB PO SCH ×3 (09:19→17:26)
[2017-05-19] MEDS: THIAMINE HCL 100 MG TAB PO SCH (09:19)
[2017-05-19] MEDS: LISINOPRIL 20 MG TAB PO SCH (09:19)
[2017-05-19] MEDS: FOLIC ACID 1 MG TAB PO SCH (09:19)
--- NOTE | 2017-05-19 13:47 | HHI.PYPN ---
Subjective Remarks Patient seen in his room with nurse Laura, chart review, patient compliant medications. Patient is to focus on placement issues now focusing on [facility] and [facility] [place]. It appears she has been in both of those facilities in the past he is processing these issues slightly better today though he is still irritable. He did not focus on suicidality homicidality voices or visions. Is compliant with medications. Now continue treatment work with placement issues Review of Systems Except as stated in HPI: all other systems reviewed are Neg Objective Alert: Yes [place]: Person, Place, Date Mood: Angry, Calm Affect: Labile Memory Intact: Comment Hallucinations: Other (denies) Delusions: No (denies) Delusion Type: Other (vigilant) Suicidal: Ideation (denies well being in the hospital) Homicidal: Ideation (denies) Insight/Judgment Poor Vitals/IOs Vital Signs Date Time Temp Pulse Resp B/P Pulse Ox O2 Delivery O2 Flow Rate FiO2 05/19/17 05:05 98.8 65 18 128/63 97 Assessment & Plan Problem List: (1) Schizoaffective disorder, depressive type ICD Code: F25.1 (2) History of alcohol abuse ICD Code: Z87.898 Assessment & Plan Estimated LOS: days patient continues somewhat irritable angry though softer. We continue to work on placement issues. Is somewhat vague about suicidality today Justification for Cont. Inpt. At this time patient may decompensate. Placed in an appropriate level of care Discharge Planning To be determined Request HC Surrog/Guard Advoc?: No Johnnie Sosa MD May 19, 2017 13:47
[2017-05-19] MEDS: REMOVE OLD LIDOCAINE PATCH T-DERMAL SCH (21:00)
[2017-05-19] MEDS: REMOVE OLD NICODERM (NICOTINE) PATCH T-DERMAL SCH (21:00)
[2017-05-19] MEDS: MIRTAZAPINE 15 MG TAB PO SCH (21:40)
[2017-05-19] MEDS: hydrOXYzine HCL 50 MG TAB PO PRN (21:40)
[2017-05-19] MEDS: ATORVASTATIN 20 MG TAB PO SCH (21:40)
[2017-05-20] MEDS: hydrOXYzine HCL 50 MG TAB PO PRN ×2 (01:10→21:04)
[2017-05-20 05:38] VITALS: BP 150/79; PULSE 67; RESP 17; TEMP 98.2; O2SAT 96
[2017-05-20] MEDS: INSULIN ASPART SUPPLEMENTAL SCALE SQ SCH ×4 (06:50→21:00)
[2017-05-20] MEDS: LISINOPRIL 20 MG TAB PO SCH (08:43)
[2017-05-20] MEDS: metFORMIN HCL 500 MG TAB PO SCH ×3 (08:43→17:02)
[2017-05-20] MEDS: MULTIVITAMIN TAB PO SCH (08:43)
[2017-05-20] MEDS: cloNIDine HCL 0.1 MG TAB PO SCH ×2 (08:43→21:04)
[2017-05-20] MEDS: FOLIC ACID 1 MG TAB PO SCH (08:43)
[2017-05-20] MEDS: risperiDONE 1 MG TAB PO SCH (08:43)
[2017-05-20] MEDS: LIDOCAINE HCL 5% PATCH T-DERMAL SCH (08:44)
[2017-05-20] MEDS: THIAMINE HCL 100 MG TAB PO SCH (08:44)
[2017-05-20] MEDS: NICOTINE 21 MG/24 HR PATCH T-DERMAL SCH (09:00)
--- NOTE | 2017-05-20 15:47 | HHI.PYPN ---
Subjective Remarks Patient seen in his room with nurse Sandra, patient continues irritable demanding and somewhat entitled. Is also frustrated with the realization of the difficulty in finding a sober house for rehabilitation type program. Thus complains of some continued pain. We'll discontinue the Tylenol and offer Motrin 800 mg every 8 hours when necessary pain patient to continue calling [facility] Review of Systems Except as stated in HPI: all other systems reviewed are Neg Objective Alert: Yes [place]: Person, Place, Date Mood: Angry, Calm Affect: Labile Memory Intact: Comment Hallucinations: Other (denies) Delusions: No (denies) Delusion Type: Other (vigilant) Suicidal: Ideation (denies well being in the hospital) Homicidal: Ideation (denies) Insight/Judgment Poor Vitals/IOs Vital Signs Date Time Temp Pulse Resp B/P Pulse Ox O2 Delivery O2 Flow Rate FiO2 05/20/17 05:38 98.2 67 17 150/79 96 Assessment & Plan Problem List: (1) Schizoaffective disorder, depressive type ICD Code: F25.1 (2) History of alcohol abuse ICD Code: Z87.898 Assessment & Plan Estimated LOS: days patient mood is improving somewhat. Though there is frustration irritability and some entitlement related to placement issues in programming issues. The may also be some component of his homelessness and manipulation of the system. Justification for Cont. Inpt. At this time patient may decompensate if placed on the lower level of care Discharge Planning To be determined Request HC Surrog/Guard Advoc?: No Johnnie Sosa MD May 20, 2017 15:47
[2017-05-20 18:26] VITALS: BP 166/76; PULSE 43; RESP 16; TEMP 97.9; O2SAT 98
[2017-05-20] MEDS: IBUPROFEN 800 MG TAB PO PRN (18:40)
[2017-05-20] MEDS: REMOVE OLD NICODERM (NICOTINE) PATCH T-DERMAL SCH (21:00)
[2017-05-20] MEDS: REMOVE OLD LIDOCAINE PATCH T-DERMAL SCH (21:00)
[2017-05-20] MEDS: ATORVASTATIN 20 MG TAB PO SCH (21:04)
[2017-05-20] MEDS: diphenhydrAMINE HCL 50 MG CAP PO PRN (21:04)
[2017-05-20] MEDS: MIRTAZAPINE 15 MG TAB PO SCH (21:04)
[2017-05-21 05:32] VITALS: BP 146/88; PULSE 79; RESP 16; TEMP 98.2
[2017-05-21] MEDS: INSULIN ASPART SUPPLEMENTAL SCALE SQ SCH ×4 (06:26→20:36)
[2017-05-21] MEDS: cloNIDine HCL 0.1 MG TAB PO SCH ×2 (08:26→21:48)
[2017-05-21] MEDS: THIAMINE HCL 100 MG TAB PO SCH (08:26)
[2017-05-21] MEDS: LISINOPRIL 20 MG TAB PO SCH (08:26)
[2017-05-21] MEDS: LIDOCAINE HCL 5% PATCH T-DERMAL SCH (08:27)
[2017-05-21] MEDS: FOLIC ACID 1 MG TAB PO SCH (08:27)
[2017-05-21] MEDS: risperiDONE 1 MG TAB PO SCH (08:27)
[2017-05-21] MEDS: metFORMIN HCL 500 MG TAB PO SCH ×3 (08:27→16:09)
[2017-05-21] MEDS: MULTIVITAMIN TAB PO SCH (08:27)
[2017-05-21] MEDS: NICOTINE 21 MG/24 HR PATCH T-DERMAL SCH (08:28)
[2017-05-21] MEDS: IBUPROFEN 800 MG TAB PO PRN ×2 (08:42→19:29)
--- NOTE | 2017-05-21 10:21 | HHI.PYPN ---
Subjective Remarks Patient seen in his room with nurse Sandra and counselor Abigail. Patient showing some insight into his need to take responsibility for his lodging. He is now considering renting a room. While considers his future. He is had history of being homeless. He does know about the coalition for almost get assistance. For now continue treatment discharge patient on Thursday 05/24 Review of Systems Except as stated in HPI: all other systems reviewed are Neg Objective Alert: Yes [place]: Person, Place, Date Mood: Angry, Calm Affect: Labile Memory Intact: Comment Hallucinations: Other (denies) Delusions: No (denies) Delusion Type: Other (vigilant) Suicidal: Ideation (denies well being in the hospital) Homicidal: Ideation (denies) Insight/Judgment Poor Vitals/IOs Vital Signs Date Time Temp Pulse Resp B/P Pulse Ox O2 Delivery O2 Flow Rate FiO2 05/21/17 09:43 18 05/21/17 05:32 98.2 79 146/88 05/20/17 18:26 98 Intake and Output 05/20/17 05/20/17 05/20/17 07:59 15:59 23:59 Intake Total 480 ml Balance 480 ml Assessment & Plan Problem List: (1) Schizoaffective disorder, depressive type ICD Code: F25.1 (2) History of alcohol abuse ICD Code: Z87.898 Assessment & Plan Estimated LOS: days patient mood is improving, he is taking some responsibility now for Placement issues. Compliant medications. Denies suicidality homicidality voices or visions Justification for Cont. Inpt. At this time patient will decompensate is not placed in an appropriate level of care Discharge Planning To be determined Request HC Surrog/Guard Advoc?: No Johnnie Sosa MD May 21, 2017 10:21
[2017-05-21] MEDS: ALBUTEROL SULFATE 90 MCG/ACT HFA 18 GM INHALER INH PRN (11:05)
[2017-05-21 20:33] VITALS: BP 139/65; PULSE 85; RESP 18; TEMP 98.3; O2SAT 96
[2017-05-21] MEDS: REMOVE OLD LIDOCAINE PATCH T-DERMAL SCH (21:00)
[2017-05-21] MEDS: REMOVE OLD NICODERM (NICOTINE) PATCH T-DERMAL SCH (21:00)
[2017-05-21] MEDS: ATORVASTATIN 20 MG TAB PO SCH (21:48)
[2017-05-21] MEDS: MIRTAZAPINE 15 MG TAB PO SCH (21:49)
[2017-05-21] MEDS: hydrOXYzine HCL 50 MG TAB PO PRN (21:51)
[2017-05-22 05:38] VITALS: BP 160/78; PULSE 70; RESP 17; TEMP 97.9
[2017-05-22] MEDS: INSULIN ASPART SUPPLEMENTAL SCALE SQ SCH ×4 (06:14→20:38)
[2017-05-22] MEDS: metFORMIN HCL 500 MG TAB PO SCH ×3 (08:43→17:16)
[2017-05-22] MEDS: FOLIC ACID 1 MG TAB PO SCH (08:43)
[2017-05-22] MEDS: cloNIDine HCL 0.1 MG TAB PO SCH ×2 (08:43→20:27)
[2017-05-22] MEDS: LISINOPRIL 20 MG TAB PO SCH (08:43)
[2017-05-22] MEDS: MULTIVITAMIN TAB PO SCH (08:43)
[2017-05-22] MEDS: risperiDONE 1 MG TAB PO SCH (08:43)
[2017-05-22] MEDS: THIAMINE HCL 100 MG TAB PO SCH (08:43)
[2017-05-22] MEDS: LIDOCAINE HCL 5% PATCH T-DERMAL SCH (08:47)
[2017-05-22] MEDS: NICOTINE 21 MG/24 HR PATCH T-DERMAL SCH (09:00)
[2017-05-22] MEDS: ALBUTEROL SULFATE 90 MCG/ACT HFA 18 GM INHALER INH PRN ×2 (09:00→16:30)
[2017-05-22] MEDS: IBUPROFEN 800 MG TAB PO PRN ×2 (09:14→17:15)
--- NOTE | 2017-05-22 14:19 | HHI.PYPN ---
Subjective Remarks Patient was seen and case discussed with nursing. Patient is laughing and able to joke during the interview. Has some concerns about his pending discharge. Mood is "okay." Chief complaint today is poor sleep. Denies suicidal or homicidal ideation intent or plan Objective Alert: Yes [place]: Person, Place, Date Mood: Calm Affect: Labile Memory Intact: Comment Hallucinations: Other (denies) Delusions: No (denies) Delusion Type: Other (vigilant) Suicidal: Ideation (denies well being in the hospital) Homicidal: Ideation (denies) Insight/Judgment Poor Vitals/IOs Vital Signs Date Time Temp Pulse Resp B/P Pulse Ox O2 Delivery O2 Flow Rate FiO2 05/22/17 05:38 97.9 70 17 160/78 05/21/17 20:33 96 Assessment & Plan Problem List: (1) Schizoaffective disorder, depressive type ICD Code: F25.1 (2) History of alcohol abuse ICD Code: Z87.898 Assessment & Plan Continue current treatment plan, change Benadryl to scheduled dosing for sleep Justification for Cont. Inpt. Patient would decompensate in a less restrictive setting Request HC Surrog/Guard Advoc?: No Luis Sofia DO May 22, 2017 14:19
[2017-05-22 17:00] VITALS: BP 178/86; PULSE 54; RESP 17; TEMP 97.9; O2SAT 97
[2017-05-22] MEDS: hydrOXYzine HCL 50 MG TAB PO PRN ×2 (17:15→22:04)
[2017-05-22] MEDS: diphenhydrAMINE HCL 50 MG CAP PO SCH (20:27)
[2017-05-22] MEDS: ATORVASTATIN 20 MG TAB PO SCH (20:27)
[2017-05-22] MEDS: MIRTAZAPINE 15 MG TAB PO SCH (20:28)
[2017-05-22] MEDS: REMOVE OLD NICODERM (NICOTINE) PATCH T-DERMAL SCH (20:29)
[2017-05-22] MEDS: REMOVE OLD LIDOCAINE PATCH T-DERMAL SCH (20:29)
[2017-05-22 22:28] VITALS: BP 151/71
[2017-05-23] MEDS: INSULIN ASPART SUPPLEMENTAL SCALE SQ SCH ×4 (06:00→21:00)
[2017-05-23 07:05] VITALS: BP 140/78; PULSE 67; RESP 18; O2SAT 98
[2017-05-23] MEDS: hydrOXYzine HCL 50 MG TAB PO PRN (07:44)
[2017-05-23] MEDS: IBUPROFEN 800 MG TAB PO PRN ×2 (07:44→16:00)
[2017-05-23] MEDS ORDERED: HALOPERIDOL 10 MG TAB ONE (08:13)
[2017-05-23] MEDS ORDERED: HALOPERIDOL LACTATE 5 MG/ML AMP IM ONE (08:15)
[2017-05-23] MEDS: LISINOPRIL 20 MG TAB PO SCH (09:00)
[2017-05-23] MEDS: FOLIC ACID 1 MG TAB PO SCH (09:00)
[2017-05-23] MEDS: THIAMINE HCL 100 MG TAB PO SCH (09:00)
[2017-05-23] MEDS: MULTIVITAMIN TAB PO SCH (09:00)
[2017-05-23] MEDS: LIDOCAINE HCL 5% PATCH T-DERMAL SCH (09:00)
[2017-05-23] MEDS: NICOTINE 21 MG/24 HR PATCH T-DERMAL SCH (09:00)
[2017-05-23] MEDS: metFORMIN HCL 500 MG TAB PO SCH ×3 (09:00→18:00)
[2017-05-23] MEDS: risperiDONE 1 MG TAB PO SCH (09:00)
[2017-05-23] MEDS: cloNIDine HCL 0.1 MG TAB PO SCH ×2 (09:00→21:16)
[2017-05-23 14:36] VITALS: TEMP 98.1
--- NOTE | 2017-05-23 16:09 | HHI.PYPN ---
Subjective Remarks Patient was seen and case discussed with nursing. Today patient has various somatic complaints. Patient claims he has been throwing up though this has not been witnessed by medical staff. He received Mylanta and milk of magnesia. Complaining of nausea during the interview. Complaining of diarrhea. Was irritable this morning and had to receive ETO Haldol him agitated about his possessions. Nursing has a suspicion patient may be malingering to prolong admission. Patient does describe his mood as being stable. Denies suicidal or homicidal ideation intent or plan. Vitals are within normal limits Objective Alert: Yes [place]: Person, Place, Date Mood: Calm Affect: Appropriate Memory Intact: Comment Hallucinations: Other (denies) Delusions: No (denies) Delusion Type: Other (vigilant) Suicidal: Ideation (denies well being in the hospital) Homicidal: Ideation (denies) Insight/Judgment Poor Vitals/IOs Vital Signs Date Time Temp Pulse Resp B/P (MAP) Pulse Ox O2 Delivery O2 Flow Rate FiO2 05/23/17 14:36 98.1 05/23/17 07:05 67 18 140/78 (98) 98 Assessment & Plan Problem List: (1) Schizoaffective disorder, depressive type ICD Codes: F25.1 - Schizoaffective disorder, depressive type Status: Acute (2) History of alcohol abuse ICD Codes: Z87.898 - Personal history of other specified conditions Status: Acute Assessment & Plan Continue current treatment plan Justification for Cont. Inpt. Patient would decompensate in a less restrictive setting Request HC Surrog/Guard Advoc?: No Luis Sofia DO May 23, 2017 16:09
[2017-05-23 18:40] VITALS: BP 157/70; PULSE 61; RESP 17; TEMP 98.1; O2SAT 98
[2017-05-23] MEDS: REMOVE OLD LIDOCAINE PATCH T-DERMAL SCH (21:00)
[2017-05-23] MEDS: REMOVE OLD NICODERM (NICOTINE) PATCH T-DERMAL SCH (21:00)
[2017-05-23] MEDS: MIRTAZAPINE 15 MG TAB PO SCH (21:16)
[2017-05-23] MEDS: ATORVASTATIN 20 MG TAB PO SCH (21:16)
[2017-05-23] MEDS: diphenhydrAMINE HCL 50 MG CAP PO SCH (21:16)
[2017-05-23] MEDS: ALBUTEROL SULFATE 90 MCG/ACT HFA 18 GM INHALER INH PRN (22:38)
[2017-05-24] MEDS: hydrOXYzine HCL 50 MG TAB PO PRN (02:10)
[2017-05-24] MEDS: IBUPROFEN 800 MG TAB PO PRN (06:29)
[2017-05-24] MEDS: INSULIN ASPART SUPPLEMENTAL SCALE SQ SCH ×2 (07:00→11:00)
[2017-05-24] MEDS: FOLIC ACID 1 MG TAB PO SCH (08:53)
[2017-05-24] MEDS: MULTIVITAMIN TAB PO SCH (08:53)
[2017-05-24] MEDS: cloNIDine HCL 0.1 MG TAB PO SCH (08:53)
[2017-05-24] MEDS: metFORMIN HCL 500 MG TAB PO SCH ×2 (08:53→12:21)
[2017-05-24] MEDS: LISINOPRIL 20 MG TAB PO SCH (08:54)
[2017-05-24] MEDS: risperiDONE 1 MG TAB PO SCH (08:54)
[2017-05-24] MEDS: THIAMINE HCL 100 MG TAB PO SCH (08:54)
[2017-05-24] MEDS: NICOTINE 21 MG/24 HR PATCH T-DERMAL SCH (08:54)
[2017-05-24] MEDS: LIDOCAINE HCL 5% PATCH T-DERMAL SCH (08:57)
[2017-05-24] MEDS: ALBUTEROL SULFATE 90 MCG/ACT HFA 18 GM INHALER INH PRN (09:37)
[2017-05-24] MEDS ORDERED: FOLI1TAB6 PO (13:03)
[2017-05-24] MEDS ORDERED: VENTAER INH (13:03)
[2017-05-24] MEDS ORDERED: MIRTA15 PO (13:03)
[2017-05-24] MEDS ORDERED: RISP1 PO (13:03)
--- NOTE | 2017-05-24 13:10 | HHI.DS ---
Psychiatry Discharge Summary Inpatient Psychiatric care?: Yes Advance Directive: No Reason Not Provided: . Mental Health AdvanceDirective: No Health Care Proxy: No Admission Admission Date May 16, 2017 at 14:38 Admission Diagnosis: (1) Schizoaffective disorder, depressive type ICD Code: F25.1 - Schizoaffective disorder, depressive type (2) History of alcohol abuse ICD Code: Z87.898 - Personal history of other specified conditions Brief History Patient is a 62-year-old white male who initially comes to the emergency department under Gomez act by the [place] [employer] dated 05/13/17 at 11:25 AM that document reviewed essentially is stating upon officers arrival Amor Griffiths explained to officers that he wanted to take his own life. Mr. Griffiths stated his was not worth it anymore and he wished to and his life. Mr. Bradshaw is prescribed medications for bipolar and schizoaffective however he has not been taking the medication Amor Griffiths stated to officers he had been drinking earlier in the day patient was initially admitted to the medical unit 2 05/15/17 under visit [id number]. It appears there is no urine toxicology her blood alcohol level drawn. This consultation by Dr. Hughes recommended transfer to the psychiatric unit when medically cleared. Of interest patient has records going back a number of years with us the laboratories have been reviewed by me since July 2008 patient said 7 blood alcohol levels drawn that range from 229 to 477. Patient also had orthopedic consultation on that visit. Recommendation was for him to follow-up with shoulder problems as an outpatient. At the present time patient sitting quietly in his room with nurse Sina. Says he is at the end of his rope life is not worth living, he has no family, no future, though acknowledges also his last drink was less than a week ago. Had been drinking daily for a few months prior to that. Acknowledged a.m. drinking, so low drinking, blacking out, passing out, he does have a history of detox though none more recent than 10 years ago at [facility]. He states his had at least 3 of 4 DUIs with incarcerations associated with them. He does acknowledge past psychiatric history saying he has been a client at [facility] but not since around 10 years ago. He states he has been kicked out of his apartment. At the present time he is homeless. He acknowledges continued suicidal thoughts, he acknowledges vague visual perceptual abnormalities of lites and perhaps birds or insects, he also acknowledges vague auditory hallucinations. We did discuss medications. Patient states she has been on multiple medications in the past. He states he was on Seroquel in the past was involved with a class action suit against that drug was awarded some type of financial settlement. We will start the patient on Remeron 15 mg at at bedtime he does complain of some insomnia. We will add Respinol 1 mg a.m. in the morning since he states he did do fairly well on that in the past. Will refrain from any benzodiazepines or opiates at the present time considering his significant addictions history. Patient did state he was a polysubstance abuser 15-20+ years ago though denying intravenous drug use. He states she will would like to in some type of her program. We did discuss [facility]. He states he might be interested in that. Thus will be admitted at this time I feel he meets criteria for involuntary psychiatric hospitalization I will do first opinion requests a second opinion though the hospitalist continue the consultation willingness also The patient is a 62 year old man, domiciled alone, single, no kids, on disability with psychiatric history of schizoaffective disorder, bipolar type , 2 previous psychiatric hospitalizations, he has been Gomez acted before due to alcohol related issues, suicidal attempts, no established outpatient care, no psychotropics at this moment, he has been psychiatrically in [place] in the past due to alcohol intoxication and suicidal ideation, with history medical of hypertension,diabetes,dyslipidemia and COPD who was brought to ER under goemz act - with suicidal thoughts.he says that he's depressed, tired and start to drink a bit recently. he says that his last drink was last night. he's complaining of some lower extremity muscle spasm and some nausea. He was seen today for second opinion. On psychiatric evaluation today patient is found in his bed, he seems to be very distant, with marked psychomotor retardation, lack affect, objectively depressed. Patient reports that he has been increasingly drinking alcohol in the last month after a long period of sobriety. Patient says that he has been thinking seriously in ending his life and committed suicide by hanging or jumping in front of a car. Patient says the life is not worth living anymore and he has been increasingly feeling alone, detach from the society, with decreased functionality due to medical problems, with sense of worthlessness, helplessness, hopelessness, continues suicidal ideation. Yesterday he was about to lose control and he decided to call the police and give himself a chance. Patient also reports not sleeping at all, decreased weight, anhedonia, decreased level of energy "I just don't want to stick around anymore". Patient denies homicidal ideation, he denies visual and auditory hallucinations. She is unable to identify any acute stressor, but he says that his living environment is "very toxic". No protective factors identified at this moment. Patient denies visual and auditory hallucinations. Reports increased paranoia of mistrusting people around him. Oriented 3, no attention deficit, no fluctuation of consciousness. Patient denies the use of illicit drugs, increased alcohol use, he fails to quantify how much alcohol she is taking daily, just says "a lot". He reports past withdrawal symptoms, he also has been in rehabs/detox in the past,. Tobacco Use In Past 30 Days: 5 or More Cigarettes/Day Alcohol Use: 4 or More Times Per Week Hospital Course Patient's hospital course was uneventful issues no significant symptoms of withdrawal. His depression and suicidal ideation so resolved as he became compliant with his medication and with the efforts of the staff and his participation in milieu led him showing some processing of options available to him the community. Especially sober houses. He is now found himself an appropriate placement in the community. Now denies suicidality homicidality voices or visions. Thus patient to be discharged today to himself with Rx 1 month all of [facility] act outpatient medication services, also referral to AA referral to [facility] for voluntary outpatient substance abuse assessment Results Blood Pressure 157 / 70 Vital Signs Date Time Temp Pulse Resp B/P (MAP) Pulse Ox O2 Delivery O2 Flow Rate FiO2 05/23/17 18:40 98.1 61 17 157/70 (99) 98 Laboratory Results Test 05/17/17 11:14 Cholesterol Level 104 MG/DL (120-200) HDL Cholesterol 32.0 MG/DL (40.0-60.0) Hemoglobin A1c 5.8 % (4.3-6.0) LDL Cholesterol 37 MG/DL (0-99) Triglycerides Level 173 MG/DL (42-150) Summary of Procedures None done Pending results at discharge: No Medications # of Antipsychotic meds at D/C: 1 Approp Antipsych med options 1 - Minimum of three failed multiple trials of monotherapy. 2 - Documented plan to taper to monotherapy due to previous use of multiple meds OR cross-taper in progress at D/C. 3 - Documentation of augmentation of Clozapine. 4 - Justification other than those listed in allowable values 1-3, document here : Discharge Discharge Date: May 24, 2017 Discharge Diagnosis: (1) Schizoaffective disorder, depressive type Diagnosis: Principal ICD Code: F25.1 - Schizoaffective disorder, depressive type Status: Acute (2) History of alcohol abuse Diagnosis: Secondary ICD Code: Z87.898 - Personal history of other specified conditions Status: Acute Mental Status Exam at Disch Alert oriented white male. He is normoactive. Mood is euthymic to somewhat irritable with good range intensity of his affect. Speech rate and rhythm within normal limits of thought disorders. No auditory or visual hallucinations. No delusions. Insight and judgment is poor. Cognition grossly intact Pt Condition on Discharge: Stable Discharge Disposition: Discharge Home Discharge Instructions Diet Instructions: As Tolerated, No Restrictions Activities you can perform: Regular-No Restrictions Scheduled Appointment: [facility] Appointment Date: May 25, 2017 Appointment Time: 7:30 a.m. Discharge Time > 30 minutes Discharge/Advance Care Plan Health Problems: (1) Schizoaffective disorder, depressive type (2) History of alcohol abuse Goals to promote your health * To prevent worsening of your condition and complications * To maintain your health at the optimal level Directions to meet your goals Take your medications as prescribed Follow your dietary instruction Follow activity as directed Keep your appointments as scheduled Take your immunizations and boosters as scheduled If your symptoms worsen call your PCP, if no PCP go to Urgent Care Center or Emergency Room For 26/04 questions related to your inpatient stay or results of tests pending at discharge, please contact Dr. Johnnie Sosa at Smoking is Dangerous to Your Health. Avoid second hand smoking Johnnie Sosa MD May 24, 2017 13:10
== END 2017-05-24 13:20 | disposition home or self-care (01) | DRG 885 ==
LOC: H260 14:38
PROVIDERS: ADMIT Psychiatry & Neurology Psychiatry; ATTEND Psychiatry & Neurology Psychiatry
DX: F25.1 Schizoaffective disorder, depressive type (principal); R45.851 Suicidal ideations; E11.9 Type 2 diabetes mellitus without complications; Z59.0 Homelessness; G47.00 Insomnia, unspecified; G89.29 Other chronic pain; M25.512 Pain in left shoulder; Z87.898 Personal history of other specified conditions; I10 Essential (primary) hypertension; E78.5 Hyperlipidemia, unspecified; J44.9 Chronic obstructive pulmonary disease, unspecified; Z72.0 Tobacco use; Z79.4 Long term (current) use of insulin; R51 Headache; R19.7 Diarrhea, unspecified; R11.0 Nausea
CPT/HCPCS: 80048; 80061; 82948; 83036; J1630; Q0163

== ENCOUNTER 2017-07-22 17:33 | Inpatient (IN) | payer OTHER, MEDICARE ==
[2017-07-22] VITALS (7 sets, daily range): BP systolic 112–165; BP diastolic 59–83; PULSE 63–73; RESP 14–20; TEMP 97.9–98.6; O2SAT 94–98
[~2017-07-22] VITALS: Ht 182.9 cm; Wt 94.0 kg
[~2017-07-22 17:33] MED LIST changes: -ALBUAER3 INH; -ALPR0.5T3 PO; +FOLI1TAB6 PO; -HYDR-3583 PO; +MIRTA15 PO; +RISP1 PO; +VENTAER INH
[2017-07-22] MEDS ORDERED: SODIUM CHLORID 0.9% 500 ML INJ 500 ML IV ONE (17:45)
[2017-07-22] MEDS ORDERED: SODIUM CHLORIDE 0.9% FLUSH 10 ML FLUSH IVF PRN (17:45)
--- NOTE | 2017-07-22 18:03 | RADRPT ---
EXAM DATE/TIME: 07/22/2017 17:51 [facility] COMPARISON: CHEST SINGLE AP, May 13, 2017, 13:45. INDICATIONS : Dizziness for 3 days. MEDICAL HISTORY : Hypertension. Chronic obstructive pulmonary disease. Diabetes mellitus type II. Asthma. SURGICAL HISTORY : None. ENCOUNTER: Initial ACUITY: 3 days PAIN SCORE: 0/10 LOCATION: Bilateral chest FINDINGS: A single view of the chest demonstrates the lungs to be symmetrically aerated without evidence of mas s, infiltrate or effusion. The cardiomediastinal contours are unremarkable. Osseous structures are intact. CONCLUSION: No acute disease. No significant change has occurred. Bebeto Hollingsworth MD on July 22, 2017 at 18:02 Board Certified Radiologist. This report was verified electronically.
[2017-07-22 18:04] LABS: AUTOMATED NEUTROPHIL # 4.7 TH/MM3 (1.8-7.7); BASOPHIL # 0.1 TH/MM3 (0-0.2); BASOPHIL % 0.8 % (0.0-2.0); EOSINOPHIL # 0.3 TH/MM3 (0-0.4); HEMATOCRIT 38.1 % (39.0-51.0); HEMO FLAGS DIFF FINAL; LYMPH % 25.8 % (9.0-44.0); LYMPHOCYTE # 2.1 TH/MM3 (1.0-4.8); MEAN CORPUSCULAR HEMOGLOBIN 34.4 PG (27.0-34.0); MEAN CORPUSCULAR HGB CONC 35.1 % (32.0-36.0); MONO % 10.7 % (0.0-8.0); NEUT % 58.7 % (16.0-70.0); PLATELET COUNT 138 TH/MM3 (150-450); RED BLOOD COUNT 3.88 MIL/MM3 (4.50-5.90); RED CELL DISTRIBUTION WIDTH 13.6 % (11.6-17.2)
[2017-07-22 18:12] LABS: APTT (PATIENT) 26.7 SEC (24.3-30.1); PROTHROMBIN TIME - PATIENT 11.4 SEC (9.8-11.6)
[2017-07-22 18:25] LABS: ANION GAP 7 MEQ/L (5-15); BICARBONATE 25.3 MEQ/L (21.0-32.0); BLOOD UREA NITROGEN 19 MG/DL (7-18); CHLORIDE 105 MEQ/L (98-107); CREATINE KINASE 134 U/L (39-308); GLOMERULAR FILTRATION RATE 72 ML/MIN (>89); MAGNESIUM 1.4 MG/DL (1.5-2.5); SODIUM (NA) 137 MEQ/L (136-145)
[2017-07-22 18:39] LABS: CKMB 3.9 NG/ML (0.5-3.6)
--- NOTE | 2017-07-22 18:47 | PD ---
HPI Chief Complaint: Dizziness Time Seen by Provider: 17:42 Travel History International Travel<30 days: No Contact w/Intl Traveler<30days: No Traveled to known affect area: No History of Present Illness HPI 62-year-old male was brought from [facility] by EMS after he started complaining of lightheadedness and dizziness every time he stood up and they checked his pulse and it was low in the 30s. They called EMS and when they arrived and did a 12-lead EKG it was in bigeminy. However palpable pulse was in the 30s. Patient says he's been getting on and off sensation of lightheadedness for past 2 days but worse today. Patient is in [facility] for alcohol detox. He had taken his last Librium 2 days ago. He is awake and answering questions currently. He says he feels little lightheaded. His blood pressure was 132 systolic. He has not had these symptoms in the past. Patient is a smoker one pack per day. He says his last drink of alcohol was one week ago. [facility] Past Medical History Narrative Medical List of his past medical, surgical, social and family history is reviewed from the nursing note. Arthritis: No Asthma: Yes (CHILDHOOD) Bipolar Disorder: Yes Anxiety: Yes Depression: Yes Heart Rhythm Problems: No Cancer: No Cardiovascular Problems: Yes High Cholesterol: Yes Chest Pain: No Congestive Heart Failure: No COPD: No Cerebrovascular Accident: No Diabetes: Yes Patient Takes Glucophage: No Diminished Hearing: No GERD: No Genitourinary: No Headaches: No Hepatitis: No Hiatal Hernia: No Hypertension: Yes Kidney Stones: No Musculoskeletal: No Neurologic: No Psychiatric: Yes (Pt states he has bipolar schizoaffective disorder) Reproductive: Yes (COPD) Respiratory: Yes Immunizations Current: Yes Migraines: No Myocardial Infarction: No Renal Failure: No Seizures: No Sickle Cell Disease: No Sleep Apnea: No Ulcer: No Tetanus Vaccination: > 5 Years Influenza Vaccination: No PNEUMOCCOCAL Vaccine (Year): 2 ?: Not Past Surgical History Abdominal Surgery: No Appendectomy: No Cardiac Surgery: No Cholecystectomy: No Ear Surgery: No Endocrine Surgery: No Eye Surgery: No Genitourinary Surgery: No Gynecologic Surgery: No Joint Replacement: No Neurologic Surgery: Yes (NECK SURGERY; CURRENTLY DENIES) Oral Surgery: No Pacemaker: No Thoracic Surgery: No Social History Alcohol Use: Yes (STATES HE STARTED DRINKS SEVERAL TIMES A MONTH) Tobacco Use: Yes (1 PPD) Substance Use: No Allergies-Medications (Allergen,Severity, Reaction): Coded Allergies: No Known Allergies (Verified , 05/13/17) Comments No known allergies. Reported Meds & Prescriptions Reported Meds & Active Scripts Active Risperdal (Risperidone) 1 Mg Tab 1 Mg PO DAILY Mirtazapine 15 Mg Tab 30 Mg PO HS Folic Acid 1 Mg Tablet 1 Mg PO DAILY Ventolin Hfa 18 GM Inh (Albuterol Sulfate) 90 Mcg/Act Aer 2 Puff INH Q8HR PRN Thera/Beta-Carotene (Multiple Vitamin) 1 Tab Tab 1 Tab PO DAILY 30 Days Gnp Vitamin B-1 (Thiamine HCl) 100 Mg Tab 100 Mg PO DAILY 30 Days Reported Lisinopril 20 Mg Tab 20 Mg PO DAILY Atorvastatin (Atorvastatin Calcium) 20 Mg Tab 20 Mg PO HS Clonidine (Clonidine HCl) 0.1 Mg Tab 0.1 Mg PO BID Metformin (Metformin HCl) 500 Mg Tab 500 Mg PO TID With meals Narrative Medication List of his home medications reviewed from the nursing note. Review of Systems Except as stated in HPI: all other systems reviewed are Neg Neurologic: Positive: Dizziness Physical Exam Narrative GENERAL: Awake, alert, moderate distress SKIN: Focused skin assessment warm/dry. HEAD: Atraumatic. Normocephalic. EYES: Pupils equal and round. No scleral icterus. No injection or drainage. ENT: No nasal bleeding or discharge. Mucous membranes pink and moist. NECK: Trachea midline. No JVD. CARDIOVASCULAR: Regular rate and rhythm. Bradycardia. No murmur appreciated. RESPIRATORY: No accessory muscle use. Clear to auscultation. Breath sounds equal bilaterally. GASTROINTESTINAL: Abdomen soft, non-tender, nondistended. Hepatic and splenic margins not palpable. MUSCULOSKELETAL: No obvious deformities. No clubbing. No cyanosis. No edema. NEUROLOGICAL: Awake and alert. No obvious cranial nerve deficits. Motor grossly within normal limits. Normal speech. PSYCHIATRIC: Appropriate mood and affect; insight and judgment normal. Data Data Last Documented VS Vital Signs Date Time Temp Pulse Resp B/P (MAP) Pulse Ox O2 Delivery O2 Flow Rate FiO2 07/22/17 18:04 64 142/64 (90) 133/78 (96) 07/22/17 18:02 18 98 Room Air 07/22/17 18:02 98.1 Orders Orders Electrocardiogram (07/22/17 17:43) Basic Metabolic Panel (Bmp) (07/22/17:43) B-Type Natriuretic Peptide (07/22/17:43) Ckmb (Isoenzyme) Profile (07/22/17 17:43) Complete Blood Count With Diff (07/22/17:43) Magnesium (Mg) (07/22/17:43) Prothrombin Time / Inr (Pt) (07/22/17:43) Act Partial Throm Time (Ptt) (07/22/17:43) Troponin I (07/22/17:43) Chest, Single Ap (07/22/17:43) Ecg Monitoring (07/22/17:43) Bilateral Bp Monitoring (07/22/17:43) Iv Access Insert/Monitor (07/22/17:43) Oximetry (07/22/17:43) Oxygen Administration (07/22/17:43) Sodium Chloride 0.9% Flush (Ns Flush) (07/22/17 17:45) Sodium Chlorid 0.9% 500 Ml Inj (Ns 500 M (07/22/17 17:45) Orthostatic Vital Signs (07/22/17 17:43) CKMB (07/22/17 17:54) CKMB% (07/22/17 17:54) Npo After Midnight W/ Po Meds (07/22/17 Dinner) Labs Laboratory Tests Test 07/22/17 17:54 White Blood Count 8.0 TH/MM3 Red Blood Count 3.88 MIL/MM3 Hemoglobin 13.4 GM/DL Hematocrit 38.1 % Mean Corpuscular Volume 98.0 FL Mean Corpuscular Hemoglobin 34.4 PG Mean Corpuscular Hemoglobin Concent 35.1 % Red Cell Distribution Width 13.6 % Platelet Count 138 TH/MM3 Mean Platelet Volume 9.5 FL Neutrophils (%) (Auto) 58.7 % Lymphocytes (%) (Auto) 25.8 % Monocytes (%) (Auto) 10.7 % Eosinophils (%) (Auto) 4.0 % Basophils (%) (Auto) 0.8 % Neutrophils # (Auto) 4.7 TH/MM3 Lymphocytes # (Auto) 2.1 TH/MM3 Monocytes # (Auto) 0.9 TH/MM3 Eosinophils # (Auto) 0.3 TH/MM3 Basophils # (Auto) 0.1 TH/MM3 CBC Comment DIFF FINAL Differential Comment Prothrombin Time 11.4 SEC Prothromb Time International Ratio 1.0 RATIO Activated Partial Thromboplast Time 26.7 SEC Blood Urea Nitrogen 19 MG/DL Creatinine 1.05 MG/DL Random Glucose 103 MG/DL Calcium Level 8.2 MG/DL Magnesium Level 1.4 MG/DL Sodium Level 137 MEQ/L Potassium Level 5.0 MEQ/L Chloride Level 105 MEQ/L Carbon Dioxide Level 25.3 MEQ/L Anion Gap 7 MEQ/L Estimat Glomerular Filtration Rate 72 ML/MIN Total Creatine Kinase 134 U/L Creatine Kinase MB 3.9 NG/ML Troponin I LESS THAN 0.02 NG/ML B-Type Natriuretic Peptide 219 PG/ML MDM Medical Decision Making Medical Screen Exam Complete: Yes Emergency Medical Condition: Yes Medical Record Reviewed: Yes Interpretation(s) Twelve-lead EKG is reviewed by me. Bigeminy. Heart rate of 66 bpm including the bigeminy. Differential Diagnosis Sick sinus syndrome, electrolyte abnormality, ACS, symptomatic bradycardia Narrative Course 6:55 PM blood test results of back and within acceptable limit. I discussed with Dr. Garcia who is on-call for cardiology. He agrees with admission of the patient and wants the patient and CICU. Once the patient to be nothing by mouth after midnight. Awaiting for the hospitalist to call back. Patient needs to be worked up for possible pacemaker. He wants any of the medications at a rate limiting to be withheld including clonidine. Critical Care Narrative Aggregate critical care time was 30 minutes. Time to perform other separately billable procedures was not included in the critical care time. My time did not include minutes spent treating any other patients simultaneously or on activities that did not directly contribute to the patient's treatment. The services I provided to this patient were to treat and/or prevent clinically significant deterioration that could result in: Symptomatic bradycardia I provided critical care services requiring my management, as noted below: Chart data review, documentation time, medication orders and management, vital sign assessments/reviewing monitor data, ordering and reviewing lab tests, ordering and interpreting/reviewing x-rays and diagnostic studies, care of the patient and discussion of the patient with the admitting physicians. Procedures EKG Prior to Arrival: Yes Physician Communication Physician Communication Dr. Garcia Diagnosis Primary Impression: Symptomatic bradycardia Admitting Information Admitting Physician Requests: Admit Renny Suárez MD Jul 22, 2017 18:47
[2017-07-22] MEDS ORDERED: TYLE325T PO (18:53)
[2017-07-22] MEDS ORDERED: VIST50CA PO (18:53)
[2017-07-22] MEDS ORDERED: IBUP800T23 PO (18:53)
[2017-07-22] MEDS ORDERED: CHLO25CA9 PO (18:53)
[2017-07-22] MEDS ORDERED: ACETAMINOPHEN 325 MG TAB PO PRN (19:30)
[2017-07-22] MEDS ORDERED: SODIUM CHLORIDE 0.9% FLUSH 10 ML FLUSH IV FLUSH PRN (19:30)
[2017-07-22] MEDS ORDERED: NALOXONE HCL 0.4 MG/ML AMP IV PUSH PRN (19:30)
--- NOTE | 2017-07-22 20:27 | HHI.HP ---
[facility] Physician Unknown Admission Diagnosis Symptomatic Bradycardia Diagnoses: Travel History International Travel<30 Days: No Contact w/Intl Traveler <30 Da: No Traveled to Known Affected Are: No History of Present Illness for about 2-3 days dizzy, nausea, near syncope, felt very weak no chest pains no shortness of breath have had heart palpitations in the past, but was told mostly skipped beats pt states he takes clonidine to me takes metformin , folic acid, clonidine 0.2mg po once a day have been on this clonidine dose for past one year or so nathen tripathi 7 days now for etoh detox denies any current withdrawal symptoms Review of Systems Except as stated in HPI: all other systems reviewed are Neg Past Family Social History Past Medical History htn dm skipped beats- no holter monitor copd neuropathy Past Surgical History none - just stitches Allergies: Coded Allergies: No Known Allergies (Verified , 07/22/17) Family History dad just from pneumonia, dm mom- lymphoma Social History smokes about half a pack a day on etoh detox cocaine occasional- just a fluke Physical Exam Vital Signs Vital Signs Date Time Temp Pulse Resp B/P (MAP) Pulse Ox O2 Delivery O2 Flow Rate FiO2 07/22/17 19:29 99 Nasal Cannula 2.00 07/22/17 18:59 97.9 63 20 157/64 (95) 98 Room Air 07/22/17 18:04 64 142/64 (90) 133/78 (96) 07/22/17 18:02 18 98 Room Air 07/22/17 18:02 98 Room Air 07/22/17 18:02 98.1 63 18 142/64 (90) 98 Room Air 07/22/17 18:00 68 18 131/68 (89) 69 18 118/59 (78) 89 18 133/83 (100) Physical Exam GENERAL: This is a well-nourished, well-developed patient, in no apparent distress. SKIN: No rashes, ecchymoses or lesions. Cool and dry. HEAD: Atraumatic. Normocephalic. No temporal or scalp tenderness. EYES: Pupils equal round and reactive. Extraocular motions intact. No scleral icterus. No injection or drainage. ENT: Nose without bleeding, purulent drainage or septal hematoma. Throat without erythema, tonsillar hypertrophy or exudate. Uvula midline. Airway patent. NECK: Trachea midline. No JVD or lymphadenopathy. Supple, nontender, no meningeal signs. CARDIOVASCULAR: Regular rate and rhythm without murmurs, gallops, or rubs. RESPIRATORY: Clear to auscultation. Breath sounds equal bilaterally. No wheezes , rales, or rhonchi. GASTROINTESTINAL: Abdomen soft, non-tender, nondistended. No hepato-splenomegaly , or palpable masses. No guarding. MUSCULOSKELETAL: Extremities without clubbing, cyanosis, or edema. No joint tenderness, effusion, or edema noted. No calf tenderness. Negative Homans sign bilaterally. NEUROLOGICAL: Awake and alert. Cranial nerves II through XII intact. Motor and sensory grossly within normal limits. Five out of 5 muscle strength in all muscle groups. Normal speech. Laboratory Laboratory Tests Test 07/22/17 17:54 White Blood Count 8.0 Red Blood Count 3.88 Hemoglobin 13.4 Hematocrit 38.1 Mean Corpuscular Volume 98.0 Mean Corpuscular Hemoglobin 34.4 Mean Corpuscular Hemoglobin Concent 35.1 Red Cell Distribution Width 13.6 Platelet Count 138 Mean Platelet Volume 9.5 Neutrophils (%) (Auto) 58.7 Lymphocytes (%) (Auto) 25.8 Monocytes (%) (Auto) 10.7 Eosinophils (%) (Auto) 4.0 Basophils (%) (Auto) 0.8 Neutrophils # (Auto) 4.7 Lymphocytes # (Auto) 2.1 Monocytes # (Auto) 0.9 Eosinophils # (Auto) 0.3 Basophils # (Auto) 0.1 CBC Comment DIFF FINAL Differential Comment Prothrombin Time 11.4 Prothromb Time International Ratio 1.0 Activated Partial Thromboplast Time 26.7 Blood Urea Nitrogen 19 Creatinine 1.05 Random Glucose 103 Calcium Level 8.2 Magnesium Level 1.4 Sodium Level 137 Potassium Level 5.0 Chloride Level 105 Carbon Dioxide Level 25.3 Anion Gap 7 Estimat Glomerular Filtration Rate 72 Total Creatine Kinase 134 Creatine Kinase MB 3.9 Troponin I LESS THAN 0.02 B-Type Natriuretic Peptide 219 Result Diagram: 07/22/17 17507/22/171753 Imaging Last 48 hours Impressions Chest X-Ray 07/22/17 0040 Signed Impressions: Service Date/Time: July 17:51 - CONCLUSION: No acute disease. No significant change has occurred. MD Jolynn Galindo VTE Risk Assessment Kamrini Risk Assessment Model Point Value = 1 Point Value = 2 Point Value = 3 Point Value = 5 Age 41-60 Minor surgery BMI > 25 kg/m2 Swollen legs Varicose veins or History of unexplained or recurrent spontaneous Oral contraceptives or hormone replacement Sepsis (< 1 month) Serious lung disease, including pneumonia (< 1 month) Abnormal pulmonary function Acute myocardial infarction Congestive heart failure (< 1 month) History of inflammatory bowel disease Medical patient at bed rest Age 61-74 Arthroscopic surgery Major open surgery (> 45 min) Laparoscopic surgery (> 45 min) Malignancy Confined to bed (> 72 hours) Immobilizing plaster cast Central venous access Age >= 75 History of VTE Family history of VTE Factor V Leiden Prothrombin [id number] Lupus anticoagulant Anticardiolipin antibodies Elevated serum homocysteine Heparin-induced thrombocytopenia Other congenital or acquired thrombophilia Stroke (< 1 month) Elective arthroplasty Hip, pelvis, or leg fracture Acute spinal cord injury (< 1 month) Prophylaxis Regimen Total Risk Factor Score Risk Level Prophylaxis Regimen 0-1 Low Early ambulation 2 Moderate Order ONE of the following: *Sequential Compression Device (SCD) *Heparin 5000 units SQ BID 3-4 Higher Order ONE of the following medications: *Heparin 5000 units SQ TID *Enoxaparin/Lovenox 40 mg SQ daily (WT < 150 kg, CrCl > 30 mL/min) *Enoxaparin/Lovenox 30 mg SQ daily (WT < 150 kg, CrCl > 10-29 mL/min) *Enoxaparin/Lovenox 30 mg SQ BID (WT < 150 kg, CrCl > 30 mL/min) AND/OR *Sequential Compression Device (SCD) 5 or more Highest Order ONE of the following medications: *Heparin 5000 units SQ TID (Preferred with Epidurals) *Enoxaparin/Lovenox 40 mg SQ daily (WT < 150 kg, CrCl > 30 mL/min) *Enoxaparin/Lovenox 30 mg SQ daily (WT < 150 kg, CrCl > 10-29 mL/min) *Enoxaparin/Lovenox 30 mg SQ BID (WT < 150 kg, CrCl > 30 mL/min) AND *Sequential Compression Device (SCD) Physician Certification Order for Inpatient Services The services are ordered in accordance with Medicare regulations or non- Medicare payer requirements, as applicable. In the case of services not specified as inpatient-only, they are appropriately provided as inpatient services in accordance with the 2-midnight benchmark. days is the estimated time the patient will need to remain in the hospital, assuming treatment plan goals are met and no additional complications. Charbel Farah MD Jul 22, 2017 20:27
[2017-07-22] MEDS: MAGNESIUM SULFATE 1 GM PREMIX 100 ML IV SCH ×2 (20:49→21:00)
[2017-07-22] MEDS ORDERED: ATORVASTATIN 20 MG TAB PO SCH (21:00)
[2017-07-22] MEDS ORDERED: GLUCAGON 1 MG/ML VIAL OTHER PRN (21:00)
[2017-07-22] MEDS ORDERED: DEXTROSE 50% IN WATER 50 ML VIAL(D50) IV PUSH PRN (21:00)
[2017-07-22] MEDS ORDERED: RESP: ALBUTEROL 2.5 MG/IPRATROPIUM 0.5 MG NEB (PRN) NEB (21:00)
[2017-07-22] MEDS: SODIUM CHLORIDE 0.9% FLUSH 10 ML FLUSH IV FLUSH SCH (21:00)
[2017-07-22] MEDS: ACETAMINOPHEN/HYDROcodone 325 MG/7.5 MG TAB PO PRN (22:12)
[2017-07-23] VITALS (20 sets, daily range): BP systolic 129–145; BP diastolic 61–68; PULSE 34–78; RESP 16; TEMP 97.5–98.4; O2SAT 94–96
[2017-07-23 00:37] LABS: CREATINE KINASE 108 U/L (39-308)
[2017-07-23] MEDS: ACETAMINOPHEN/HYDROcodone 325 MG/7.5 MG TAB PO PRN ×3 (04:16→17:00)
[2017-07-23 05:53] LABS: ALT (GPT) 29 U/L (12-78); ANION GAP 6 MEQ/L (5-15); AST (GOT) 18 U/L (15-37); BICARBONATE 25.9 MEQ/L (21.0-32.0); BLOOD UREA NITROGEN 19 MG/DL (7-18); CHLORIDE 107 MEQ/L (98-107); GLOMERULAR FILTRATION RATE 80 ML/MIN (>89); MAGNESIUM 1.7 MG/DL (1.5-2.5); POTASSIUM 4.4 MEQ/L (3.5-5.1); SODIUM (NA) 139 MEQ/L (136-145)
[2017-07-23 05:58] LABS: ALKALINE PHOSPHATASE 61 U/L (45-117); TOTAL BILIRUBIN ADULT 0.3 MG/DL (0.2-1.0)
[2017-07-23 05:59] LABS: CREATINE KINASE 100 U/L (39-308)
[2017-07-23] MEDS: SODIUM CHLORIDE 0.9% FLUSH 10 ML FLUSH IV FLUSH SCH (08:59)
[2017-07-23] MEDS ORDERED: LISINOPRIL 20 MG TAB PO SCH (09:00)
[2017-07-23] MEDS ORDERED: MULTIVITAMIN TAB PO SCH (09:00)
[2017-07-23] MEDS ORDERED: FOLIC ACID 1 MG TAB PO SCH (09:00)
[2017-07-23] MEDS ORDERED: THIAMINE HCL 100 MG TAB PO SCH (09:00)
--- NOTE | 2017-07-23 10:35 | MB ---
cc: ARIS JENKINS DATE OF CONSULTATION: 07/23/2017 DATE OF : 1955 REASON FOR CONSULTATION Dizziness and bradycardia. HISTORY OF PRESENT ILLNESS 62-year-old male with past medical history significant for alcohol abuse on detox, diabetes with severe neuropathy, hypertension, hyperlipidemia, COPD, who presented to the emergency department via EMS yesterday complaining of lightheadedness and dizziness. According to reports the patient's heart rate was checked and his pulse was in the low 30s for which he was sent to the emergency department. Here in the emergency department EKG revealed sinus rhythm with ectopy, bigeminy and adequate blood pressure. He denies chest pain , shortness of breath, PND, leg edema, palpitations, syncope, presyncope, fevers , chills, nausea, vomiting or recent diarrhea. REVIEW OF SYSTEMS Negative except for what is mentioned in the HPI. PAST MEDICAL HISTORY 1. Asthma. 2. Bipolar disorder. 3. Anxiety. 4. Depression. 5. Neuropathy. 6. Hypertension. 7. Hyperlipidemia. 8. Diabetes. PAST SURGICAL HISTORY Neck surgery reported, no specifics. SOCIAL HISTORY He is a severe alcohol drinker, also tobacco abuse. Denies illicit drug use, however, there is report of cocaine use. ALLERGIES No known drug allergies. MEDICATIONS Home medications: 1. Risperdal. 2. Mirtazapine. 3. Folic acid. 4. Ventolin inhalers. 5. Multivitamin. 6. Thiamine. 7. Lisinopril. 8. Atorvastatin. 9. Clonidine. 10.Metformin. PHYSICAL EXAMINATION VITAL SIGNS: Temperature 97, respiratory rate 16, heart rate 65. O2 sat 100% in room air. Blood pressure 130/64. GENERAL: Awake, alert and oriented x3 in no acute distress. NECK: No JVD. No carotid bruits. HEART: Regular rate and rhythm. No murmurs, rubs or gallops. LUNGS: Clear to auscultation bilaterally. No wheezes, rhonchi or rales. ABDOMEN: Benign. EXTREMITIES: No cyanosis. No edema. Pulses diminished throughout. LABORATORY Hemoglobin 13, hematocrit 38, platelet count 138. INR 1. Sodium 139, potassium 4.4, BUN 19, creatinine 0.96, magnesium 1.7 trending up from 1.4, calcium 8.2. Troponin less than 0.02 x3. BNP 219. IMAGING Chest x-ray: No acute cardiopulmonary process. EKG: Sinus rhythm with bigeminy. ASSESSMENT AND PLAN 62-year-old male with a history of diabetes, neuropathy, alcohol abuse, hypertension, hyperlipidemia, presenting with dizziness and lightheadedness. The patient has remained hemodynamically stable with no CV complaints. He has ruled out by cardiac markers. Per patient he does not follow with cardiology. Heart rate was adequate with chronotropic competence. No tachy-keisha arrhythmias seen on the telemetry for overnight or during ambulation. He was unsteady on his feet for which he reports that is his baseline given his severe neuropathy. He did complain of dizziness, however, no blood pressure changes or chest pain, shortness of breath or cardiac complaints. The reason for the dizziness is unclear, however, bigeminy would be an unlikely cause of his symptoms. At this time he does have some electrolyte abnormalities which should be fixed. RECOMMENDATIONS -Avoid electrolyte abnormalities -2-D echocardiogram. -Avoid sedatives. -Continue medications for hypertension and hyperlipidemia. -Upon discharge the patient should follow with cardiology -Holter monitor upon discharge. Thank you for the opportunity to take part in the care of this patient. Will be available on a p.r.n. basis for any other questions or concerns. Aris Jenkins MD WAITSTAFF CAPTAIN/BT /9:59 AM /10:18 AM EUGENIO
--- NOTE | 2017-07-23 13:24 | HHI.PR ---
Subjective Remarks Follow-up bradycardia 07/23/17-patient seen and examined; ACS ruled out per protocol and patient is currently in sinus rhythm. Reported some dizziness and lightheadedness and otherwise stable Objective Vitals Vital Signs Date Time Temp Pulse Resp B/P (MAP) Pulse Ox O2 Delivery O2 Flow Rate FiO2 07/23/17 12:00 78 07/23/17 11:14 15 07/23/17 11:00 71 07/23/17 11:00 97.9 71 16 145/67 (93) 95 07/23/17 10:00 62 07/23/17 09:02 16 07/23/17 09:00 68 07/23/17 08:00 65 07/23/17 07:00 65 07/23/17 07:00 98.4 65 16 130/64 (86) 96 07/23/17 06:00 66 07/23/17 05:00 58 07/23/17 04:00 72 07/23/17 03:55 97.6 34 16 129/61 (83) 95 07/23/17 03:00 70 07/23/17 02:00 74 07/23/17 01:00 68 07/23/17 00:00 74 07/22/17 23:30 98.6 73 14 112/64 (80) 94 07/22/17 23:00 72 07/22/17 22:00 98.6 70 16 165/72 (103) 97 07/22/17 22:00 64 07/22/17 21:25 07/22/17 19:29 99 Nasal Cannula 2.00 07/22/17 18:59 97.9 63 20 157/64 (95) 98 Room Air 07/22/17 18:04 64 142/64 (90) 133/78 (96) 07/22/17 18:02 18 98 Room Air 07/22/17 18:02 98 Room Air 07/22/17 18:02 98.1 63 18 142/64 (90) 98 Room Air 07/22/17 18:00 68 18 131/68 (89) 69 18 118/59 (78) 89 18 133/83 (100) I/O 07/22/17 07/22/17 07/22/17 07/23/17 07/23/17 07/23/17 07:00 15:00 23:00 07:00 15:00 23:00 Intake Total 500 ml 480 ml Output Total 700 ml Balance 500 ml -220 ml Intake Oral 480 ml IV Total 500 ml Output Urine Total 700 ml Result Diagram: 07/22/17 1754 07/23/17 0503 Imaging Last Impressions Chest X-Ray 07/22/17 1743 Signed Impressions: Service Date/Time: July 17:51 - CONCLUSION: No acute disease. No significant change has occurred. Bebeto Hollingsworth MD Objective Remarks GENERAL: NAD SKIN: Warm and dry. HEAD: Normocephalic. EYES: No scleral icterus. No injection or drainage. NECK: Supple, trachea midline. No JVD or lymphadenopathy. CARDIOVASCULAR: Regular rate and rhythm without murmurs, gallops, or rubs. RESPIRATORY: Breath sounds equal bilaterally. No accessory muscle use. GASTROINTESTINAL: Abdomen soft, non-tender, nondistended. MUSCULOSKELETAL: No cyanosis, or edema. BACK: Nontender without obvious deformity. No CVA tenderness. A/P Problem List: (1) Symptomatic bradycardia ICD Code: R00.1 - Bradycardia, unspecified Status: Acute (2) History of alcohol abuse ICD Code: Z87.898 - Personal history of other specified conditions Status: Acute (3) Diabetes ICD Code: E11.9 - Diabetes Status: Acute (4) HTN (hypertension) ICD Code: I10 - HTN (hypertension) Status: Acute Assessment and Plan 62-year-old man with Symptomatic bradycardia Resolved ACS ruled out per protocol with serial cardiac enzyme and EKGs 2-D echo pending Appreciate input from cardiology Patient will need Holter monitoring and outpatient follow-up with cardiology Diabetes type 2 Resume metformin and continue sliding scale Hyperlipidemia Resume statin Hypertension Continue outpatient medication including lisinopril DVT prophylaxis: Bilateral SCDs Discharge Planning Discharge patient to home Condition on discharge: Improved Regular Diet as tolerated Ad Erin activity Rx written:none Follow-up with primary care physician in 1 week Follow-up with cardiology Jonh Webber MD Jul 23, 2017 13:24
[2017-07-23] MEDS ORDERED: DEXTROSE 50% IN WATER 50 ML VIAL(D50) IV PUSH PRN (13:30)
[2017-07-23] MEDS ORDERED: GLUCAGON 1 MG/ML VIAL OTHER PRN (13:30)
[2017-07-23] MEDS ORDERED: INSULIN ASPART SUPPLEMENTAL SCALE SQ SCH (17:00)
[2017-07-23] MEDS ORDERED: metFORMIN HCL 500 MG TAB PO SCH (18:00)
--- NOTE | 2017-07-23 18:17 | ECHRPT ---
Indication: hypertensive heart disease CONCLUSIONS Normal left ventricular size. Wall thickness is normal. The left ventricular systolic function is mildly reduced with an estimated ejection fraction in the range of 50%. The right ventricle is mildly dilated. The right atrial size is upper limits of normal. BP: / HR: Rhythm: MEASUREMENTS (Male / Female) Normal Values Technical Quality: 2D ECHO LV Diastolic Diameter PLAX 5.4 cm 4.2 - 5.9 / 3.9 - 5.3 cm LV Systolic Diameter PLAX 4.2 cm IVS Diastolic Thickness 1.1 cm 0.6 - 1.0 / 0.6 - 0.9 cm LVPW Diastolic Thickness 0.8 cm 0.6 - 1.0 / 0.6 - 0.9 cm LV Relative Wall Thickness 0.3 RV Internal Dim ED PLAX 2.7 cm LA Systolic Diameter LX 3.2 cm 3.0 - 4.0 / 2.7 - 3.8 cm M-MODE Aortic Root Diameter MM 3.3 cm AV Cusp Separation MM 2.0 cm DOPPLER Mitral E Point Velocity 52.3 cm/s Mitral A Point Velocity 88.8 cm/s Mitral E to A Ratio 0.6 TR Peak Velocity 219.0 cm/s TR Peak Gradient 19.2 mmHg FINDINGS LEFT VENTRICLE Normal left ventricular size. Wall thickness is normal. The left ventricular systolic function is mildly reduced with an estimated ejection fraction in the range of 45- 50%. RIGHT VENTRICLE The right ventricle is mildly dilated. LEFT ATRIUM The left atrial size is normal. RIGHT ATRIUM The right atrial size is upper limits of normal. ATRIAL SEPTUM Normal atrial septal thickness without atrial level shunting by limited color doppler interrogation. AORTA The aortic root and proximal ascending aorta are normal in size on limited imaging. MITRAL VALVE Structurally normal mitral valve. No mitral valve stenosis or regurgitation. AORTIC VALVE Trileaflet aortic valve. No aortic valve stenosis or regurgitation. TRICUSPID VALVE Structurally normal tricuspid valve. No tricuspid valve stenosis or regurgitation. PULMONARY VALVE The pulmonary valve is not well visualized. VESSELS The inferior vena cava is normal in size. PERICARDIUM No pericardial effusion. Gabriel Gong MD (Electronically Signed) Final Date:23 July 2017 18:16
--- NOTE | 2017-07-23 22:02 | EKG ---
Date Performed: 07/22/2017 Time Performed: 17:46:35 PTAGE: 62 years EKG: Sinus rhythm WITH VENTRICULAR BIGEMINY POSSIBLE RIGHT VENTRICULAR HYPERTROPHY NONSPECIFIC T-WAVE ABNORMALITY ABNO RMAL ECG PREVIOUS TRACING : 05/13/2017 20.21 Compared to prior tracing no significant change DOCTOR: Nazario Brown Interpretating Date/Time 07/23/2017 21:32:39
--- NOTE | 2017-07-23 23:14 | EKG ---
Date Performed: 07/23/2017 Time Performed: 00:03:32 PTAGE: 62 years EKG: Sinus rhythm with bigeminal PVCs Inferior/lateral T wave changes are nonspecific Abnormal ECG NO PREVIOUS TRACING DOCTOR: Nazario Brown Interpretating Date/Time 07/23/2017 23:14:01
== END 2017-07-23 18:11 | disposition home or self-care (01) | DRG 310 ==
LOC: NEPE 17:33 → NEDA 19:14 → HCPC 21:00
PROVIDERS: ADMIT Hospitalist; ATTEND Hospitalist
DX: R00.1 Bradycardia, unspecified (principal); E11.40 Type 2 diabetes mellitus with diabetic neuropathy, unspecified; F17.210 Nicotine dependence, cigarettes, uncomplicated; F25.0 Schizoaffective disorder, bipolar type; I10 Essential (primary) hypertension; F32.9 Major depressive disorder, single episode, unspecified; F41.9 Anxiety disorder, unspecified; J44.9 Chronic obstructive pulmonary disease, unspecified; Z79.84 Long term (current) use of oral hypoglycemic drugs; E78.5 Hyperlipidemia, unspecified; F10.10 Alcohol abuse, uncomplicated
CPT/HCPCS: 71010; 80048; 80053; 82550; 82552; 82948; 83735; 83880; 84484; 85025; 85610; 85730; 93005; 93306; 96360; J3475; J7040

== ENCOUNTER 2017-08-08 13:10 | Emergency (ER) | payer MEDICARE, OTHER ==
[~2017-08-08] VITALS: Ht 182.9 cm; Wt 91.0 kg
[~2017-08-08 13:10] MED LIST changes: -GNP100TA3 PO; +IBUP1TAB7 PO; +THIA100 PO; +TYLE325T PO
[2017-08-08 13:12] VITALS: BP 187/119; PULSE 120; RESP 24; TEMP 98.1; O2SAT 96
[2017-08-08] MEDS ORDERED: SODIUM CHLOR 0.9% 1000 ML INJ 1,000 ML IV SCH (13:36)
--- NOTE | 2017-08-08 13:40 | PD ---
HPI Chief Complaint: Abdominal Pain Time Seen by Provider: 13:24 Travel History International Travel<30 days: No Contact w/Intl Traveler<30days: No Traveled to known affect area: No History of Present Illness HPI 62-year-old male presents to the emergency department for evaluation of right lower chest wall/right upper abdominal pain that started 3 days ago. Patient states that he has history of neuropathy, diabetes, hypertension, hyperlipidemia , chronic back pain, bradycardia. He states that 3 days ago, he fell due to his neuropathy. He reports that he has had pain in the upper abdomen since. Patient denies any fevers or chills. No chest pain or shortness of breath. No nausea, vomiting, diarrhea. He states "I either cracked a rib or hurt my liver ". Patient does admit to drinking alcohol heavily recently, but will not specify how much he is drinking. He states is due to her multiple deaths in the family recently. Patient also reports cocaine. He denies illicit drug use. Patient states the pain is worse with coughing, deep breathing, movement. Patient states that he is out of his chronic pain medication and does have an empty bottle of alprazolam and hydrocodone at bedside. He continually keeps addressing his chronic pain and that he is out of his pain medication. Severity is moderate. Rest alleviates symptoms. PFSH Past Medical History Arthritis: No Asthma: Yes (CHILDHOOD) Bipolar Disorder: Yes Anxiety: Yes Depression: Yes Heart Rhythm Problems: No Cancer: No Cardiovascular Problems: Yes High Cholesterol: Yes Chest Pain: No Congestive Heart Failure: No COPD: No Cerebrovascular Accident: No Diabetes: Yes Patient Takes Glucophage: No Diminished Hearing: No GERD: No Genitourinary: No Headaches: No Hepatitis: No Hiatal Hernia: No Hypertension: Yes Kidney Stones: No Musculoskeletal: No Neurologic: No Psychiatric: Yes (Pt states he has bipolar schizoaffective disorder) Reproductive: Yes (COPD) Respiratory: Yes Immunizations Current: Yes Migraines: No Myocardial Infarction: No Renal Failure: No Seizures: No Sickle Cell Disease: No Sleep Apnea: No Ulcer: No Influenza Vaccination: Yes PNEUMOCCOCAL Vaccine (Year): 2 Past Surgical History Abdominal Surgery: No Appendectomy: No Cardiac Surgery: No Cholecystectomy: No Ear Surgery: No Endocrine Surgery: No Eye Surgery: No Genitourinary Surgery: No Gynecologic Surgery: No Joint Replacement: No Neurologic Surgery: Yes (NECK SURGERY; CURRENTLY DENIES) Oral Surgery: No Pacemaker: No Thoracic Surgery: No Social History Alcohol Use: Yes (STATES HE STARTED DRINKS SEVERAL TIMES A MONTH) Tobacco Use: Yes (1 PPD) Substance Use: No Allergies-Medications (Allergen,Severity, Reaction): Coded Allergies: No Known Allergies (Verified , 07/22/17) Reported Meds & Prescriptions Reported Meds & Active Scripts Active Risperdal (Risperidone) 1 Mg Tab 1 Mg PO DAILY Mirtazapine 15 Mg Tab 30 Mg PO HS Folic Acid 1 Mg Tablet 1 Mg PO DAILY Ventolin Hfa 18 GM Inh (Albuterol Sulfate) 90 Mcg/Act Aer 2 Puff INH Q8HR PRN Reported Glipizide ER (Glipizide) 2.5 Mg Eldon 2.5 Mg PO DAILY Take with breakfast or first main meal of the day Lisinopril 20 Mg Tab 20 Mg PO DAILY Atorvastatin (Atorvastatin Calcium) 20 Mg Tab 20 Mg PO HS Clonidine (Clonidine HCl) 0.1 Mg Tab 0.1 Mg PO BID Metformin (Metformin HCl) 500 Mg Tab 500 Mg PO TID With meals Review of Systems Except as stated in HPI: all other systems reviewed are Neg Physical Exam Narrative GENERAL: Well-nourished, well-developed male patient, afebrile. SKIN: Focused skin assessment warm/dry. No ecchymosis, abrasions, lacerations. HEAD: Normocephalic. Atraumatic. EYES: No scleral icterus. No injection or drainage. NECK: Supple, trachea midline. No JVD or lymphadenopathy. CARDIOVASCULAR: Regular rate and rhythm without murmurs, gallops, or rubs. RESPIRATORY: Breath sounds equal bilaterally. No accessory muscle use. Lungs sounds are clear to auscultation. GASTROINTESTINAL: Abdomen soft and nondistended. Patient has tenderness to RUQ to palpation. MUSCULOSKELETAL: No cyanosis, or edema. Patient has right lower chest wall tenderness to palpation. BACK: Nontender without obvious deformity. No CVA tenderness. Data Data Last Documented VS Vital Signs Date Time Temp Pulse Resp B/P (MAP) Pulse Ox O2 Delivery O2 Flow Rate FiO2 08/08/17 14:06 16 95 Room Air 08/08/17 13:12 98.1 120 Orders Orders Complete Blood Count With Diff (08/08/17 13:36) Comprehensive Metabolic Panel (08/08/17 13:36) Lipase (08/08/17 13:36) Prothrombin Time / Inr (Pt) (08/08/17 13:36) Act Partial Throm Time (Ptt) (08/08/17 13:36) Urinalysis - C+S If Indicated (08/08/17 13:36) Ct Abd/Pel W Iv Contrast(Rout) (08/08/17 13:36) Iv Access Insert/Monitor (08/08/17 13:36) Ecg Monitoring (08/08/17 13:36) Oximetry (08/08/17 13:36) Morphine Inj (Morphine Inj) (08/08/17 13:45) Ondansetron Inj (Zofran Inj) (08/08/17 13:45) Sodium Chlor 0.9% 1000 Ml Inj (Ns 1000 M (08/08/17 13:36) Sodium Chloride 0.9% Flush (Ns Flush) (08/08/17 13:45) Chest, Single Ap (08/08/17 13:36) Alcohol (Ethanol) (08/08/17 13:36) Iohexol 350 Inj (Omnipaque 350 Inj) (08/08/17 15:09) Ketorolac Inj (Toradol Inj) (08/08/17 15:45) Labs Laboratory Tests Test 08/08/17 13:47 White Blood Count 12.0 TH/MM3 Red Blood Count 4.13 MIL/MM3 Hemoglobin 13.9 GM/DL Hematocrit 39.8 % Mean Corpuscular Volume 96.3 FL Mean Corpuscular Hemoglobin 33.6 PG Mean Corpuscular Hemoglobin Concent 34.9 % Red Cell Distribution Width 13.8 % Platelet Count 277 TH/MM3 Mean Platelet Volume 8.0 FL Neutrophils (%) (Auto) 83.4 % Lymphocytes (%) (Auto) 10.4 % Monocytes (%) (Auto) 5.7 % Eosinophils (%) (Auto) 0.1 % Basophils (%) (Auto) 0.4 % Neutrophils # (Auto) 10.0 TH/MM3 Lymphocytes # (Auto) 1.3 TH/MM3 Monocytes # (Auto) 0.7 TH/MM3 Eosinophils # (Auto) 0.0 TH/MM3 Basophils # (Auto) 0.1 TH/MM3 CBC Comment DIFF FINAL Differential Comment Prothrombin Time 11.9 SEC Prothromb Time International Ratio 1.1 RATIO Activated Partial Thromboplast Time 26.8 SEC Blood Urea Nitrogen 13 MG/DL Creatinine 1.11 MG/DL Random Glucose 147 MG/DL Total Protein 7.7 GM/DL Albumin 4.1 GM/DL Calcium Level 8.4 MG/DL Alkaline Phosphatase 66 U/L Aspartate Amino Transf (AST/SGOT) 64 U/L Alanine Aminotransferase (ALT/SGPT) 57 U/L Total Bilirubin 0.4 MG/DL Sodium Level 136 MEQ/L Potassium Level 3.6 MEQ/L Chloride Level 100 MEQ/L Carbon Dioxide Level 21.2 MEQ/L Anion Gap 15 MEQ/L Estimat Glomerular Filtration Rate 68 ML/MIN Lipase 140 U/L Ethyl Alcohol Level 169 MG/DL [facility] Medical Decision Making Medical Screen Exam Complete: Yes Emergency Medical Condition: Yes Medical Record Reviewed: Yes Interpretation(s) CT abdomen/pelvis - CONCLUSION: No acute abnormality. Last Impressions Chest X-Ray 08/08/17 1336 Signed Impressions: Service Date/Time: Tuesday, August 08, 2017 13:56 - CONCLUSION: No evidence of acute cardiopulmonary disease. Johnnie Little MD Differential Diagnosis Rib contusion versus fracture versus pancreatitis versus intra-abdominal injury versus muscle strain versus contusion Narrative Course 62-year-old male presents to the emergency department for evaluation right upper quadrant/lower chest wall pain that started after a fall 3 days ago. CBC , CMP, lipase, PTT, PT/INR, UA, alcohol level are ordered and pending. Chest x- ray and CT abdomen/pelvis with IV contrast are ordered and pending. Patient is given normal saline 1 L IV bolus, Zofran 4 mg IV, morphine 4 mg IV. CBC shows leukocytosis 12.0. CMP shows glucose 147, AST 64. Lipase is 140. Coags show no acute abnormality. Alcohol level is 169. Chest x-ray shows no evidence of acute cardiopulmonary disease. CT abdomen/pelvis with IV contrast shows no acute abnormality. Patient is requesting more pain medication. He is given Toradol 30 mg IV. He' ll be discharged with a prescription for ibuprofen for pain. Patient is instructed to follow-up with his primary care physician. The patient was discharged in stable condition with instructions, including return instructions and follow up instructions. Diagnosis Primary Impression: Rib contusion Qualified Codes: S20.211A - Contusion of right front wall of thorax, initial encounter Referrals: Primary Care Physician call for appointment Patient Instructions: General Instructions, Rib Contusion (ED) Additional Instructions: Ice for 20 minutes 4-5 times daily. Take ibuprofen as instructed as needed with food for pain. Follow-up with your primary care physician. Return to the emergency department for any acute worsening of symptoms. Med/Other Pt SpecificInfo: Prescription(s) given Scripts Ibuprofen (Ibuprofen) 600 Mg Tab 600 MG PO TID Y for PAIN SCALE 1 TO 10, #21 TAB 0 Refills Prov: Sanjuanita Abbasi 08/08/17 Disposition: 01 DISCHARGE HOME Condition: Stable Sanjuanita Abbasi Aug 08, 2017 13:40
[2017-08-08] MEDS ORDERED: GLIP1TAB60 PO (13:42)
[2017-08-08] MEDS ORDERED: ONDANSETRON HCL 4 MG/2 ML VIAL IVP ONE (13:45)
[2017-08-08] MEDS ORDERED: MORPHINE SULFATE 4 MG/ML INJ IV PUSH ONE (13:45)
[2017-08-08] MEDS ORDERED: SODIUM CHLORIDE 0.9% FLUSH 10 ML FLUSH IV FLUSH PRN (13:45)
[2017-08-08 14:00] VITALS: BP 165/83; PULSE 114; RESP 16; O2SAT 95
[2017-08-08 14:06] VITALS: RESP 16; O2SAT 95
[2017-08-08 14:07] LABS: BASOPHIL # 0.1 TH/MM3 (0-0.2); BASOPHIL % 0.4 % (0.0-2.0); EOSINOPHIL % 0.1 % (0.0-4.0); HEMATOCRIT 39.8 % (39.0-51.0); HEMO FLAGS DIFF FINAL; LYMPH % 10.4 % (9.0-44.0); LYMPHOCYTE # 1.3 TH/MM3 (1.0-4.8); MEAN CELL VOLUME 96.3 FL (80.0-100.0); MEAN CORPUSCULAR HEMOGLOBIN 33.6 PG (27.0-34.0); MEAN CORPUSCULAR HGB CONC 34.9 % (32.0-36.0); MONO % 5.7 % (0.0-8.0); NEUT % 83.4 % (16.0-70.0); PLATELET COUNT 277 TH/MM3 (150-450); RED BLOOD COUNT 4.13 MIL/MM3 (4.50-5.90); RED CELL DISTRIBUTION WIDTH 13.8 % (11.6-17.2)
--- NOTE | 2017-08-08 14:12 | RADRPT ---
EXAM DATE/TIME: 08/08/2017 13:56 [facility] COMPARISON: CHEST SINGLE AP, July 22, 2017, 17:51. INDICATIONS : Right side chest pain post fall. MEDICAL HISTORY : Hypertension. Chronic obstructive pulmonary disease. Diabetes mellitus type II. Asthma. SURGICAL HISTORY : None. ENCOUNTER: Initial ACUITY: 1 day PAIN SCORE: 5/10 LOCATION: Right chest FINDINGS: A single view of the chest demonstrates the lungs to be symmetrically aerated without evidence of mas s, infiltrate or effusion. The cardiomediastinal contours are unremarkable. Osseous structures are grossly intact. CONCLUSION: No evidence of acute cardiopulmonary disease. Johnnie Little MD on August 08, 2017 at 14:09 Board Certified Radiologist. This report was verified electronically.
[2017-08-08 14:17] LABS: APTT (PATIENT) 26.8 SEC (24.3-30.1); INTERNATIONAL NORMALIZED RATIO 1.1 RATIO; PROTHROMBIN TIME - PATIENT 11.9 SEC (9.8-11.6)
[2017-08-08 14:26] LABS: ALT (GPT) 57 U/L (12-78); ANION GAP 15 MEQ/L (5-15); AST (GOT) 64 U/L (15-37); BICARBONATE 21.2 MEQ/L (21.0-32.0); BLOOD UREA NITROGEN 13 MG/DL (7-18); CHLORIDE 100 MEQ/L (98-107); GLOMERULAR FILTRATION RATE 68 ML/MIN (>89); POTASSIUM 3.6 MEQ/L (3.5-5.1); SODIUM (NA) 136 MEQ/L (136-145)
[2017-08-08 14:28] LABS: ALKALINE PHOSPHATASE 66 U/L (45-117); TOTAL BILIRUBIN ADULT 0.4 MG/DL (0.2-1.0)
[2017-08-08 14:31] LABS: ALCOHOL 169 MG/DL (0-5)
[2017-08-08] MEDS ORDERED: IOHEXOL 350 MG/ML 10 ML VIAL (for RAD DIAG) IVCONTRAST ONE (15:09)
[2017-08-08 15:10] VITALS: BP 173/87; PULSE 96; RESP 16; O2SAT 95
--- NOTE | 2017-08-08 15:26 | RADRPT ---
EXAM DATE/TIME: 08/08/2017 14:57 [facility] COMPARISON: No previous studies available for comparison. INDICATIONS : Fall with pain in right upper abdomen; palpable lump right upper abdomen/rib region. IV CONTRAST: 95 cc Omnipaque 350 (iohexol) IV ORAL CONTRAST: No oral contrast ingested. RADIATION DOSE: 15.34 CTDIvol (mGy) MEDICAL HISTORY : Cardiovascular disease. Chronic obstructive pulmonary disease. Diabetes SURGICAL HISTORY : None. ENCOUNTER: Initial ACUITY: 3 days PAIN SCALE: 10/10 LOCATION: Right upper quadrant TECHNIQUE: Volumetric scanning of the abdomen and pelvis was performed. Using automated exposure control and ad justment of the mA and/or kV according to patient size, radiation dose was kept as low as reasonably achievable to obtain optimal diagnostic quality images. DICOM format image data is available electro nically for review and comparison. FINDINGS: LOWER LUNGS: The visualized lower lungs are clear. LIVER: Homogeneous density without lesion. There is no dilation of the biliary tree. No calcified gallston es. SPLEEN: Normal size without lesion. PANCREAS: Within normal limits. KIDNEYS: Normal in size and shape. There is no mass, stone or hydronephrosis. ADRENAL GLANDS: Within normal limits. VASCULAR: There is no aortic aneurysm. BOWEL/MESENTERY: The stomach, small bowel, and colon demonstrate no acute abnormality. There is no free intraperitone al air or fluid. Normal appendix. ABDOMINAL WALL: Within normal limits. RETROPERITONEUM: There is no lymphadenopathy. BLADDER: No wall thickening or mass. REPRODUCTIVE: Within normal limits. INGUINAL: There is no lymphadenopathy or hernia. MUSCULOSKELETAL: Visualized ribs and other osseous structures are intact. No mass of the abdominal wall or elsewhere. CONCLUSION: No acute abnormality. Johnnie Little MD on August 08, 2017 at 15:22 Board Certified Radiologist. This report was verified electronically.
[2017-08-08] MEDS ORDERED: IBUP-232 PO (15:37)
[2017-08-08 15:43] LABS: BLOOD, URINE NEG (NEG); GLUCOSE,URINE NEG (NEG); KETONE, URINE NEG (NEG); NITRITE,URINE NEG (NEG); URINE COLOR LIGHT-YELLOW (YELLW/STRAW)
[2017-08-08 15:44] LABS: COMMENT (UR) CULT NOT INDICATED; CULTURE IF INDICATED CULT NOT INDICATED
[2017-08-08] MEDS ORDERED: KETOROLAC TROMETHAMINE 30 MG/ML (IVP) VIAL IV PUSH ONE (15:45)
== END 2017-08-08 15:58 | disposition home or self-care (01) ==
LOC: NEPE 13:10
DX: S20.211A Contusion of right front wall of thorax, initial encounter (principal); D72.829 Elevated white blood cell count, unspecified; F17.200 Nicotine dependence, unspecified, uncomplicated; F31.9 Bipolar disorder, unspecified; F41.9 Anxiety disorder, unspecified; E78.00 Pure hypercholesterolemia, unspecified; E11.9 Type 2 diabetes mellitus without complications; I10 Essential (primary) hypertension; W19.XXXA Unspecified fall, initial encounter
CPT/HCPCS: 71010; 74177; 80053; 81001; 83690; 85025; 85610; 85730; 96361; 96374; 96375; 99285; J1885; J2270; J2405; J7030; Q9967; 80307

== ENCOUNTER 2017-08-08 19:21 | Inpatient (IN) | payer OTHER, MEDICARE ==
[~2017-08-08] VITALS: Ht 182.9 cm; Wt 90.9 kg
[~2017-08-08 19:21] MED LIST changes: +GLIP1TAB60 PO; +IBUP-232 PO
[2017-08-08 19:32] VITALS: BP 141/96; PULSE 96; RESP 20; TEMP 98.3; O2SAT 95
--- NOTE | 2017-08-08 19:41 | PD ---
HPI Chief Complaint: Psychiatric Symptoms Time Seen by Provider: 19:23 Travel History International Travel<30 days: No Contact w/Intl Traveler<30days: No Traveled to known affect area: No History of Present Illness HPI 62-year-old male who was just recently discharged from the hospital around 4 PM this afternoon presents back to the emergency Department under [place] act by local police. Patient does state that he has lost multiple family members and states that he is feeling depressed and suicidal. He reports striking alcohol since he left here. He denies any specific plan to hurt himself. Patient denies illicit drug use. He has no medical complaints at this time. Patient was seen earlier for right upper quadrant abdominal pain. On reexamination now , he is nontender to palpation in this area. Patient is tearful my exam. Patient did not mention any time earlier that he was suicidal or depressed. PFSH Past Medical History Arthritis: No Asthma: Yes (CHILDHOOD) Bipolar Disorder: Yes Anxiety: Yes Depression: Yes Heart Rhythm Problems: No Cancer: No Cardiovascular Problems: Yes High Cholesterol: Yes Chest Pain: No Congestive Heart Failure: No COPD: No Cerebrovascular Accident: No Diabetes: Yes Diminished Hearing: No GERD: No Genitourinary: No Headaches: No Hepatitis: No Hiatal Hernia: No Hypertension: Yes Kidney Stones: No Musculoskeletal: No Neurologic: No Psychiatric: Yes (Pt states he has bipolar schizoaffective disorder) Reproductive: Yes (COPD) Respiratory: Yes Immunizations Current: Yes Migraines: No Myocardial Infarction: No Renal Failure: No Seizures: No Sickle Cell Disease: No Sleep Apnea: No Ulcer: No PNEUMOCCOCAL Vaccine (Year): 2 Past Surgical History Abdominal Surgery: No Appendectomy: No Cardiac Surgery: No Cholecystectomy: No Ear Surgery: No Endocrine Surgery: No Eye Surgery: No Genitourinary Surgery: No Gynecologic Surgery: No Joint Replacement: No Neurologic Surgery: Yes (NECK SURGERY; CURRENTLY DENIES) Oral Surgery: No Pacemaker: No Thoracic Surgery: No Social History Alcohol Use: Yes (STATES HE STARTED DRINKS SEVERAL TIMES A MONTH) Tobacco Use: Yes (1 PPD) Substance Use: No Allergies-Medications (Allergen,Severity, Reaction): Coded Allergies: No Known Allergies (Verified Adverse Reaction, Unknown, 08/08/17) Reported Meds & Prescriptions Reported Meds & Active Scripts Active Ibuprofen 600 Mg Tab 600 Mg PO TID PRN Risperdal (Risperidone) 1 Mg Tab 1 Mg PO DAILY Mirtazapine 15 Mg Tab 30 Mg PO HS Folic Acid 1 Mg Tablet 1 Mg PO DAILY Ventolin Hfa 18 GM Inh (Albuterol Sulfate) 90 Mcg/Act Aer 2 Puff INH Q8HR PRN Reported Glipizide ER (Glipizide) 2.5 Mg Eldon 2.5 Mg PO DAILY Take with breakfast or first main meal of the day Lisinopril 20 Mg Tab 20 Mg PO DAILY Atorvastatin (Atorvastatin Calcium) 20 Mg Tab 20 Mg PO HS Clonidine (Clonidine HCl) 0.1 Mg Tab 0.1 Mg PO BID Metformin (Metformin HCl) 500 Mg Tab 500 Mg PO TID With meals Review of Systems Except as stated in HPI: all other systems reviewed are Neg Physical Exam Narrative GENERAL: Well-nourished, well-developed male patient, afebrile. SKIN: Focused skin assessment warm/dry. HEAD: Normocephalic. Atraumatic. EYES: No scleral icterus. No injection or drainage. NECK: Supple, trachea midline. No JVD or lymphadenopathy. CARDIOVASCULAR: Regular rate and rhythm without murmurs, gallops, or rubs. RESPIRATORY: Breath sounds equal bilaterally. No accessory muscle use. Lungs sounds are clear to auscultation. GASTROINTESTINAL: Abdomen soft, non-tender, nondistended. MUSCULOSKELETAL: No cyanosis, or edema. PSYCHIATRIC: No delusional thought processes. No hallucinations. Data Data Last Documented VS Vital Signs Date Time Temp Pulse Resp B/P (MAP) Pulse Ox O2 Delivery O2 Flow Rate FiO2 08/08/17 19:32 98.3 96 20 141/96 (111) 95 MDM Medical Decision Making Medical Screen Exam Complete: Yes Emergency Medical Condition: Yes Medical Record Reviewed: Yes Differential Diagnosis Depression versus anxiety versus alcohol intoxication Narrative Course 62-year-old male presents to the emergency department for evaluation of depression and suicidal ideation who was drinking alcohol tonight. I just completed lab work and the emergency department approximately 3 hours ago. I reviewed my lab work from earlier. CBC showed slight leukocytosis of 12.0. CMP showed elevated glucose of 147, AST of 64. Coags showed no acute abnormality. Alcohol level was 169. Patient is medically cleared for psychiatric screening and disposition. Mental health screening discussed with the patient. Psychiatric screen ordered. Diagnosis Primary Impression: Depression Qualified Codes: F32.9 - Major depressive disorder, single episode, unspecified Additional Impression: Alcohol intoxication Qualified Codes: F10.920 - Alcohol use, unspecified with intoxication, uncomplicated Condition: Stable Sanjuanita Abbasi Aug 08, 2017 19:41
[2017-08-08] MEDS ORDERED: ACETAMINOPHEN 325 MG TAB PO ONE (22:15)
[2017-08-09] VITALS (7 sets, daily range): BP systolic 124–188; BP diastolic 71–99; PULSE 73–99; RESP 16–18; TEMP 98.5–98.8; O2SAT 95–97
[2017-08-09] MEDS ORDERED: metFORMIN HCL 500 MG TAB PO ONE (08:15)
[2017-08-09] MEDS ORDERED: glipiZIDE 5 MG TAB PO ONE (08:15)
[2017-08-09] MEDS ORDERED: LISINOPRIL 20 MG TAB PO ONE (08:15)
[2017-08-09] MEDS ORDERED: FLUMAZENIL 0.5 MG/5 ML VIAL IV PUSH PRN (10:45)
[2017-08-09] MEDS ORDERED: LORazepam 1 MG TAB PO PRN ×2 (10:45→20:00)
[2017-08-09] MEDS ORDERED: LORazepam 2 MG/ML VIAL IV PUSH PRN ×2 (10:45)
[2017-08-09] MEDS ORDERED: LORazepam 2 MG TAB PO PRN ×2 (10:45→20:00)
[2017-08-09] MEDS: ACETAMINOPHEN 325 MG TAB PO PRN (11:18)
[2017-08-09] MEDS ORDERED: cloNIDine HCL 0.1 MG TAB PO ONE (13:30)
[2017-08-09] MEDS ORDERED: cloNIDine HCL 0.2 MG TAB PO ONE (16:30)
[2017-08-09] MEDS: LORazepam 1 MG TAB PO PRN (19:57)
[2017-08-09] MEDS ORDERED: LORazepam 2 MG/ML VIAL IM PRN ×5 (20:00)
[2017-08-09] MEDS ORDERED: ALUMINUM/MAGNESIUM/SIMETH 30 ML CUP PO PRN (20:00)
[2017-08-09] MEDS ORDERED: MAGNESIUM HYDROXIDE SUSP 30 ML CUP PO PRN (20:00)
[2017-08-09] MEDS ORDERED: ACETAMINOPHEN 325 MG TAB PO PRN (20:00)
[2017-08-09] MEDS ORDERED: REMOVE OLD NICOTINE PATCH T-DERMAL SCH (21:00)
[2017-08-10] MEDS: LORazepam 1 MG TAB PO PRN ×2 (05:19→09:24)
[2017-08-10] MEDS: ACETAMINOPHEN 325 MG TAB PO PRN (05:19)
[2017-08-10 05:22] VITALS: BP 148/83; PULSE 67; RESP 17; TEMP 97.9; O2SAT 97
--- NOTE | 2017-08-10 08:10 | PD.CONS ---
[facility] By Ernie Bonner MD. Reason for Consult Medical management. Primary Care Physician Unknown Diagnoses: History of Present Illness Emergency Medicine Notes: This is a pleasant 62 y/o Male who was discharged yesterday and came back to Emergency Room under [place] Act by local police Patient does state that he has lost multiple family members and states that he is feeling depressed and suicidal. He reports striking alcohol since he left here. He denies any specific plan to hurt himself. Patient denies illicit drug use. He has no medical complaints at this time. Patient was seen earlier for right upper quadrant abdominal pain. On reexamination now, he is nontender to palpation in this area. Patient is tearful my exam. Patient did not mention any time earlier that he was suicidal or depressed. The patient was just recently admitted due to symptomatic Bradycardia, he was at [facility] for seven days before this hospitalization due to EtOH Detox, Review of Systems Constitutional: DENIES: Fever, Chills, Change in appetite Endocrine: DENIES: Heat/cold intolerance Eyes: DENIES: Blurred vision, Eye pain Except as stated in HPI: all other systems reviewed are Neg Past Family Social History Allergies: Coded Allergies: No Known Allergies (Verified Allergy, Unknown, 08/09/17) Past Medical History Hypertension Hyperlipidemia DM II COPD Peripheral Neuropathy Bipolar Disorder Anxiety disorder Depression Past Surgical History Denies Reported Medications Reported Meds & Active Scripts Active Ibuprofen 600 Mg Tab 600 Mg PO TID PRN Risperdal (Risperidone) 1 Mg Tab 1 Mg PO DAILY Mirtazapine 15 Mg Tab 30 Mg PO HS Folic Acid 1 Mg Tablet 1 Mg PO DAILY Ventolin Hfa 18 GM Inh (Albuterol Sulfate) 90 Mcg/Act Aer 2 Puff INH Q8HR PRN Reported Glipizide ER (Glipizide) 2.5 Mg Eldon 2.5 Mg PO DAILY Take with breakfast or first main meal of the day Lisinopril 20 Mg Tab 20 Mg PO DAILY Atorvastatin (Atorvastatin Calcium) 20 Mg Tab 20 Mg PO HS Clonidine (Clonidine HCl) 0.1 Mg Tab 0.1 Mg PO BID Metformin (Metformin HCl) 500 Mg Tab 500 Mg PO TID With meals Active Ordered Medications Current Medications Medications (Trade) Dose Ordered Sig/Lillian Route Start Time Stop Time Status Last Admin (Tylenol) 650 mg Q4H PRN PO 08/09/17 10:45 08/10/17 05:19 (Romazicon Inj) 0.2 mg Q1M PRN IV PUSH 08/09/17 10:45 (Ativan) 1 mg Q6H PRN PO 08/09/17 20:00 (Ativan Inj) 1 mg Q6H PRN IM 08/09/17 20:00 (Tylenol) 650 mg Q4H PRN PO 08/09/17 20:00 (Milk Of Magnesia Liq) 30 ml DAILY PRN PO 08/09/17 20:00 (Mag-Al Plus Susp Liq) 30 ml Q6H PRN PO 08/09/17 20:00 (Habitrol 21 Mg Patch.24 Hr) 1 patch DAILY T-DERMAL 08/10/17 09:00 Miscellaneous Information 1 HS T-DERMAL 08/09/17 21:00 (Ativan) 1 mg Q4H PRN PO 08/09/17 20:00 08/10/17 05:19 (Ativan Inj) 1 mg Q4H PRN IM 08/09/17 20:00 (Ativan) 2 mg Q2H PRN PO 08/09/17 20:00 (Ativan Inj) 2 mg Q2H PRN IM 08/09/17 20:00 (Ativan Inj) 2 mg Q1H PRN IM 08/09/17 20:00 (Ativan Inj) 2 mg Q15M PRN IM 08/09/17 20:00 Family History Father with DM II Mother with Lymphoma. Social History Tobacco dependency one and half pack daily On EtOH Detox Cocaine occasional. Physical Exam Vital Signs Vital Signs Date Time Temp Pulse Resp B/P (MAP) Pulse Ox O2 Delivery O2 Flow Rate FiO2 08/10/17 05:22 97.9 67 17 148/83 (104) 97 08/09/17 18:20 98.5 97 18 138/77 (97) 95 08/09/17 18:15 08/09/17 17:09 91 16 168/88 (114) 08/09/17 16:25 88 18 188/99 (128) 08/09/17 15:01 98.5 89 18 166/95 (118) 97 Room Air 08/09/17 12:40 94 18 172/96 (121) 97 Room Air 08/09/17 10:50 98.8 99 18 152/72 (98) 95 Room Air Physical Exam GENERAL: This is a well-nourished, well-developed patient, in no apparent distress. SKIN: No rashes, ecchymoses or lesions. Cool and dry. HEAD: Atraumatic. Normocephalic. No temporal or scalp tenderness. EYES:No scleral icterus. No injection or drainage. ENT: Nose without bleeding, purulent drainage or septal hematoma. Airway patent. NECK: Trachea midline. No JVD CARDIOVASCULAR: Regular rate and rhythm without murmurs, gallops, or rubs. RESPIRATORY: Clear to auscultation. Breath sounds equal bilaterally. No wheezes , rales, or rhonchi. GASTROINTESTINAL: Abdomen soft, non-tender, nondistended. No guarding. MUSCULOSKELETAL: Extremities without clubbing, cyanosis, or edema. . No calf tenderness. NEUROLOGICAL: Awake and alert. Motor and sensory grossly within normal limits. Normal speech. Assessment and Plan Assessment and Plan 1. Major Depressive Disorder/Alcohol intoxication/Suicidal ideation Psychiatry specialist following 2. Hypertension continue Home medicines 3. DM II laboratory in am gave blood sugar in 145 will continue home oral medicines 4. COPD stable continue home Bronchodilators 5. Peripheral Neuropathy by history 6. Alcohol intoxication No need for DVT prophylaxis patient active. Seen in his bedroom in the presence of nurse Keya Villegas no further recommendations. continue present care and follow with PCP. sign off the case. Code Status full code Discussed Condition With Patient and nurse Miss Villegas in the room Zak Love MD Aug 10, 2017 08:10
[2017-08-10] MEDS ORDERED: IBUPROFEN 600 MG TAB PO PRN (08:15)
[2017-08-10] MEDS ORDERED: ALBUTEROL SULFATE 90 MCG/ACT HFA 8 GM INHALER INH PRN (08:15)
--- NOTE | 2017-08-10 08:49 | HHI.HP ---
Provisional Diagnosis Admission Date Aug 09, 2017 at 18:49 [place] [facility]. 1. Adjustment disorder with depressed mood 2. Alcohol dependence, presently in mild uncomplicated withdrawal [place] II. 1. 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 Express and informed consent means consent voluntarily given in writing, by a competent person, after sufficient explanation and disclosure of the subject matter involved to enable the person to make a knowing and willful decision without any element of force, fraud, deceit, duress, or other form of constraint or coercion. This person is 18 years of age or older, is not now known to be incompetent to consent to treatment with a guardian advocate, and does not have a health care surrogate or proxy currently making medical treatment decisions. I have found this person to be one of the following: [x] Competent to provide express and informed consent, as defined above, for voluntary admission to this facility and is competent to provide express and informed consent for treatment. He/she has the consistent capacity to make well reasoned, willful, and knowing decisions concerning his or her medical or mental health treatment. The person fully and consistently understands the purpose of the admission for examination/placement and is fully capable of personally exercising all rights assured under [place] [] Incompetent to provide express and informed consent to voluntary admission, and this is incompetent to provide express and informed consent to treatment. The person must be transferred to involuntary status and a petition for a guardian advocate filed with the Circuit Court. [] Refusing to provide express and informed consent to voluntary admission but is competent to provide express and informed consent for treatment. The person must be discharged or transferred to involuntary status. Form shall be completed within 24 hours of a person's arrival at the receiving facility and filed in the clinical record of each person: 1. Admitted on a voluntary basis 2. Permitted to provide express and informed consent to his/her own treatment 3. Allowed to transfer from involuntary to voluntary status 4. Prior to permitting a person to consent to his or her own treatment after having been previously found incompetent to consent to treatment. History of Present Illness Capacity: Has Capacity Psych Chief Complaint: "I had an alcohol problem." HPI Mr. Badillo is a 62-year-old male with a reported history of bipolar disorder/schizoaffective disorder who presents under a Gomez act by [place] [employer] alleging that the patient has been depressed and suicidal related to the loss of family members. Reviewing the electronic medical record , I note that the patient presented 08/08 with a rib contusion following a fall and alcohol level of 169. He then returned later on that evening under the Gomez Act with alcohol level of 297. He was psychiatrically admitted most recently in May of this year under Dr. Sosa. Patient seen and examined. Chart reviewed. Case discussed with nursing staff. On my examination today the patient presents as quite manipulative and personality disordered. He exhibits antisocial personality traits as well as some narcissistic and borderline features. He is clinically sober. He is medication seeking for benzodiazepines and opiates and at one point rails against a system in which "people that hurt like me can't get what they need." When I ask him what he feels that he needs, he replies "hydrocodone." He ruminates on his social situation, in particular the fact that his home is presently without functioning utilities. His purpose in coming into the hospital, he says, is for chemical dependency treatment. Mood is presently "depressed." He denies any SI, intent or plan. He denies any HI. When asked to generate other symptoms of depression besides low mood, he says only that he is lonely. He does not presently describe any hypomanic or manic symptoms, nor does he give any history consistent with terell or hypomania. The most he can say regarding previous manic or hypomanic episodes is that he has had times in the past when he was "too excited." He denies any audiovisual hallucinations. I can elicit no delusional material. He does report recent losses of his father and favorite aunt 2 weeks ago. The remainder of the psychiatric ROS is negative. The patient has multiple chronic pain issues but describes no acute pain. He describes some subjective tremor from withdrawal. No other physical complaints. Past psychiatric history: The patient reports previous diagnoses as noted above. He is not currently under the care of a psychiatrist. He is not taking any psychotropic medications. Patient is evasive regarding previous psychiatric admissions, but he does have the admission here in May as I said. He denies a history of suicide attempts. Review of Systems ROS Limitations: Poor Historian Except as stated in HPI: all other systems reviewed are Neg Past Psych History Psychological trauma history Patient denies any history of physical, verbal or sexual abuse. Violence risk - others (6 mos) Lower imminent risk. Denies homicidal ideation. No reported history of violent crime. Denies any access to guns or firearms. Alcohol use and personality disorder are chronic risk factors. Violence risk - self (6 mos) Lower imminent risk. Denies suicidal ideation. Denies a history of suicide attempts. Denies any family history of suicide. Denies any access to guns or firearms. Alcohol use and personality disorder are chronic risk factors here as well. Substance Abuse History Drugs/Alcohol past 12 months Patient reports that he relapsed alcohol 2 weeks ago. He has been drinking a quart of liquor daily. He says that previous to the relapse he had been sober for several years and has a history of rehabilitation programs and AA in the past. He denies any history of DTs or seizures. He smokes a pack a day of cigarettes. He denies any other substance use. Past Family Social History Coded Allergies: No Known Allergies (Verified Allergy, Unknown, 08/09/17) Past Medical History Reports a history of COPD, diabetes and arthritis as well as chronic pain issues. Active Scripts Ibuprofen (Ibuprofen) 600 Mg Tab, 600 MG PO TID Y for PAIN SCALE 1 TO 10, #21 TAB 0 Refills Prov:Sanjuanita Abbasi 08/08/17 Risperidone (Risperdal) 1 Mg Tab, 1 MG PO DAILY for health, #30 TAB 0 Refills Prov:Johnnie Sosa MD 05/24/17 Mirtazapine (Mirtazapine) 15 Mg Tab, 30 MG PO HS for health, #30 TAB 0 Refills Prov:Johnnie Sosa MD 05/24/17 Folic Acid (Folic Acid) 1 Mg Tablet, 1 MG PO DAILY for health, #30 TAB 0 Refills Prov:Johnnie oSsa MD 05/24/17 Albuterol 18 GM Inh (Ventolin Hfa 18 GM Inh) 90 Mcg/Act Aer, 2 PUFF INH Q8HR Y for SHORTNESS OF BREATH, #1 INHALER 0 Refills Prov:Johnnie Sosa MD 05/24/17 Reported Medications Glipizide ER (Glipizide ER) 2.5 Mg Eldon, 2.5 MG PO DAILY for Blood Sugar Management, #30 TAB 0 Refills Take with breakfast or first main meal of the day 08/08/17 Lisinopril (Lisinopril) 20 Mg Tab, 20 MG PO DAILY, #30 TAB 0 Refills 05/13/17 Atorvastatin (Atorvastatin) 20 Mg Tab, 20 MG PO HS for Cholesterol Management, # 30 TAB 0 Refills 05/13/17 Clonidine (Clonidine) 0.1 Mg Tab, 0.1 MG PO BID for Blood Pressure Management, # 60 TAB 0 Refills 05/13/17 Metformin (Metformin) 500 Mg Tab, 500 MG PO TID for Blood Sugar Management, #60 TAB 0 Refills With meals 05/13/17 Discontinued Reported Medications Acetaminophen (Tylenol) 325 Mg Tab, 325-650 MG PO Q4HR Y for PAIN 1-10 AND/OR FEVER >101F, TAB 0 Refills 07/22/17 Ibuprofen (Ibuprofen) 800 Mg Tab, 400-800 MG PO Q6HR Y for PAIN 1-10 AND/OR FEVER >101F, #40 TAB 0 Refills 07/22/17 Discontinued Scripts Multiple Vitamin (Thera/Beta-Carotene) 1 Tab Tab, 1 TAB PO DAILY for vitamin for 30 Days, TAB 0 Refills Prov:Adriane Bal MD 05/15/17 Thiamine HCl (Gnp Vitamin B-1) 100 Mg Tab, 100 MG PO DAILY for vitamin for 30 Days, TAB 0 Refills Prov:Adriane Bal MD 05/15/17 Current Medications Medications (Trade) Dose Ordered Sig/Lillian Route Start Time Stop Time Status Last Admin (Tylenol) 650 mg Q4H PRN PO 08/09/17 10:45 08/10/17 05:19 (Romazicon Inj) 0.2 mg Q1M PRN IV PUSH 08/09/17 10:45 (Ativan) 1 mg Q6H PRN PO 08/09/17 20:00 (Ativan Inj) 1 mg Q6H PRN IM 08/09/17 20:00 (Tylenol) 650 mg Q4H PRN PO 08/09/17 20:00 (Milk Of Magnesia Liq) 30 ml DAILY PRN PO 08/09/17 20:00 (Mag-Al Plus Susp Liq) 30 ml Q6H PRN PO 08/09/17 20:00 (Habitrol 21 Mg Patch.24 Hr) 1 patch DAILY T-DERMAL 08/10/17 09:00 Miscellaneous Information 1 HS T-DERMAL 08/09/17 21:00 (Ativan) 1 mg Q4H PRN PO 08/09/17 20:00 08/10/17 05:19 (Ativan Inj) 1 mg Q4H PRN IM 08/09/17 20:00 (Ativan) 2 mg Q2H PRN PO 08/09/17 20:00 (Ativan Inj) 2 mg Q2H PRN IM 08/09/17 20:00 (Ativan Inj) 2 mg Q1H PRN IM 08/09/17 20:00 (Ativan Inj) 2 mg Q15M PRN IM 08/09/17 20:00 (Proair Hfa Inh) 2 puff Q8HR PRN INH 08/10/17 08:15 UNV (Lipitor) 20 mg HS PO 08/10/17 21:00 UNV (Catapres) 0.1 mg BID PO 08/10/17 09:00 (Folate) 1 mg DAILY PO 08/10/17 09:00 (Motrin) 600 mg TID PRN PO 08/10/17 08:15 (Prinivil) 20 mg DAILY PO 08/10/17 09:00 (Glucophage) 500 mg TID PO 08/10/17 09:00 UNV Non-Formulary Medication 2.5 mg DAILY PO 08/10/17 09:00 UNV Family Psych History Denies any family history of serious mental illness or suicide. He initially endorses a family history of substance use issues but then says "I'm the only one." Social History Patient lives alone in a house. He previously studied [employer]. He is currently disabled. He denies any history. Denies any current legal issues but does endorse a history of DUIs. Denies any access to guns or firearms. No particular jehovah's witness or spiritual beliefs. Patient's Strengths (min. 2) Able to access clinical care. Verbally fluent. Physical Exam Physical examination completed by hospitalist hematology oncology consultant. On my examination today, the patient appears to be in no acute physical distress. He has a mild resting hand tremor and is mildly diaphoretic. No mydriasis or tongue fasciculations. No other motor abnormalities noted. Labs and vitals reviewed: Vital Signs Vital Signs Date Time Temp Pulse Resp B/P (MAP) Pulse Ox O2 Delivery O2 Flow Rate FiO2 08/10/17 05:22 97.9 67 17 148/83 (104) 97 08/09/17 15:01 Room Air Lab Results Item Value Date Time White Blood Count 12.0 TH/MM3 H 08/08/17 1347 Hemoglobin 13.9 GM/DL 08/08/17 1347 Platelet Count 277 TH/MM3 08/08/17 1347 Sodium Level 139 MEQ/L 08/10/17 0753 Potassium Level 3.6 MEQ/L 08/10/17 0753 Chloride Level 106 MEQ/L 08/10/17 0753 Carbon Dioxide Level 21.9 MEQ/L 08/10/17 0753 Blood Urea Nitrogen 15 MG/DL 08/10/17 0753 Creatinine 1.07 MG/DL 08/10/17 0753 Estimat Glomerular Filtration Rate 70 ML/MIN L 08/10/17 0753 Aspartate Amino Transf (AST/SGOT) 64 U/L H 08/08/17 1347 Alanine Aminotransferase (ALT/SGPT) 57 U/L 08/08/17 1347 Alkaline Phosphatase 66 U/L 08/08/17 1347 Lipase 140 U/L 08/08/17 1347 Ethyl Alcohol Level 297 MG/DL H 08/08/172009 Chest x-ray and abdomen/pelvis CT obtained on the are both read as no acute process. Urinalysis revealed 30 protein but otherwise was unremarkable. Mental Status Examination Appearance: Disheveled Consciousness: Alert Orientation: x4 Motor Activity: Other (motor exam as above) Speech: Unremarkable Language: Adequate Fund of Knowledge: Adequate Attention and Concentration: Adequate Memory: Unremarkable (grossly intact on clinical exam) Mood: Other ("depressed") Affect: Other (irritable, restricted and dysphoric) Thought Process & Associations: Intact Thought Content: Appropriate Hallucination Type: None Delusion Type: None Suicidal Ideation: No Suicidal Plan: No Suicidal Intention: No Homicidal Ideation: No Homicidal Plan: No Homicidal Intention: No Insight: Fair Judgment: Poor Assessment & Plan Problem List: (1) Adjustment disorder with depressed mood ICD Codes: F43.21 - Adjustment disorder with depressed mood (2) Alcohol dependence ICD Codes: F10.20 - Alcohol dependence, uncomplicated Assessment & Plan: in mild withdrawal (3) Cluster B personality disorder ICD Codes: F60.9 - Personality disorder, unspecified Assessment & Plan 62 year-old male with psychiatric history as detailed above who presents under a Gomez Act. Although historical diagnoses included BPAD and SAD , presently the patient seems chiefly personality disordered and alcohol use disordered. There is no evidence of decompensated psychosis nor of primary mood disorder in this patient at this time. I do suspect that he is experiencing some degree of adjustment reaction to his reported recent losses. His stated goal in coming into the hospital is alcohol use disorder treatment. Looking at his suicide and violence risk assessment, the alcohol use is certainly the largest modifiable risk factor, and so I agree with the patient that it makes sense to focus treatment on the alcohol use. Since alcohol use disorder treatment is the primary goal of this admission, it makes sense to transfer him to a facility that specializes in this issue rather than having him remain on the general inpatient psychiatric unit. I have mobilized the discharge planners and charge nurse to facilitate transfer to a chemical dependency treatment facility. Admit inpatient. Voluntary status. Librium taper starting at 25mg 4 times daily with CIWA scale with Ativan for breakthrough withdrawal. Thiamine and folate. Seizure and fall precautions. Hold off on any other psychotropics at this time as there is no clear indication and sedating medications, for example , may mask withdrawal. Atarax as needed for anxiety. Hospitalist consulted by Dr. Rahman. I will add Accu-cheks and sliding scale. Vitals every shift. Counselor to see. Disposition planning. ELOS: 2-3 days with plan for transfer to detox facility. Discharge Planning To detox facility. Request HC Surrog/Guard Advoc?: No Problem Qualifiers (1) Alcohol dependence: Qualified Codes: F10.230 - Alcohol dependence with withdrawal, uncomplicated Ernie Bonner MD Aug 10, 2017 08:49
[2017-08-10] MEDS ORDERED: LISINOPRIL 20 MG TAB PO SCH (09:00)
[2017-08-10] MEDS ORDERED: THIAMINE HCL 100 MG TAB PO SCH (09:00)
[2017-08-10] MEDS ORDERED: PILL SPLITTER OTHER PRN (09:00)
[2017-08-10] MEDS ORDERED: glipiZIDE 5 MG TAB PO SCH (09:00)
[2017-08-10] MEDS ORDERED: FOLIC ACID 1 MG TAB PO SCH (09:00)
[2017-08-10] MEDS ORDERED: cloNIDine HCL 0.1 MG TAB PO SCH (09:00)
[2017-08-10] MEDS ORDERED: NICOTINE 21 MG/24 HR PATCH T-DERMAL SCH (09:00)
[2017-08-10] MEDS: chlordiazePOXIDE 25 MG CAP PO SCH ×2 (09:24→13:10)
[2017-08-10 09:31] LABS: BICARBONATE 21.9 MEQ/L (21.0-32.0); BLOOD UREA NITROGEN 15 MG/DL (7-18); CHLORIDE 106 MEQ/L (98-107); CHOLESTEROL 120 MG/DL (120-200); CREATININE 1.07 MG/DL (0.60-1.30); GLOMERULAR FILTRATION RATE 70 ML/MIN (>89); GLUCOSE,RANDOM 145 MG/DL (74-106); SODIUM (NA) 139 MEQ/L (136-145); TRIGLYCERIDES 397 MG/DL (42-150)
[2017-08-10 09:38] LABS: HDL CHOLESTEROL 27.9 MG/DL (40.0-60.0); LDL CHOLESTEROL 13 MG/DL (0-99)
[2017-08-10] MEDS ORDERED: hydrOXYzine HCL 50 MG TAB PO PRN (13:30)
[2017-08-10] MEDS ORDERED: DEXTROSE 50% IN WATER 50 ML VIAL(D50) IV PUSH PRN (13:30)
[2017-08-10] MEDS ORDERED: GLUCAGON 1 MG/ML VIAL OTHER PRN (13:30)
[2017-08-10] MEDS ORDERED: THIA100 PO (14:03)
[2017-08-10 16:33] LABS: HEMOGLOBIN A1C 6.5 % (4.3-6.0)
[2017-08-10] MEDS ORDERED: INSULIN ASPART SUPPLEMENTAL SCALE SQ SCH (17:00)
[2017-08-10] MEDS ORDERED: metFORMIN HCL 500 MG TAB PO SCH (18:00)
[2017-08-10] MEDS ORDERED: ATORVASTATIN 20 MG TAB PO SCH (21:00)
== END 2017-08-10 14:30 | disposition left against medical advice (07) | DRG 881 ==
LOC: NEPJ 19:21 → NEDA 08-09 18:49 → H260 08-09 18:55
PROVIDERS: ADMIT Psychiatry & Neurology Psychiatry; ATTEND Psychiatry & Neurology Psychiatry
DX: F43.21 Adjustment disorder with depressed mood (principal); E11.42 Type 2 diabetes mellitus with diabetic polyneuropathy; R45.851 Suicidal ideations; E11.65 Type 2 diabetes mellitus with hyperglycemia; I10 Essential (primary) hypertension; F10.220 Alcohol dependence with intoxication, uncomplicated; Y90.8 Blood alcohol level of 240 mg/100 ml or more; E78.5 Hyperlipidemia, unspecified; F17.210 Nicotine dependence, cigarettes, uncomplicated; G89.29 Other chronic pain; J44.9 Chronic obstructive pulmonary disease, unspecified; M19.90 Unspecified osteoarthritis, unspecified site; F41.9 Anxiety disorder, unspecified; F25.0 Schizoaffective disorder, bipolar type; F60.89 Other specific personality disorders; Z79.84 Long term (current) use of oral hypoglycemic drugs
CPT/HCPCS: 80048; 80061; 80307; 83036

== ENCOUNTER 2017-08-10 20:05 | Emergency (ER) | payer OTHER ==
[~2017-08-10] VITALS: Ht 182.9 cm; Wt 115.0 kg
[~2017-08-10 20:05] MED LIST changes: -IBUP1TAB7 PO; -THERTAB15 PO; -TYLE325T PO
[2017-08-10 20:25] VITALS: BP 164/92; PULSE 99; RESP 18; TEMP 98.1; O2SAT 94
[2017-08-10] MEDS ORDERED: TETANUS/DIPHTHERIA TOXOID ADULT 0.5 ML VIAL IM ONE (21:45)
[2017-08-10] MEDS ORDERED: LIDOCAINE HCL 1% 50 ML VIAL INFIL ONE (21:45)
[2017-08-10] MEDS ORDERED: HALOPERIDOL LACTATE 5 MG/ML AMP ONE (21:59)
[2017-08-10] MEDS ORDERED: LORazepam 2 MG/ML VIAL ONE (21:59)
[2017-08-10] MEDS ORDERED: LORazepam 2 MG/ML VIAL IM ONE (22:00)
[2017-08-10] MEDS ORDERED: HALOPERIDOL LACTATE 5 MG/ML AMP IM ONE (22:00)
--- NOTE | 2017-08-10 22:00 | PD ---
HPI Chief Complaint: Psychiatric Symptoms Time Seen by Provider: 21:40 Travel History International Travel<30 days: No Contact w/Intl Traveler<30days: No Traveled to known affect area: No History of Present Illness HPI 62-year-old male was Gomez acted and brought in for evaluation. Patient has history alcohol abuse. Patient voiced suicidal threat to border police. Patient is intoxicated and unable to provide much information. Patient has been to the emergency room several times in the past alcohol intoxication, adjustment disorder with depressed mood and suspected personality disorder, bipolar disorder and schizoaffective disorder. Patient has history of hypertension, hyperlipidemia, type 2 diabetes, COPD, peripheral neuropathy. PFSH Past Medical History Arthritis: Yes (HANDS) Asthma: Yes Bipolar Disorder: Yes Anxiety: Yes Depression: Yes Heart Rhythm Problems: Yes Cancer: No Cardiovascular Problems: Yes High Cholesterol: Yes Chest Pain: No Congestive Heart Failure: No COPD: Yes Cerebrovascular Accident: No Diabetes: Yes Patient Takes Glucophage: No (unknown) Diminished Hearing: No Endocrine: Yes Gastrointestinal Disorders: No GERD: No Genitourinary: No Headaches: Yes Hepatitis: No Hiatal Hernia: No Heparin Induced Thrombocytopen: No Hypertension: Yes Implanted Vascular Access Dvce: No Kidney Stones: No Musculoskeletal: Yes (RIB PAIN FROM FALL PRIOR TO ADMISSION, MUSCLE SPASMS) Neurologic: Yes Psychiatric: No Reproductive: No Respiratory: Yes Immunizations Current: Yes Migraines: No Myocardial Infarction: No Renal Failure: No Seizures: No Sickle Cell Disease: No Sleep Apnea: No Thyroid Disease: Yes (AGE 11) Ulcer: No Tetanus Vaccination: Unknown PNEUMOCCOCAL Vaccine (Year): 2 Past Surgical History Abdominal Surgery: No Appendectomy: No Cardiac Surgery: No Cholecystectomy: No Ear Surgery: No Endocrine Surgery: No Eye Surgery: No Genitourinary Surgery: No Gynecologic Surgery: No Joint Replacement: No Neurologic Surgery: Yes (NECK SURGERY; CURRENTLY DENIES) Oral Surgery: Yes Pacemaker: No Thoracic Surgery: No Other Surgery: Yes Social History Alcohol Use: Yes (STATES HE STARTED DRINKS SEVERAL TIMES A MONTH) Tobacco Use: Yes (1 PPD) Substance Use: No Allergies-Medications (Allergen,Severity, Reaction): Coded Allergies: No Known Allergies (Verified Allergy, Unknown, 08/10/17) Reported Meds & Prescriptions Reported Meds & Active Scripts Active Gnp Vitamin B-1 (Thiamine HCl) 100 Mg Tab 100 Mg PO DAILY 15 Days Ibuprofen 600 Mg Tab 600 Mg PO TID PRN Risperdal (Risperidone) 1 Mg Tab 1 Mg PO DAILY Mirtazapine 15 Mg Tab 30 Mg PO HS Folic Acid 1 Mg Tablet 1 Mg PO DAILY Ventolin Hfa 18 GM Inh (Albuterol Sulfate) 90 Mcg/Act Aer 2 Puff INH Q8HR PRN Reported Glipizide ER (Glipizide) 2.5 Mg Eldon 2.5 Mg PO DAILY Take with breakfast or first main meal of the day Lisinopril 20 Mg Tab 20 Mg PO DAILY Atorvastatin (Atorvastatin Calcium) 20 Mg Tab 20 Mg PO HS Clonidine (Clonidine HCl) 0.1 Mg Tab 0.1 Mg PO BID Metformin (Metformin HCl) 500 Mg Tab 500 Mg PO TID With meals Review of Systems General / Constitutional: No: Fever Eyes: No: Visual changes HENT: No: Headaches Cardiovascular: No: Chest Pain or Discomfort Respiratory: No: Shortness of Breath Gastrointestinal: No: Abdominal Pain Genitourinary: No: Dysuria Musculoskeletal: No: Pain Skin: No Rash Neurologic: No: Weakness Psychiatric: No: Depression Endocrine: No: Polydipsia Hematologic/Lymphatic: No: Easy Bruising Physical Exam Narrative GENERAL: Well-nourished, well-developed patient. SKIN: Focused skin assessment warm/dry. HEAD: Normocephalic. EYES: No scleral icterus. No injection or drainage. NECK: Supple, trachea midline. No JVD or lymphadenopathy. CARDIOVASCULAR: Regular rate and rhythm without murmurs, gallops, or rubs. RESPIRATORY: Breath sounds equal bilaterally. No accessory muscle use. GASTROINTESTINAL: Abdomen soft, non-tender, nondistended. MUSCULOSKELETAL: No cyanosis, or edema. BACK: Nontender without obvious deformity. No CVA tenderness. Neurologic exam: Patient's intoxicated. Patient moves all extremity well. No obvious focal neurological deficit. Data Data Last Documented VS Vital Signs Date Time Temp Pulse Resp B/P (MAP) Pulse Ox O2 Delivery O2 Flow Rate FiO2 08/10/17 22:35 19 100 Room Air 08/10/17 20:25 98.1 99 164/92 (116) Orders Orders Complete Blood Count With Diff (08/10/17 21:45) Comprehensive Metabolic Panel (08/10/17 21:45) Prothrombin Time / Inr (Pt) (08/10/17 21:45) Act Partial Throm Time (Ptt) (08/10/17 21:45) Chest, Single Ap (08/10/17 21:45) Ct Brain W/O Iv Contrast(Rout) (08/10/17 21:45) Pelvis, Ap Only (Routine) (08/10/17 21:45) Iv Access Insert/Monitor (08/10/17 21:45) Ecg Monitoring (08/10/17 21:45) Oximetry (08/10/17 21:45) Alcohol (Ethanol) (08/10/17 21:45) Ct Cerv Spine W/O Contrast (08/10/17 21:45) Tetanus/Diphtheria Tox Adult (Tetanus/Di (08/10/17 21:45) Lidocaine 1% Inj (50 Ml) (Xylocaine 1% I (08/10/17 21:45) Psych Screen (08/10/17 21:51) Haloperidol Inj (Haldol Inj) (08/10/17 22:00) Lorazepam Inj (Ativan Inj) (08/10/17 22:00) Haloperidol Inj (Haldol Inj) (08/10/17 21:59) Lorazepam Inj (Ativan Inj) (08/10/17 21:59) Lorazepam Inj (Ativan Inj) (08/10/17 22:45) Lorazepam Inj (Ativan Inj) (08/10/17 22:45) Kcl Bolus Inj (08/10/17 23:30) Labs Laboratory Tests Test 08/10/17 22:20 White Blood Count 8.2 TH/MM3 Red Blood Count 3.87 MIL/MM3 Hemoglobin 13.2 GM/DL Hematocrit 37.6 % Mean Corpuscular Volume 97.2 FL Mean Corpuscular Hemoglobin 34.0 PG Mean Corpuscular Hemoglobin Concent 35.0 % Red Cell Distribution Width 13.1 % Platelet Count 190 TH/MM3 Mean Platelet Volume 8.6 FL Neutrophils (%) (Auto) 55.5 % Lymphocytes (%) (Auto) 30.5 % Monocytes (%) (Auto) 9.3 % Eosinophils (%) (Auto) 3.8 % Basophils (%) (Auto) 0.9 % Neutrophils # (Auto) 4.5 TH/MM3 Lymphocytes # (Auto) 2.5 TH/MM3 Monocytes # (Auto) 0.8 TH/MM3 Eosinophils # (Auto) 0.3 TH/MM3 Basophils # (Auto) 0.1 TH/MM3 CBC Comment DIFF FINAL Differential Comment Prothrombin Time 11.3 SEC Prothromb Time International Ratio 1.0 RATIO Activated Partial Thromboplast Time 27.8 SEC Blood Urea Nitrogen 11 MG/DL Creatinine 0.87 MG/DL Random Glucose 103 MG/DL Total Protein 7.4 GM/DL Albumin 3.9 GM/DL Calcium Level 7.7 MG/DL Alkaline Phosphatase 77 U/L Aspartate Amino Transf (AST/SGOT) 81 U/L Alanine Aminotransferase (ALT/SGPT) 62 U/L Total Bilirubin 0.5 MG/DL Sodium Level 140 MEQ/L Potassium Level 3.2 MEQ/L Chloride Level 106 MEQ/L Carbon Dioxide Level 24.3 MEQ/L Anion Gap 10 MEQ/L Estimat Glomerular Filtration Rate 90 ML/MIN Ethyl Alcohol Level 381 MG/DL [facility] Medical Decision Making Medical Screen Exam Complete: Yes Emergency Medical Condition: Yes Medical Record Reviewed: Yes Interpretation(s) Last Impressions Pelvis X-Ray [id number] Signed Impressions: Service Date/Time: Thursday, August 10, 2017 22:04 - CONCLUSION: Unremarkable examination of the pelvis. Dandre Tneorio Jr., MD Head CT [id number] Signed Impressions: Service Date/Time: Thursday, August 10, 2017 22:06 - CONCLUSION: 1. Frontal soft tissue swelling more pronounced on the left. 2. No acute intracranial abnormality. Dandre Tenorio Jr., MD Chest X-Ray [id number] Signed Impressions: Service Date/Time: Thursday, August 10, 2017 22:05 - CONCLUSION: Normal examination. Dandre Tenorio Jr., MD Cervical Spine CT [id number] Signed Impressions: Service Date/Time: Thursday, August 10, 2017 22:10 - CONCLUSION: 1. No fracture or dislocation. 2. Multilevel degenerative changes as detailed above. Dandre Tenorio Jr., MD 23:18 PM. CBC within normal limit. Potassium 3.2. Alcohol 381 Differential Diagnosis Differential diagnosis including substance-induced mood disorder, depression, suicidal, head injury, neck injury, chest wall injury. Narrative Course 62-year-old male with Gomez acted for suicidal threats and intoxication. Patient was put in the room in the ED. Patient started get up and fell on the floor. Patient did not have any loss of consciousness. Patient however has soft tissue swelling with 2 lacerations on the forehead. Pupils 1.5 mm equal reactive. No neck tenderness. Patient complaining of left chest wall tenderness. Patient was seen here 2 days ago left chest wall contusion. Patient moves all extremity well after the fall. No obvious tremor the injury. CT of head and neck will be ordered. Lacerations to the forehead will be repaired. TD booster given. KCl 20 mEq IV given. 23:23 PM. Patient is medically cleared for psychiatric evaluation and disposition. Diagnosis Primary Impression: Closed head injury Qualified Codes: S09.90XA - Unspecified injury of head, initial encounter Additional Impressions: Forehead laceration Qualified Codes: S01.81XA - Laceration without foreign body of other part of head, initial encounter Alcohol intoxication Qualified Codes: F10.920 - Alcohol use, unspecified with intoxication, uncomplicated Eugenio Irby MD Aug 10, 2017 22:00
[2017-08-10 22:32] LABS: AUTOMATED NEUTROPHIL # 4.5 TH/MM3 (1.8-7.7); BASOPHIL # 0.1 TH/MM3 (0-0.2); BASOPHIL % 0.9 % (0.0-2.0); EOSINOPHIL # 0.3 TH/MM3 (0-0.4); EOSINOPHIL % 3.8 % (0.0-4.0); HEMATOCRIT 37.6 % (39.0-51.0); HEMO FLAGS DIFF FINAL; LYMPH % 30.5 % (9.0-44.0); LYMPHOCYTE # 2.5 TH/MM3 (1.0-4.8); MEAN CELL VOLUME 97.2 FL (80.0-100.0); MONO % 9.3 % (0.0-8.0); NEUT % 55.5 % (16.0-70.0); PLATELET COUNT 190 TH/MM3 (150-450); RED BLOOD COUNT 3.87 MIL/MM3 (4.50-5.90); RED CELL DISTRIBUTION WIDTH 13.1 % (11.6-17.2); WHITE BLOOD COUNT 8.2 TH/MM3 (4.0-11.0)
--- NOTE | 2017-08-10 22:33 | RADRPT ---
EXAM DATE/TIME: 08/10/2017 22:05 [facility] COMPARISON: CHEST SINGLE AP, August 08, 2017, 13:56. INDICATIONS : Chest pain post fall. ETOH. MEDICAL HISTORY : Unobtainable. SURGICAL HISTORY : Unobtainable. ENCOUNTER: Initial ACUITY: 1 day PAIN SCORE: Non-responsive. LOCATION: Bilateral chest FINDINGS: A single view of the chest demonstrates the lungs to be symmetrically aerated without evidence of mas s, infiltrate or effusion. The cardiomediastinal contours are unremarkable. Osseous structures are intact. CONCLUSION: Normal examination. Dandre Tenorio Jr., MD on August 10, 2017 at 22:30 Board Certified Radiologist. This report was verified electronically.
[2017-08-10 22:35] VITALS: RESP 19; O2SAT 100
--- NOTE | 2017-08-10 22:43 | RADRPT ---
EXAM DATE/TIME: 08/10/2017 22:04 [facility] COMPARISON: No previous studies available for comparison. INDICATIONS : Pelvis pain post fall. ETOH. MEDICAL HISTORY : Unobtainable. SURGICAL HISTORY : Unobtainable. ENCOUNTER: Initial ACUITY: 1 day PAIN SCORE: Non-responsive. LOCATION: pelvis. FINDINGS: A single frontal view of the pelvis demonstrates no evidence of fracture. The bony pelvic ring is in tact. Bony mineralization is normal. The soft tissues are intact. CONCLUSION: Unremarkable examination of the pelvis. Dandre Tenorio Jr., MD on August 10, 2017 at 22:41 Board Certified Radiologist. This report was verified electronically.
[2017-08-10 22:45] LABS: APTT (PATIENT) 27.8 SEC (24.3-30.1); PROTHROMBIN TIME - PATIENT 11.3 SEC (9.8-11.6)
[2017-08-10] MEDS ORDERED: LORazepam 2 MG/ML VIAL IV PUSH ONE ×2 (22:45)
--- NOTE | 2017-08-10 22:47 | RADRPT ---
EXAM DATE/TIME: 08/10/2017 22:06 [facility] COMPARISON: CT BRAIN W/O CONTRAST, March 19, 2015, 13:10. INDICATIONS : ETOH, patient fell hit head, has open wound forehead. RADIATION DOSE: 56.35 CTDIvol (mGy) MEDICAL HISTORY : Cardiovascular disease. Hypertension. Chronic obstructive pulmonary disease.diabetic SURGICAL HISTORY : neck surgery ENCOUNTER: Initial ACUITY: 1 day PAIN SCALE: 9/10 LOCATION: cranial TECHNIQUE: Multiple contiguous axial images were obtained of the head. Using automated exposure control and adj ustment of the mA and/or kV according to patient size, radiation dose was kept as low as reasonably a chievable to obtain optimal diagnostic quality images. DICOM format image data is available electro nically for review and comparison. FINDINGS: CEREBRUM: The ventricles are normal for age. No evidence of midline shift, mass lesion, hemorrhage or acute in farction. No extra-axial fluid collections are seen. POSTERIOR FOSSA: The cerebellum and brainstem are intact. The 4th ventricle is midline. The cerebellopontine angle i s unremarkable. EXTRACRANIAL: The visualized portion of the orbits is intact. SKULL: Frontal soft tissue swelling more pronounced on the left. The calvaria is intact. No evidence of sku ll fracture. CONCLUSION: 1. Frontal soft tissue swelling more pronounced on the left. 2. No acute intracranial abnormality. Dandre Tenorio Jr., MD on August 10, 2017 at 22:45 Board Certified Radiologist. This report was verified electronically.
--- NOTE | 2017-08-10 22:51 | RADRPT ---
EXAM DATE/TIME: 08/10/2017 22:10 [facility] COMPARISON: No previous studies available for comparison. INDICATIONS : ETOH, patient fell hit floor. RADIATION DOSE: 38.15 CTDIvol (mGy) ; Patient motion MEDICAL HISTORY : Cardiovascular disease. Hypertension. Chronic obstructive pulmonary disease.diabetic SURGICAL HISTORY : neck surgery ENCOUNTER: Initial ACUITY: 1 day PAIN SCALE: 9/10 LOCATION: neck TECHNIQUE: Volumetric scanning of the cervical spine was performed. Multiplanar reconstructions in the sagittal, coronal and oblique axial planes were performed. Using automated exposure control and adjustment o f the mA and/or kV according to patient size, radiation dose was kept as low as reasonably achievable to obtain optimal diagnostic quality images. DICOM format image data is available electronically f or review and comparison. FINDINGS: Study is degraded by motion artifact. VERTEBRAE: Normal vertebral body height. ALIGNMENT: No evidence of subluxation. C2-C3: There is a broad-based disc bulge eccentric to the left. Central canal remains patent. Bony uncoverte bral hypertrophy is more pronounced on the left degenerative moderate left neural foraminal narrowing . The right remains patent. C3-C4: A broad-based disc osteophyte complex. This abuts the ventral portion of the cord. Bony uncovertebral hypertrophy generates moderate right neural foraminal narrowing. The left is patent. C4-C5: A broad-based disc osteophyte complex. This abuts the cord. Bony uncovertebral hypertrophy generating a moderate right neural foraminal narrowing. The left is patent. C5-C6: A broad-based disc osteophyte complex abutting the ventral portion of the cord and causing narrowing of the lateral recesses bilaterally. Bony uncovertebral hypertrophy without neural foraminal narrowin g. C6-C7: A broad-based disc osteophyte complex abutting the ventral portion of the cord and causing narrowing of the lateral recesses bilaterally. Bony uncovertebral hypertrophy generating mild left neural adam inal narrowing. The right remains patent. C7-T1: The bony spinal canal is normal in size. No evidence of disc bulge or herniation. The neural forami na are bilaterally patent. CONCLUSION: 1. No fracture or dislocation. 2. Multilevel degenerative changes as detailed above. Dandre Tenorio Jr., MD on August 10, 2017 at 22:46 Board Certified Radiologist. This report was verified electronically.
[2017-08-10 22:59] LABS: ALT (GPT) 62 U/L (12-78); ANION GAP 10 MEQ/L (5-15); AST (GOT) 81 U/L (15-37); BICARBONATE 24.3 MEQ/L (21.0-32.0); BLOOD UREA NITROGEN 11 MG/DL (7-18); CHLORIDE 106 MEQ/L (98-107); GLOMERULAR FILTRATION RATE 90 ML/MIN (>89); POTASSIUM 3.2 MEQ/L (3.5-5.1); SODIUM (NA) 140 MEQ/L (136-145)
[2017-08-10 23:00] VITALS: BP 142/74; PULSE 101; RESP 19; O2SAT 99
[2017-08-10 23:04] LABS: ALCOHOL 381 MG/DL (0-5); ALKALINE PHOSPHATASE 77 U/L (45-117); TOTAL BILIRUBIN ADULT 0.5 MG/DL (0.2-1.0)
--- NOTE | 2017-08-10 23:22 | PD ---
Physical Exam Narrative I was asked by Dr. Irby to repair patient's lacerations. Please see his dictation for full H&P. Data Data Last Documented VS Vital Signs Date Time Temp Pulse Resp B/P (MAP) Pulse Ox O2 Delivery O2 Flow Rate FiO2 08/10/17 22:35 19 100 Room Air 08/10/17 20:25 98.1 99 164/92 (116) Orders Orders Complete Blood Count With Diff (08/10/17 21:45) Comprehensive Metabolic Panel (08/10/17 21:45) Prothrombin Time / Inr (Pt) (08/10/17 21:45) Act Partial Throm Time (Ptt) (08/10/17 21:45) Chest, Single Ap (08/10/17 21:45) Ct Brain W/O Iv Contrast(Rout) (08/10/17 21:45) Pelvis, Ap Only (Routine) (08/10/17 21:45) Iv Access Insert/Monitor (08/10/17 21:45) Ecg Monitoring (08/10/17 21:45) Oximetry (08/10/17 21:45) Alcohol (Ethanol) (08/10/17 21:45) Ct Cerv Spine W/O Contrast (08/10/17 21:45) Tetanus/Diphtheria Tox Adult (Tetanus/Di (08/10/17 21:45) Lidocaine 1% Inj (50 Ml) (Xylocaine 1% I (08/10/17 21:45) Psych Screen (08/10/17 21:51) Haloperidol Inj (Haldol Inj) (08/10/17 22:00) Lorazepam Inj (Ativan Inj) (08/10/17 22:00) Haloperidol Inj (Haldol Inj) (08/10/17 21:59) Lorazepam Inj (Ativan Inj) (08/10/17 21:59) Lorazepam Inj (Ativan Inj) (08/10/17 22:45) Lorazepam Inj (Ativan Inj) (08/10/17 22:45) Labs Laboratory Tests Test 08/10/17 22:20 White Blood Count 8.2 TH/MM3 Red Blood Count 3.87 MIL/MM3 Hemoglobin 13.2 GM/DL Hematocrit 37.6 % Mean Corpuscular Volume 97.2 FL Mean Corpuscular Hemoglobin 34.0 PG Mean Corpuscular Hemoglobin Concent 35.0 % Red Cell Distribution Width 13.1 % Platelet Count 190 TH/MM3 Mean Platelet Volume 8.6 FL Neutrophils (%) (Auto) 55.5 % Lymphocytes (%) (Auto) 30.5 % Monocytes (%) (Auto) 9.3 % Eosinophils (%) (Auto) 3.8 % Basophils (%) (Auto) 0.9 % Neutrophils # (Auto) 4.5 TH/MM3 Lymphocytes # (Auto) 2.5 TH/MM3 Monocytes # (Auto) 0.8 TH/MM3 Eosinophils # (Auto) 0.3 TH/MM3 Basophils # (Auto) 0.1 TH/MM3 CBC Comment DIFF FINAL Differential Comment Prothrombin Time 11.3 SEC Prothromb Time International Ratio 1.0 RATIO Activated Partial Thromboplast Time 27.8 SEC Blood Urea Nitrogen 11 MG/DL Creatinine 0.87 MG/DL Random Glucose 103 MG/DL Total Protein 7.4 GM/DL Albumin 3.9 GM/DL Calcium Level 7.7 MG/DL Alkaline Phosphatase 77 U/L Aspartate Amino Transf (AST/SGOT) 81 U/L Alanine Aminotransferase (ALT/SGPT) 62 U/L Total Bilirubin 0.5 MG/DL Sodium Level 140 MEQ/L Potassium Level 3.2 MEQ/L Chloride Level 106 MEQ/L Carbon Dioxide Level 24.3 MEQ/L Anion Gap 10 MEQ/L Estimat Glomerular Filtration Rate 90 ML/MIN Ethyl Alcohol Level 381 MG/DL MDM Supervised Visit with VALENTE: No Procedures Procedure Narrative LACERATION REPAIR LOCATION: Right forehead LENGTH: Approximately 3 cm spider shaped NUMBER OF STITCHES/NICKI: 7 simple interrupted REPAIR: Verbal consent was obtained. The area of the laceration was cleaned and prepped. The laceration was infiltrated with lidocaine. The wound was copiously irrigated and explored without evidence of foreign body, bony involvement, ligament injury, tendon injury, or neurovascular injury. The wound was closed using 5-0 Vicryl. This was a single layer repair. The patient was advised to keep the affected area as clean and dry as possible using soap and water. There were no complications. Patient tolerated the procedure well. LACERATION REPAIR LOCATION: Left forehead LENGTH: Approximately 3 cm Y-shaped NUMBER OF STITCHES/NICKI: 5 simple interrupted REPAIR: Verbal consent was obtained. The area of the laceration was cleaned and prepped. The laceration was infiltrated with lidocaine. The wound was copiously irrigated and explored without evidence of foreign body, bony involvement, ligament injury, tendon injury, or neurovascular injury. The wound was closed using 5-0 Vicryl. This was a single layer repair. The patient was advised to keep the affected area as clean and dry as possible using soap and water. There were no complications. Patient tolerated the procedure well. Patient Instructions: Care For Your Absorbable Stitches (ED), General Instructions Don Garcia Aug 10, 2017 23:22
[2017-08-10] MEDS ORDERED: POTASSIUM CHLOR 20 MEQ PREMIX 100 ML IV ONE (23:30)
[2017-08-11 01:00] VITALS: BP 123/73; PULSE 92; RESP 14; O2SAT 97
[2017-08-11 03:00] VITALS: BP 128/81; PULSE 88; RESP 15; O2SAT 97
[2017-08-11 05:00] VITALS: BP 151/84; PULSE 99; RESP 22; O2SAT 98
[2017-08-11] MEDS ORDERED: LORazepam 2 MG/ML VIAL IV PUSH PRN ×4 (05:00)
[2017-08-11] MEDS ORDERED: FLUMAZENIL 0.5 MG/5 ML VIAL IV PUSH PRN (05:00)
[2017-08-11] MEDS ORDERED: LORazepam 2 MG TAB PO PRN (05:00)
[2017-08-11] MEDS ORDERED: LORazepam 1 MG TAB PO PRN (05:00)
[2017-08-11 06:27] VITALS: BP 136/62; PULSE 76; RESP 18; O2SAT 96
--- NOTE | 2017-08-11 10:56 | PD ---
History of Present Illness Chief Complaint: Psychiatric Symptoms Time Seen by Provider: 10:45 Travel History International Travel<30 Days: No Contact w/Intl Traveler<30days: No Known affected area: No Legal Status Legal Status: Gomez Act Gomez Act Signed By: Ling Last History of Present Illness: 62-year-old male with significant history of alcohol abuse, brought in last evening under a Gomez act for voicing suicidal ideation. Currently, patient is no longer intoxicated but does want assistance with his alcoholism. He is wanting to go to [facility] for further treatment. He does not have any suicidal or homicidal ideation, plan or intent. He does not have any psychotic symptoms and his cognition is intact. This physician reviewed the medical record from the patient's discharge yesterday and is not inclined to admit the patient to psychiatry. (Counter therapeutic to readmit.) PFSH Past Medical History Arthritis: Yes (HANDS) Asthma: Yes Bipolar Disorder: Yes Anxiety: Yes Depression: Yes Heart Rhythm Problems: Yes Cancer: No Cardiovascular Problems: Yes High Cholesterol: Yes Chest Pain: No Congestive Heart Failure: No COPD: Yes Cerebrovascular Accident: No Diabetes: Yes Patient Takes Glucophage: No (unknown) Diminished Hearing: No Endocrine: Yes Gastrointestinal Disorders: No GERD: No Genitourinary: No Headaches: Yes Hepatitis: No Hiatal Hernia: No Heparin Induced Thrombocytopen: No Hypertension: Yes Implanted Vascular Access Dvce: No Kidney Stones: No Musculoskeletal: Yes (RIB PAIN FROM FALL PRIOR TO ADMISSION, MUSCLE SPASMS) Neurologic: Yes Psychiatric: No Reproductive: No Respiratory: Yes Immunizations Current: Yes Migraines: No Myocardial Infarction: No Renal Failure: No Seizures: No Sickle Cell Disease: No Sleep Apnea: No Thyroid Disease: Yes (AGE 11) Ulcer: No Tetanus Vaccination: Unknown PNEUMOCCOCAL Vaccine (Year): 2 Past Surgical History Abdominal Surgery: No Appendectomy: No Cardiac Surgery: No Cholecystectomy: No Ear Surgery: No Endocrine Surgery: No Eye Surgery: No Genitourinary Surgery: No Gynecologic Surgery: No Joint Replacement: No Neurologic Surgery: Yes (NECK SURGERY; CURRENTLY DENIES) Oral Surgery: Yes Pacemaker: No Thoracic Surgery: No Other Surgery: Yes Psychiatric History Psychiatric History Hx Psychiatric Treatment: Patient had been [facility] previously History of Inpatient Treatment: Yes Guns or firearms in home: No Social History Hx Alcohol Use: Yes (STATES HE STARTED DRINKS SEVERAL TIMES A MONTH) Hx Tobacco Use: Yes (1 PPD) Hx Substance Use: Yes Substance Use Type: Alcohol Other Substances Used: States "too much alcohol, every day since my dad and aunt ". Hx of Substance Use Treatment: No Allergies-Medications (Allergen,Severity, Reaction): Coded Allergies: No Known Allergies (Verified Allergy, Unknown, 08/10/17) Reported Meds & Prescriptions Reported Meds & Active Scripts Active Gnp Vitamin B-1 (Thiamine HCl) 100 Mg Tab 100 Mg PO DAILY 15 Days Ibuprofen 600 Mg Tab 600 Mg PO TID PRN Risperdal (Risperidone) 1 Mg Tab 1 Mg PO DAILY Mirtazapine 15 Mg Tab 30 Mg PO HS Folic Acid 1 Mg Tablet 1 Mg PO DAILY Ventolin Hfa 18 GM Inh (Albuterol Sulfate) 90 Mcg/Act Aer 2 Puff INH Q8HR PRN Reported Glipizide ER (Glipizide) 2.5 Mg [place] 2.5 Mg PO DAILY Take with breakfast or first main meal of the day Lisinopril 20 Mg Tab 20 Mg PO DAILY Atorvastatin (Atorvastatin Calcium) 20 Mg Tab 20 Mg PO HS Clonidine (Clonidine HCl) 0.1 Mg Tab 0.1 Mg PO BID Metformin (Metformin HCl) 500 Mg Tab 500 Mg PO TID With meals Review of Systems Except as stated in HPI: all other systems reviewed are Neg Mental Status Examination Appearance: Appropriate Consciousness: Alert Orientation: x4 Motor Activity: Normal gait Speech: Unremarkable Language: Adequate Fund of Knowledge: Adequate Attention and Concentration: Adequate Memory: Unremarkable Mood: Appropriate Affect: Appropriate Thought Process & Associations: Intact Thought Content: Appropriate Hallucination Type: None Delusion Type: None Suicidal Ideation: No Suicidal Plan: No Suicidal Intention: No Homicidal Ideation: No Homicidal Plan: No Homicidal Intention: No Insight: Adequate Judgment: Adequate MDM Medical Decision Making Medical Record Reviewed: Yes Assessment/Plan Patient interviewed at bedside, medical record reviewed and case discussed with nurse Amezcua. Patient does not mean Gomez act criteria at this time and does not meet criteria for involuntary psychiatric hospitalization. Patient's primary problem at this time remains alcoholism. He is being given assistance for transportation to [facility] per his request. Orders Orders Complete Blood Count With Diff (08/10/17 21:45) Comprehensive Metabolic Panel (08/10/17 21:45) Prothrombin Time / Inr (Pt) (08/10/17 21:45) Act Partial Throm Time (Ptt) (08/10/17 21:45) Chest, Single Ap (08/10/17 21:45) Ct Brain W/O Iv Contrast(Rout) (08/10/17 21:45) Pelvis, Ap Only (Routine) (08/10/17 21:45) Iv Access Insert/Monitor (08/10/17 21:45) Ecg Monitoring (08/10/17 21:45) Oximetry (08/10/17 21:45) Alcohol (Ethanol) (08/10/17 21:45) Ct Cerv Spine W/O Contrast (08/10/17 21:45) Tetanus/Diphtheria Tox Adult (Tetanus/Di (08/10/17 21:45) Lidocaine 1% Inj (50 Ml) (Xylocaine 1% I (08/10/17 21:45) Psych Screen (08/10/17 21:51) Haloperidol Inj (Haldol Inj) (08/10/17 22:00) Lorazepam Inj (Ativan Inj) (08/10/17 22:00) Haloperidol Inj (Haldol Inj) (08/10/17 21:59) Lorazepam Inj (Ativan Inj) (08/10/17 21:59) Lorazepam Inj (Ativan Inj) (08/10/17 22:45) Lorazepam Inj (Ativan Inj) (08/10/17 22:45) Potassium Chlor 20 Meq Premix (Kcl 20 Me (08/10/17 23:30) Alcohol Withdrawal Asmt-Ciwa ONCE (08/11/17 04:52) Flumazenil Inj (Romazicon Inj) (08/11/17 05:00) Lorazepam (Ativan) (08/11/17 05:00) Lorazepam Inj (Ativan Inj) (08/11/17 05:00) Lorazepam (Ativan) (08/11/17 05:00) Lorazepam Inj (Ativan Inj) (08/11/17 05:00) Lorazepam Inj (Ativan Inj) (08/11/17 05:00) Lorazepam Inj (Ativan Inj) (08/11/17 05:00) Diet Regular Basic (08/11/17 Breakfast) Results Vital Signs Date Time Temp Pulse Resp B/P (MAP) Pulse Ox O2 Delivery O2 Flow Rate FiO2 08/11/17 06:27 76 18 136/62 (86) 96 Room Air 08/11/17 05:00 99 22 151/84 (106) 98 Room Air 08/11/17 03:00 88 15 128/81 (97) 97 Room Air 08/11/17 01:00 92 14 123/73 (90) 97 Room Air 08/10/17 23:00 101 19 142/74 (96) 99 Room Air 08/10/17 22:35 19 100 Room Air 08/10/17 20:25 98.1 99 18 164/92 (116) 94 Laboratory Tests Test 08/10/17 22:20 White Blood Count 8.2 Red Blood Count 3.87 Hemoglobin 13.2 Hematocrit 37.6 Mean Corpuscular Volume 97.2 Mean Corpuscular Hemoglobin 34.0 Mean Corpuscular Hemoglobin Concent 35.0 Red Cell Distribution Width 13.1 Platelet Count 190 Mean Platelet Volume 8.6 Neutrophils (%) (Auto) 55.5 Lymphocytes (%) (Auto) 30.5 Monocytes (%) (Auto) 9.3 Eosinophils (%) (Auto) 3.8 Basophils (%) (Auto) 0.9 Neutrophils # (Auto) 4.5 Lymphocytes # (Auto) 2.5 Monocytes # (Auto) 0.8 Eosinophils # (Auto) 0.3 Basophils # (Auto) 0.1 CBC Comment DIFF FINAL Differential Comment Prothrombin Time 11.3 Prothromb Time International Ratio 1.0 Activated Partial Thromboplast Time 27.8 Blood Urea Nitrogen 11 Creatinine 0.87 Random Glucose 103 Total Protein 7.4 Albumin 3.9 Calcium Level 7.7 Alkaline Phosphatase 77 Aspartate Amino Transf (AST/SGOT) 81 Alanine Aminotransferase (ALT/SGPT) 62 Total Bilirubin 0.5 Sodium Level 140 Potassium Level 3.2 Chloride Level 106 Carbon Dioxide Level 24.3 Anion Gap 10 Estimat Glomerular Filtration Rate 90 Ethyl Alcohol Level 381 Diagnosis Primary Impression: Alcohol abuse Patient Instructions: General Instructions, Care For Your Absorbable Stitches ( ED) Cristian Rahman MD Aug 11, 2017 10:56
--- NOTE | 2017-08-11 11:50 | PD ---
Physical Exam Time Seen by Provider: 11:40 Data Data Last Documented VS Vital Signs Date Time Temp Pulse Resp B/P (MAP) Pulse Ox O2 Delivery O2 Flow Rate FiO2 08/11/17 06:27 76 18 136/62 (86) 96 Room Air 08/10/17 20:25 98.1 Orders Orders Complete Blood Count With Diff (08/10/17 21:45) Comprehensive Metabolic Panel (08/10/17 21:45) Prothrombin Time / Inr (Pt) (08/10/17 21:45) Act Partial Throm Time (Ptt) (08/10/17 21:45) Chest, Single Ap (08/10/17 21:45) Ct Brain W/O Iv Contrast(Rout) (08/10/17 21:45) Pelvis, Ap Only (Routine) (08/10/17 21:45) Iv Access Insert/Monitor (08/10/17 21:45) Ecg Monitoring (08/10/17 21:45) Oximetry (08/10/17 21:45) Alcohol (Ethanol) (08/10/17 21:45) Ct Cerv Spine W/O Contrast (08/10/17 21:45) Tetanus/Diphtheria Tox Adult (Tetanus/Di (08/10/17 21:45) Lidocaine 1% Inj (50 Ml) (Xylocaine 1% I (08/10/17 21:45) Psych Screen (08/10/17 21:51) Haloperidol Inj (Haldol Inj) (08/10/17 22:00) Lorazepam Inj (Ativan Inj) (08/10/17 22:00) Haloperidol Inj (Haldol Inj) (08/10/17 21:59) Lorazepam Inj (Ativan Inj) (08/10/17 21:59) Lorazepam Inj (Ativan Inj) (08/10/17 22:45) Lorazepam Inj (Ativan Inj) (08/10/17 22:45) Potassium Chlor 20 Meq Premix (Kcl 20 Me (08/10/17 23:30) Alcohol Withdrawal Asmt-Ciwa ONCE (08/11/17 04:52) Flumazenil Inj (Romazicon Inj) (08/11/17 05:00) Lorazepam (Ativan) (08/11/17 05:00) Lorazepam Inj (Ativan Inj) (08/11/17 05:00) Lorazepam (Ativan) (08/11/17 05:00) Lorazepam Inj (Ativan Inj) (08/11/17 05:00) Lorazepam Inj (Ativan Inj) (08/11/17 05:00) Lorazepam Inj (Ativan Inj) (08/11/17 05:00) Diet Regular Basic (08/11/17 Breakfast) Diet Regular Basic (08/11/17 Lunch) Ed Discharge Order (08/11/17 11:49) Labs Laboratory Tests Test 08/10/17 22:20 White Blood Count 8.2 TH/MM3 Red Blood Count 3.87 MIL/MM3 Hemoglobin 13.2 GM/DL Hematocrit 37.6 % Mean Corpuscular Volume 97.2 FL Mean Corpuscular Hemoglobin 34.0 PG Mean Corpuscular Hemoglobin Concent 35.0 % Red Cell Distribution Width 13.1 % Platelet Count 190 TH/MM3 Mean Platelet Volume 8.6 FL Neutrophils (%) (Auto) 55.5 % Lymphocytes (%) (Auto) 30.5 % Monocytes (%) (Auto) 9.3 % Eosinophils (%) (Auto) 3.8 % Basophils (%) (Auto) 0.9 % Neutrophils # (Auto) 4.5 TH/MM3 Lymphocytes # (Auto) 2.5 TH/MM3 Monocytes # (Auto) 0.8 TH/MM3 Eosinophils # (Auto) 0.3 TH/MM3 Basophils # (Auto) 0.1 TH/MM3 CBC Comment DIFF FINAL Differential Comment Prothrombin Time 11.3 SEC Prothromb Time International Ratio 1.0 RATIO Activated Partial Thromboplast Time 27.8 SEC Blood Urea Nitrogen 11 MG/DL Creatinine 0.87 MG/DL Random Glucose 103 MG/DL Total Protein 7.4 GM/DL Albumin 3.9 GM/DL Calcium Level 7.7 MG/DL Alkaline Phosphatase 77 U/L Aspartate Amino Transf (AST/SGOT) 81 U/L Alanine Aminotransferase (ALT/SGPT) 62 U/L Total Bilirubin 0.5 MG/DL Sodium Level 140 MEQ/L Potassium Level 3.2 MEQ/L Chloride Level 106 MEQ/L Carbon Dioxide Level 24.3 MEQ/L Anion Gap 10 MEQ/L Estimat Glomerular Filtration Rate 90 ML/MIN Ethyl Alcohol Level 381 MG/DL [facility] Medical Record Reviewed: Yes Supervised Visit with VALENTE: No Narrative Course Please see previous providers notes. Patient's Gomez act has been lifted by the psychiatrist. He is now sober. He is denying any suicidal or homicidal ideation. He is going to [facility] voluntarily for treatment for his alcoholism. Diagnosis Primary Impression: Alcohol abuse Patient Instructions: General Instructions, Care For Your Absorbable Stitches ( ED) Marquis Mejia Aug 11, 2017 11:50
== END 2017-08-11 13:06 | disposition home or self-care (01) ==
LOC: NEPD 20:05 → NEPJ 08-11 13:06
DX: S09.90XA Unspecified injury of head, initial encounter (principal); S01.81XA Laceration without foreign body of other part of head, initial encounter; W19.XXXA Unspecified fall, initial encounter; F10.920 Alcohol use, unspecified with intoxication, uncomplicated; F31.9 Bipolar disorder, unspecified; F41.9 Anxiety disorder, unspecified; I10 Essential (primary) hypertension; E11.9 Type 2 diabetes mellitus without complications; Z23 Encounter for immunization
CPT/HCPCS: 12014; 70450; 71010; 72125; 72170; 80053; 80307; 85025; 85610; 85730; 90471; 90714; 96365; 96366; 96372; 96375; 96376; 99285; J1630; J2060; J3480

== ENCOUNTER 2017-08-16 08:43 | Emergency (ER) | payer OTHER ==
[~2017-08-16] VITALS: Ht 180.3 cm; Wt 105.0 kg
[2017-08-16 08:47] VITALS: BP 159/91; PULSE 111; RESP 24; TEMP 97.9; O2SAT 95
--- NOTE | 2017-08-16 09:20 | PD ---
HPI Chief Complaint: Psychiatric Symptoms Time Seen by Provider: 09:01 Travel History International Travel<30 days: No Contact w/Intl Traveler<30days: No Traveled to known affect area: No History of Present Illness HPI 62-year-old male presents to the emergency department with suicidal ideations. She states he "does not want to be around anymore". States these feelings started 3 weeks ago when his father . Says this morning he has had a " quart of vodka" but denies any other substance use or abuse. He does not have a plan. States he put his face into a tree 2 days ago but was unable to tell me if this was intentional or not. Patient then stated that he came to the emergency department for treatment from that incident. Pt denies loss of consciousness, falls, or pain other than the trauma that occurred a few days ago to his head. States his right ribs area is painful, especially with inspiration and movement. Says this rib pain is related to the fall but is still painful. PFSH Past Medical History Arthritis: Yes (HANDS) Asthma: Yes Bipolar Disorder: Yes Anxiety: Yes Depression: Yes Heart Rhythm Problems: Yes Cancer: No Cardiovascular Problems: Yes High Cholesterol: Yes Chest Pain: No Congestive Heart Failure: No COPD: Yes Cerebrovascular Accident: No Diabetes: Yes Patient Takes Glucophage: Yes Diminished Hearing: No Endocrine: Yes Gastrointestinal Disorders: No GERD: No Genitourinary: No Headaches: Yes Hepatitis: No Hiatal Hernia: No Heparin Induced Thrombocytopen: No Hypertension: Yes Implanted Vascular Access Dvce: No Kidney Stones: No Musculoskeletal: Yes (RIB PAIN FROM FALL PRIOR TO ADMISSION, MUSCLE SPASMS) Neurologic: Yes Psychiatric: No Reproductive: No Respiratory: Yes Immunizations Current: Yes Migraines: No Myocardial Infarction: No Renal Failure: No Seizures: No Sickle Cell Disease: No Sleep Apnea: No Thyroid Disease: Yes (AGE 11) Ulcer: No PNEUMOCCOCAL Vaccine (Year): 2 Past Surgical History Abdominal Surgery: No Appendectomy: No Cardiac Surgery: No Cholecystectomy: No Ear Surgery: No Endocrine Surgery: No Eye Surgery: No Genitourinary Surgery: No Gynecologic Surgery: No Joint Replacement: No Neurologic Surgery: Yes (NECK SURGERY; CURRENTLY DENIES) Oral Surgery: Yes Pacemaker: No Thoracic Surgery: No Other Surgery: Yes Social History Alcohol Use: Yes (STATES HE STARTED DRINKS SEVERAL TIMES A MONTH) Tobacco Use: Yes (1 PPD) Substance Use: Yes Allergies-Medications (Allergen,Severity, Reaction): Coded Allergies: No Known Allergies (Verified Allergy, Unknown, 08/10/17) Reported Meds & Prescriptions Reported Meds & Active Scripts Active Gnp Vitamin B-1 (Thiamine HCl) 100 Mg Tab 100 Mg PO DAILY 15 Days Ibuprofen 600 Mg Tab 600 Mg PO TID PRN Risperdal (Risperidone) 1 Mg Tab 1 Mg PO DAILY Mirtazapine 15 Mg Tab 30 Mg PO HS Folic Acid 1 Mg Tablet 1 Mg PO DAILY Ventolin Hfa 18 GM Inh (Albuterol Sulfate) 90 Mcg/Act Aer 2 Puff INH Q8HR PRN Reported Glipizide ER (Glipizide) 2.5 Mg [place] 2.5 Mg PO DAILY Take with breakfast or first main meal of the day Lisinopril 20 Mg Tab 20 Mg PO DAILY Atorvastatin (Atorvastatin Calcium) 20 Mg Tab 20 Mg PO HS Clonidine (Clonidine HCl) 0.1 Mg Tab 0.1 Mg PO BID Metformin (Metformin HCl) 500 Mg Tab 500 Mg PO TID With meals Review of Systems Except as stated in HPI: all other systems reviewed are Neg Physical Exam Narrative GENERAL: Well developed well nourished in mild distress, tearful SKIN: Focused skin assessment warm/dry. Forehead- 2 areas of healing lacerations with sutures in place. HEAD: Atraumatic. Normocephalic. EYES: Pupils equal and round. No scleral icterus. No injection or drainage. Left eye ecchymosis without ptosis, proptosis, or exophthalmos ENT: No nasal bleeding or discharge. Mucous membranes pink and moist. NECK: Trachea midline. No JVD. CARDIOVASCULAR: Regular rate and rhythm. No murmur appreciated. RESPIRATORY: No accessory muscle use. Clear to auscultation. Breath sounds equal bilaterally. GASTROINTESTINAL: Abdomen soft, non-tender, nondistended. Hepatic and splenic margins not palpable. MUSCULOSKELETAL: No obvious deformities. No clubbing. No cyanosis. No edema. NEUROLOGICAL: Awake and alert. No obvious cranial nerve deficits. Motor grossly within normal limits. Normal speech. PSYCHIATRIC: Appropriate mood and affect; insight and judgment normal. Data Data Last Documented VS Vital Signs Date Time Temp Pulse Resp B/P (MAP) Pulse Ox O2 Delivery O2 Flow Rate FiO2 08/16/17 18:05 91.2 118 20 150/85 (106) 98 Room Air Orders Orders Complete Blood Count With Diff (08/16/17 09:11) Comprehensive Metabolic Panel (08/16/17 09:11) Urinalysis - C+S If Indicated (08/16/17 09:11) Psych Screen (08/16/17 09:11) Drug Screen, Random Urine (08/16/17 09:11) Alcohol (Ethanol) (08/16/17 09:11) Chest, Pa & Lat (08/16/17 ) Ibuprofen (Motrin) (08/16/17 10:45) Alcohol Withdrawal Asmt-Ciwa ONCE (08/16/17 12:14) Lorazepam (Ativan) (08/16/17 12:15) Lorazepam (Ativan) (08/16/17 12:15) Diet Regular Basic (08/16/17 Lunch) Diet Regular Basic (08/16/17 Dinner) Ibuprofen (Motrin) (08/16/17 18:30) Diet Regular Basic (08/17/17 Breakfast) Labs Laboratory Tests Test 08/16/17 09:23 08/16/17 10:40 White Blood Count 8.4 TH/MM3 Red Blood Count 4.21 MIL/MM3 Hemoglobin 14.4 GM/DL Hematocrit 40.3 % Mean Corpuscular Volume 95.6 FL Mean Corpuscular Hemoglobin 34.1 PG Mean Corpuscular Hemoglobin Concent 35.7 % Red Cell Distribution Width 13.2 % Platelet Count 184 TH/MM3 Mean Platelet Volume 8.3 FL Neutrophils (%) (Auto) 59.4 % Lymphocytes (%) (Auto) 29.4 % Monocytes (%) (Auto) 9.2 % Eosinophils (%) (Auto) 1.2 % Basophils (%) (Auto) 0.8 % Neutrophils # (Auto) 5.0 TH/MM3 Lymphocytes # (Auto) 2.5 TH/MM3 Monocytes # (Auto) 0.8 TH/MM3 Eosinophils # (Auto) 0.1 TH/MM3 Basophils # (Auto) 0.1 TH/MM3 CBC Comment DIFF FINAL Differential Comment Blood Urea Nitrogen 15 MG/DL Creatinine 1.03 MG/DL Random Glucose 179 MG/DL Total Protein 7.6 GM/DL Albumin 4.1 GM/DL Calcium Level 7.9 MG/DL Alkaline Phosphatase 104 U/L Aspartate Amino Transf (AST/SGOT) 120 U/L Alanine Aminotransferase (ALT/SGPT) 93 U/L Total Bilirubin 0.7 MG/DL Sodium Level 139 MEQ/L Potassium Level 3.5 MEQ/L Chloride Level 105 MEQ/L Carbon Dioxide Level 19.4 MEQ/L Anion Gap 15 MEQ/L Estimat Glomerular Filtration Rate 74 ML/MIN Ethyl Alcohol Level 329 MG/DL Urine Color YELLOW Urine Turbidity CLEAR Urine pH 6.0 Urine Specific [place] 1.013 Urine Protein 100 mg/dL Urine Glucose (UA) NEG mg/dL Urine Ketones NEG mg/dL Urine Occult Blood SMALL Urine Nitrite NEG Urine Bilirubin NEG Urine Urobilinogen LESS THAN 2.0 MG/DL Urine Leukocyte Esterase NEG Urine RBC 1 /hpf Urine WBC LESS THAN 1 /hpf Urine Bacteria RARE /hpf Urine Hyaline Casts 3 /lpf Urine Mucus FEW /lpf Microscopic Urinalysis Comment CULT NOT INDICATED Urine Opiates Screen NEG Urine Barbiturates Screen NEG Urine Amphetamines Screen NEG Urine Benzodiazepines Screen POS Urine Cocaine Screen NEG Urine Cannabinoids Screen NEG MDM Medical Decision Making Medical Screen Exam Complete: Yes Emergency Medical Condition: Yes Differential Diagnosis suicidal ideation vs dementia vs delirium Chest wall contusion vs fracture vs pneumothorax. Narrative Course 62-year-old male presents to the emergency department with suicidal ideations. She states he "does not want to be around anymore". States these feelings started 3 weeks ago when his father . Says this morning he has had a " quart of vodka" but denies any other substance use or abuse. He does not have a plan. States he put his face into a tree 2 days ago but was unable to tell me if this was intentional or not. Patient then stated that he came to the emergency department for treatment from that incident. Pt denies loss of consciousness, falls, or pain other than the trauma that occurred a few days ago to his head. States his right ribs area is painful, especially with inspiration. Vital signs stable Physical exam consistent with fall 2-3 days ago- lacerations healing with Vicryl sutures in place. Left eye ecchymosis in healing stage. Pt tearful, depressed. Lungs with faint rhonchi right lobes. Labs- stable. UA demonstrated rare bacteria without any other evidence of infectious process. Concern for developing atelectasis- CXR- stable without acute process. EtOH consistent with pt history. Pt will be medically cleared for psych. Advised pt that he follow up with his PCP GEOVANNI for further treatment. Diagnosis Primary Impression: Suicidal ideation Additional Impression: Chest wall contusion Qualified Codes: S20.211A - Contusion of right front wall of thorax, initial encounter Condition: Stable Susu Bustos Aug 16, 2017 09:20
[2017-08-16 09:42] LABS: BASOPHIL # 0.1 TH/MM3 (0-0.2); BASOPHIL % 0.8 % (0.0-2.0); EOSINOPHIL # 0.1 TH/MM3 (0-0.4); EOSINOPHIL % 1.2 % (0.0-4.0); HEMATOCRIT 40.3 % (39.0-51.0); HEMO FLAGS DIFF FINAL; LYMPH % 29.4 % (9.0-44.0); LYMPHOCYTE # 2.5 TH/MM3 (1.0-4.8); MEAN CELL VOLUME 95.6 FL (80.0-100.0); MEAN CORPUSCULAR HEMOGLOBIN 34.1 PG (27.0-34.0); MEAN CORPUSCULAR HGB CONC 35.7 % (32.0-36.0); MONO % 9.2 % (0.0-8.0); NEUT % 59.4 % (16.0-70.0); PLATELET COUNT 184 TH/MM3 (150-450); RED BLOOD COUNT 4.21 MIL/MM3 (4.50-5.90); RED CELL DISTRIBUTION WIDTH 13.2 % (11.6-17.2); WHITE BLOOD COUNT 8.4 TH/MM3 (4.0-11.0)
[2017-08-16 09:56] LABS: ANION GAP 15 MEQ/L (5-15); AST (GOT) 120 U/L (15-37); BICARBONATE 19.4 MEQ/L (21.0-32.0); BLOOD UREA NITROGEN 15 MG/DL (7-18); CHLORIDE 105 MEQ/L (98-107); GLOMERULAR FILTRATION RATE 74 ML/MIN (>89); POTASSIUM 3.5 MEQ/L (3.5-5.1); SODIUM (NA) 139 MEQ/L (136-145)
[2017-08-16 09:57] LABS: ALT (GPT) 93 U/L (12-78)
--- NOTE | 2017-08-16 10:00 | RADRPT ---
EXAM DATE/TIME: 08/16/2017 09:29 [facility] COMPARISON: No previous studies available for comparison. INDICATIONS : Fell 3 days ago, pain with bruising right lateral ribs. Difficult breathing. MEDICAL HISTORY : None. SURGICAL HISTORY : None. ENCOUNTER: Initial ACUITY: 3 days PAIN SCORE: 10/10 LOCATION: Right chest FINDINGS: PA and lateral views of the chest demonstrate the lungs to be symmetrically aerated without evidence of mass, infiltrate or effusion. The cardiomediastinal contours are unremarkable. Osseous structure s are intact. CONCLUSION: Normal examination. Dandre Tenorio Jr., MD on August 16, 2017 at 9:57 Board Certified Radiologist. This report was verified electronically.
[2017-08-16 10:01] LABS: ALKALINE PHOSPHATASE 104 U/L (45-117); TOTAL BILIRUBIN ADULT 0.7 MG/DL (0.2-1.0)
[2017-08-16 10:08] LABS: ALCOHOL 329 MG/DL (0-5)
[2017-08-16] MEDS ORDERED: IBUPROFEN 600 MG TAB PO ONE ×2 (10:45→18:30)
[2017-08-16 11:00] LABS: BACTERIA, URINE RARE /hpf; BLOOD, URINE SMALL (NEG); COMMENT (UR) CULT NOT INDICATED; CULTURE IF INDICATED CULT NOT INDICATED; GLUCOSE,URINE NEG (NEG); HYALINE CAST, URINE 3 /lpf (RARE); KETONE, URINE NEG (NEG); MUCUS URINE FEW /lpf (OCC); NITRITE,URINE NEG (NEG); URINE COLOR YELLOW (YELLW/STRAW)
[2017-08-16] MEDS: LORazepam 2 MG TAB PO PRN ×3 (12:24→17:07)
[2017-08-16 18:05] VITALS: BP 150/85; PULSE 118; RESP 20; TEMP 91.2; O2SAT 98
[2017-08-16] MEDS: LORazepam 1 MG TAB PO PRN (22:57)
[2017-08-17] MEDS ORDERED: IBUPROFEN 600 MG TAB PO ONE (01:00)
[2017-08-17 06:17] VITALS: BP 153/97; PULSE 91; RESP 18
[2017-08-17] MEDS: LORazepam 1 MG TAB PO PRN (08:58)
[2017-08-17 10:30] VITALS: BP 151/80; PULSE 110; RESP 18
== END 2017-08-17 13:03 | disposition home or self-care (01) ==
LOC: NEPD 08:43 → NEPJ 08-17 13:03
DX: R45.851 Suicidal ideations (principal); S20.211A Contusion of right front wall of thorax, initial encounter; R51 Headache; R07.81 Pleurodynia; E11.9 Type 2 diabetes mellitus without complications; I10 Essential (primary) hypertension; E07.9 Disorder of thyroid, unspecified; E78.00 Pure hypercholesterolemia, unspecified; F17.200 Nicotine dependence, unspecified, uncomplicated; W19.XXXA Unspecified fall, initial encounter; Z79.84 Long term (current) use of oral hypoglycemic drugs; Z79.899 Other long term (current) drug therapy; Z87.39 Personal history of other diseases of the musculoskeletal system and connective tissue; Z87.09 Personal history of other diseases of the respiratory system; Z86.59 Personal history of other mental and behavioral disorders; Z86.79 Personal history of other diseases of the circulatory system; Z86.69 Personal history of other diseases of the nervous system and sense organs
CPT/HCPCS: 71020; 80053; 80307; 81001; 85025; 99284

== ENCOUNTER 2017-09-06 16:18 | Emergency (ER) | payer OTHER ==
[~2017-09-06] VITALS: Ht 182.9 cm; Wt 100.0 kg
[2017-09-06 16:20] VITALS: BP 194/76; PULSE 82; RESP 16; TEMP 97.9; O2SAT 94
[2017-09-06 16:42] VITALS: BP 177/81
--- NOTE | 2017-09-06 16:45 | PD ---
HPI Chief Complaint: Suicide Ideation/Attempt Time Seen by Provider: 16:34 Travel History International Travel<30 days: No Contact w/Intl Traveler<30days: No Traveled to known affect area: No History of Present Illness HPI This is a 62-year-old male who presents the emergency department with a history of alcoholism who reports depression, increasing hopelessness and helplessness and feeling like he doesn't want to live anymore. He denies any specific plan for suicide. He says he's been drinking more frequently ever since his father . He says currently he is intoxicated and he says he feels like he is going to start going into "DTs" as he feels shaky and a little sweaty. His symptoms are constant, mild, with no associated headache or chest pain. PFSH Past Medical History Arthritis: Yes (HANDS) Asthma: Yes Bipolar Disorder: Yes Anxiety: Yes Depression: Yes Heart Rhythm Problems: Yes Cancer: No Cardiovascular Problems: Yes High Cholesterol: Yes Chest Pain: No Congestive Heart Failure: No COPD: Yes Cerebrovascular Accident: No Diabetes: Yes Diminished Hearing: No Endocrine: Yes Gastrointestinal Disorders: No GERD: No Genitourinary: No Headaches: Yes Hepatitis: No Hiatal Hernia: No Heparin Induced Thrombocytopen: No Hypertension: Yes Implanted Vascular Access Dvce: No Kidney Stones: No Musculoskeletal: Yes (RIB PAIN FROM FALL PRIOR TO ADMISSION, MUSCLE SPASMS) Neurologic: Yes Psychiatric: No Reproductive: No Respiratory: Yes Immunizations Current: Yes Migraines: No Myocardial Infarction: No Renal Failure: No Seizures: No Sickle Cell Disease: No Sleep Apnea: No Thyroid Disease: Yes (AGE 11) Ulcer: No PNEUMOCCOCAL Vaccine (Year): 2 Past Surgical History Abdominal Surgery: No Appendectomy: No Cardiac Surgery: No Cholecystectomy: No Ear Surgery: No Endocrine Surgery: No Eye Surgery: No Genitourinary Surgery: No Gynecologic Surgery: No Joint Replacement: No Neurologic Surgery: Yes (NECK SURGERY; CURRENTLY DENIES) Oral Surgery: Yes Pacemaker: No Thoracic Surgery: No Other Surgery: Yes Social History Alcohol Use: Yes (STATES HE STARTED DRINKS SEVERAL TIMES A MONTH) Tobacco Use: Yes (1 PPD) Substance Use: Yes (ETOH early today "about a fifth of vodka") Allergies-Medications (Allergen,Severity, Reaction): Coded Allergies: No Known Allergies (Verified Allergy, Unknown, 12/4/17) Reported Meds & Prescriptions Reported Meds & Active Scripts Active Gnp Vitamin B-1 (Thiamine HCl) 100 Mg Tab 100 Mg PO DAILY 15 Days Ibuprofen 600 Mg Tab 600 Mg PO TID PRN Risperdal (Risperidone) 1 Mg Tab 1 Mg PO DAILY Mirtazapine 15 Mg Tab 30 Mg PO HS Folic Acid 1 Mg Tablet 1 Mg PO DAILY Ventolin Hfa 18 GM Inh (Albuterol Sulfate) 90 Mcg/Act Aer 2 Puff INH Q8HR PRN Reported Glipizide ER (Glipizide) 2.5 Mg [place] 2.5 Mg PO DAILY Take with breakfast or first main meal of the day Lisinopril 20 Mg Tab 20 Mg PO DAILY Atorvastatin (Atorvastatin Calcium) 20 Mg Tab 20 Mg PO HS Clonidine (Clonidine HCl) 0.1 Mg Tab 0.1 Mg PO BID Metformin (Metformin HCl) 500 Mg Tab 500 Mg PO TID With meals Review of Systems Except as stated in HPI: all other systems reviewed are Neg Physical Exam Narrative GENERAL:Well appearing, no acute distress SKIN: Focused skin assessment warm and dry. HEAD: Atraumatic. Normocephalic. EYES: Pupils equal and round. No injection or drainage. ENT: Moist mucous membranes NECK: Trachea midline. CARDIOVASCULAR: Regular rate and rhythm. No murmur appreciated. RESPIRATORY: Clear to auscultation. Breath sounds equal bilaterally. GASTROINTESTINAL: Abdomen soft, non-tender, nondistended. MUSCULOSKELETAL: No obvious deformities. NEUROLOGICAL: Awake and alert. No obvious cranial nerve deficits. Moving all extremities. PSYCHIATRIC: Intermittently tearful, depressed mood, no specific plan for suicide Data Data Last Documented VS Vital Signs Date Time Temp Pulse Resp B/P (MAP) Pulse Ox O2 Delivery O2 Flow Rate FiO2 09/06/17 16:20 97.9 82 16 194/76 (115) 94 Room Air Orders Orders Complete Blood Count With Diff (09/06/17 16:41) Comprehensive Metabolic Panel (09/06/17 16:41) Alcohol (Ethanol) (09/06/17 16:41) Drug Screen, Random Urine (09/06/17 16:41) [facility] Medical Decision Making Medical Screen Exam Complete: Yes Emergency Medical Condition: Yes Differential Diagnosis Alcohol intoxication, depression, substance induced mood disorder Narrative Course This is a 62-year-old male who presents to the emergency department reporting depression. He has a history of alcoholism and is currently intoxicated. He has been seen by psychiatry in the past and has mood disorder has been attributed mostly to his alcoholism. Labs will be obtained. Patient should be reassessed when sober. Raquel Amador MD Sep 06, 2017 16:45
[2017-09-06 17:19] LABS: AUTOMATED NEUTROPHIL # 5.6 TH/MM3 (1.8-7.7); BASOPHIL # 0.1 TH/MM3 (0-0.2); BASOPHIL % 0.7 % (0.0-2.0); EOSINOPHIL % 0.1 % (0.0-4.0); HEMATOCRIT 37.1 % (39.0-51.0); HEMO FLAGS DIFF FINAL; LYMPH % 15.3 % (9.0-44.0); LYMPHOCYTE # 1.2 TH/MM3 (1.0-4.8); MEAN CELL VOLUME 97.3 FL (80.0-100.0); MEAN CORPUSCULAR HGB CONC 34.9 % (32.0-36.0); MONO % 13.3 % (0.0-8.0); NEUT % 70.6 % (16.0-70.0); PLATELET COUNT 262 TH/MM3 (150-450); RED BLOOD COUNT 3.81 MIL/MM3 (4.50-5.90); RED CELL DISTRIBUTION WIDTH 13.9 % (11.6-17.2)
[2017-09-06] MEDS ORDERED: chlordiazePOXIDE 25 MG CAP PO ONE (17:45)
[2017-09-06 17:57] LABS: ALT (GPT) 43 U/L (12-78); ANION GAP 14 MEQ/L (5-15); AST (GOT) 52 U/L (15-37); BICARBONATE 19.7 MEQ/L (21.0-32.0); BLOOD UREA NITROGEN 7 MG/DL (7-18); CHLORIDE 94 MEQ/L (98-107); GLOMERULAR FILTRATION RATE 90 ML/MIN (>89); POTASSIUM 4.3 MEQ/L (3.5-5.1); SODIUM (NA) 128 MEQ/L (136-145)
[2017-09-06 17:59] LABS: ALKALINE PHOSPHATASE 80 U/L (45-117); TOTAL BILIRUBIN ADULT 0.4 MG/DL (0.2-1.0)
[2017-09-06 18:09] LABS: ALCOHOL 51 MG/DL (0-5)
[2017-09-06] MEDS ORDERED: ONDA4TAB15 PO (18:25)
[2017-09-06] MEDS ORDERED: HYDR-3516 PO (18:25)
[2017-09-06] MEDS ORDERED: ONDANSETRON ODT 4 MG TAB PO ONE (19:00)
[2017-09-06 19:03] VITALS: BP 184/77; PULSE 86; RESP 18; O2SAT 98
[2017-09-06 20:36] VITALS: BP 198/83; PULSE 93
[2017-09-06] MEDS ORDERED: cloNIDine HCL 0.1 MG TAB PO ONE (20:45)
[2017-09-06] MEDS ORDERED: LORazepam 2 MG/ML VIAL IV PUSH PRN ×4 (20:45)
[2017-09-06] MEDS ORDERED: LORazepam 2 MG TAB PO PRN (20:45)
[2017-09-06] MEDS ORDERED: FLUMAZENIL 0.5 MG/5 ML VIAL IV PUSH PRN (20:45)
[2017-09-06] MEDS: LORazepam 1 MG TAB PO PRN (20:46)
[2017-09-06 21:49] VITALS: BP 147/65; PULSE 87; RESP 18
[2017-09-07 00:29] VITALS: BP 120/57; PULSE 85; RESP 18; O2SAT 99
[2017-09-07] MEDS: LORazepam 1 MG TAB PO PRN (00:33)
--- NOTE | 2017-09-07 00:36 | PD ---
Physical Exam Date Seen by Provider: Sep 07, 2017 Time Seen by Provider: 00:34 Narrative The patient is a 62-year-old male was initially evaluated by the previous physician, Dr. Amador. Please refer to the initial history, physical, diagnostic evaluation, and treatment modality plan. Data Data Last Documented VS Vital Signs Date Time Temp Pulse Resp B/P (MAP) Pulse Ox O2 Delivery O2 Flow Rate FiO2 09/07/17 00:29 85 18 120/57 (78) 99 Room Air 09/06/17 16:20 97.9 Orders Orders Complete Blood Count With Diff (09/06/17 16:41) Comprehensive Metabolic Panel (09/06/17 16:41) Alcohol (Ethanol) (09/06/17 16:41) Drug Screen, Random Urine (09/06/17 16:41) Chlordiazepoxide (Librium) (09/06/17 17:45) Chlordiazepoxide (Librium) (09/06/17 17:45) Psych Screen (09/06/17 18:34) Diet Regular Basic (09/06/17 Dinner) Ondansetron Odt (Zofran Odt) (09/06/17 19:00) Clonidine (Catapres) (09/06/17 20:45) Alcohol Withdrawal Asmt-Ciwa ONCE (09/06/17 20:39) Flumazenil Inj (Romazicon Inj) (09/06/17 20:45) Lorazepam (Ativan) (09/06/17 20:45) Lorazepam Inj (Ativan Inj) (09/06/17 20:45) Lorazepam (Ativan) (09/06/17 20:45) Lorazepam Inj (Ativan Inj) (09/06/17 20:45) Lorazepam Inj (Ativan Inj) (09/06/17 20:45) Lorazepam Inj (Ativan Inj) (09/06/17 20:45) Labs Laboratory Tests Test 09/06/17 16:54 09/06/17 18:45 White Blood Count 8.0 TH/MM3 Red Blood Count 3.81 MIL/MM3 Hemoglobin 12.9 GM/DL Hematocrit 37.1 % Mean Corpuscular Volume 97.3 FL Mean Corpuscular Hemoglobin 34.0 PG Mean Corpuscular Hemoglobin Concent 34.9 % Red Cell Distribution Width 13.9 % Platelet Count 262 TH/MM3 Mean Platelet Volume 8.5 FL Neutrophils (%) (Auto) 70.6 % Lymphocytes (%) (Auto) 15.3 % Monocytes (%) (Auto) 13.3 % Eosinophils (%) (Auto) 0.1 % Basophils (%) (Auto) 0.7 % Neutrophils # (Auto) 5.6 TH/MM3 Lymphocytes # (Auto) 1.2 TH/MM3 Monocytes # (Auto) 1.1 TH/MM3 Eosinophils # (Auto) 0.0 TH/MM3 Basophils # (Auto) 0.1 TH/MM3 CBC Comment DIFF FINAL Differential Comment Blood Urea Nitrogen 7 MG/DL Creatinine 0.87 MG/DL Random Glucose 172 MG/DL Total Protein 7.4 GM/DL Albumin 3.6 GM/DL Calcium Level 7.9 MG/DL Alkaline Phosphatase 80 U/L Aspartate Amino Transf (AST/SGOT) 52 U/L Alanine Aminotransferase (ALT/SGPT) 43 U/L Total Bilirubin 0.4 MG/DL Sodium Level 128 MEQ/L Potassium Level 4.3 MEQ/L Chloride Level 94 MEQ/L Carbon Dioxide Level 19.7 MEQ/L Anion Gap 14 MEQ/L Estimat Glomerular Filtration Rate 90 ML/MIN Ethyl Alcohol Level 51 MG/DL Urine Opiates Screen POS Urine Barbiturates Screen NEG Urine Amphetamines Screen NEG Urine Benzodiazepines Screen NEG Urine Cocaine Screen NEG Urine Cannabinoids Screen NEG [facility] Medical Record Reviewed: Yes Supervised Visit with VALENTE: No Interpretation(s) Laboratory Tests Test 09/06/17 16:54 09/06/17 18:45 White Blood Count 8.0 TH/MM3 Red Blood Count 3.81 MIL/MM3 Hemoglobin 12.9 GM/DL Hematocrit 37.1 % Mean Corpuscular Volume 97.3 FL Mean Corpuscular Hemoglobin 34.0 PG Mean Corpuscular Hemoglobin Concent 34.9 % Red Cell Distribution Width 13.9 % Platelet Count 262 TH/MM3 Mean Platelet Volume 8.5 FL Neutrophils (%) (Auto) 70.6 % Lymphocytes (%) (Auto) 15.3 % Monocytes (%) (Auto) 13.3 % Eosinophils (%) (Auto) 0.1 % Basophils (%) (Auto) 0.7 % Neutrophils # (Auto) 5.6 TH/MM3 Lymphocytes # (Auto) 1.2 TH/MM3 Monocytes # (Auto) 1.1 TH/MM3 Eosinophils # (Auto) 0.0 TH/MM3 Basophils # (Auto) 0.1 TH/MM3 CBC Comment DIFF FINAL Differential Comment Blood Urea Nitrogen 7 MG/DL Creatinine 0.87 MG/DL Random Glucose 172 MG/DL Total Protein 7.4 GM/DL Albumin 3.6 GM/DL Calcium Level 7.9 MG/DL Alkaline Phosphatase 80 U/L Aspartate Amino Transf (AST/SGOT) 52 U/L Alanine Aminotransferase (ALT/SGPT) 43 U/L Total Bilirubin 0.4 MG/DL Sodium Level 128 MEQ/L Potassium Level 4.3 MEQ/L Chloride Level 94 MEQ/L Carbon Dioxide Level 19.7 MEQ/L Anion Gap 14 MEQ/L Estimat Glomerular Filtration Rate 90 ML/MIN Ethyl Alcohol Level 51 MG/DL Urine Opiates Screen POS Urine Barbiturates Screen NEG Urine Amphetamines Screen NEG Urine Benzodiazepines Screen NEG Urine Cocaine Screen NEG Urine Cannabinoids Screen NEG Differential Diagnosis Differential diagnoses includes alcohol intoxication, substance induced mood disorder, polysubstance abuse, depressive disorder NOS, bipolar affective disorder, adjustment reaction, stress reaction. Narrative Course I reviewed the patient's labs, alcohol level was only 51. I reevaluated the patient, he states he does occasionally have thoughts of suicide, states he tried to harm himself once before with would not specify. However, he pointed to a scar on his forehead and stated that was from a previous attempt. Therefore, psychiatric evaluation was ordered. The patient was seen by the psychiatry maintenance of way supervisor who states the patient's story is inconsistent, the patient states the scars from a fall. The patient does not currently have a plan for suicide. The psychiatric screener thinks the patient is stable for outpatient follow-up. Therefore, patient will be discharged. Diagnosis Primary Impression: Adjustment disorder with depressed mood Patient Instructions: General Instructions Additional Instruction: Follow-up at [facility] as needed. Return if symptoms worsen or progress. Med/Other Pt SpecificInfo: No Change to Meds Disposition: 01 DISCHARGE HOME Condition: Stable Trip Rivera MD Sep 07, 2017 00:36
[2017-09-07 05:54] VITALS: PULSE 78; RESP 16; O2SAT 99
[2017-09-07 07:30] VITALS: BP 130/83; TEMP 97.8
== END 2017-09-07 07:30 | disposition home or self-care (01) ==
LOC: NEPD 16:18
DX: F39 Unspecified mood [affective] disorder (principal); F31.9 Bipolar disorder, unspecified; F41.9 Anxiety disorder, unspecified; I10 Essential (primary) hypertension; J44.9 Chronic obstructive pulmonary disease, unspecified; E11.9 Type 2 diabetes mellitus without complications; M19.049 Primary osteoarthritis, unspecified hand; F17.200 Nicotine dependence, unspecified, uncomplicated; Z79.899 Other long term (current) drug therapy
CPT/HCPCS: 80053; 80307; 85025; 99283